=== PATIENT | male | born 1945 | race Caucasian/White ===

== ENCOUNTER 2022-06-09 23:29 | Emergency (ER) | payer OTHER, MEDICARE, SELFPAY ==
[2022-06-10 00:09] VITALS: BP 110/62; PULSE 83; RESP 18; TEMP 36.7; O2SAT 99; BMI 33.2
--- NOTE | 2022-06-10 00:25 | ED_ITS ---
HPI - Skin/Abscess/Foreign Bdy General Chief complaint: Skin/Abscess/Foreign Body Stated complaint: Right Foot Infection Time Seen by Provider: 06/09/22 23:35 History of Present Illness HPI narrative: 77-year-old man presenting to the emergency department on advice of Wound Care nurse who visited today and concern of potential infection in right foot post amputation stump. Has some drainage and smells bad. Apparently there was a revision of the initial amputation as Mr. Marrero was simply unhappy with the appearance of the closure. Has been open he says since 2nd surge Some whitish tissue was more newly visible. It has remained quite sensitive. [facility]. He has not had any fever chills the otherwise concern is of potential urinary tract infection bloody urine and order as well. Comparing notes from [facility] care everywhere from May 28 -- wound cultures were obtained and on resulted prior to hospitalization. It does appear as though there is a culture from 05/17 that grew Corynebacterium striatum Past medical includes mono neuropathy left posterior interosseous nerve Right carotid artery stenosis Nicotine dependence/abuse GERD History of peripheral vascular stenting history of stenosis of this. Overactive bladder History of foot amputation Delayed surgical wound healing of amputation stump of foot Hypertension Related Data Home Medications Medication Instructions Recorded Confirmed amlodipine 5 mg tablet 5 mg PO DAILY 06/10/22 06/10/22 aspirin 81 mg capsule 81 mg PO DAILY 06/10/22 06/10/22 atorvastatin 40 mg tablet (Lipitor) 40 mg PO DAILY 06/10/22 06/10/22 clopidogrel 75 mg tablet (Plavix) 75 mg PO DAILY 06/10/22 06/10/22 lidocaine 5 % topical patch 1 patch topical DAILY 06/10/22 06/10/22 mupirocin 2 % topical ointment 1 applic topical BID 06/10/22 06/10/22 omeprazole 20 mg capsule,delayed 20 mg PO DAILY 06/10/22 06/10/22 release silver (SilvaSorb topical 1 applic topical DIRECTED 06/10/22 06/10/22 gel,extended release) Allergies Allergy/AdvReac Type Severity Reaction Status Date / Time cortisone Allergy Unknown Unverified 05/27/22 15:39 house dust mite Allergy Unknown Unverified 05/27/22 15:39 perfume Allergy Unknown Unverified 05/27/22 15:39 Review of Systems Status of ROS: Reports: 10 or more systems reviewed and unremarkable except as noted in History and below [facility] Medical History (Updated 06/11/22 @ 23:04 by Hay Simpson MD) Carotid artery stenosis Chronic GERD Delayed surgical wound healing of foot amputation stump Foot amputee History of traumatic brain injury Mononeuropathy of left posterior interosseous nerve Overactive bladder PAD (peripheral artery disease) Right lower lobe lung mass Stenosis of peripheral vascular stent Tobacco abuse Social History Smoking Status: Current every day smoker What tobacco products do you use: cigarettes Do you use any of these nicotine containing products: None Second hand tobacco smoke exposure: No How often do you have a drink containing alcohol: never How often do you have six or more drinks on one occasion: Never AUDIT-C Alcohol total score: 0 Non-prescribed substance use: denies use Exam Narrative: Exam Narrative: Pleasant. Seems a little sleepy. Attends quite well though to this conversation. Cranial nerves 2-12. Breathing easily. Abdomen is soft and nontender. Cardiovascular with regular rate and rhythm Right extremity in question does have amputation stump with all toes missing. Generally with mild calor and erythema distally. Laterally in the incision is a 1 x 1/2 inch or so opening in which there is some yellowish green purulence. No significant induration. Fibrous tissue is evident within. Tender to palpation in this area. Const: Vital Signs, click to edit/add: Vital Signs - 24 hr 06/10/22 00:09 Temperature 98.0 F Pulse Rate [Right Pulse Oximeter] 83 Respiratory Rate 18 Blood Pressure [Ri ght Upper Arm] 110/62 Pulse Oximetry 99 Oxygen Delivery Me thod Room Air Documenting provider has reviewed patient's vital signs: yes Course Reevaluation(s) Reevaluation #1: Collected wound culture and nursing spent some time in normal saline irrigation of this wound. Redressed with wet to dry dressing. Vital Signs Vital signs: Initial Vital Signs Temperature 98.0 F 06/10/22 00:09 Temperature Source Temporal Artery Scan 06/10/22 00:09 Pulse Rate 83 06/10/22 00:09 Respiratory Rate 18 06/10/22 00:09 Blood Pressure 110/62 06/10/22 00:09 Blood Pressure Mean 78 06/10/22 00:09 Blood Pressure Position Sitting 06/10/22 00:09 Pulse Oximetry 99 06/10/22 00:09 Oxygen Delivery Method 06/10/22 00:09 Vital Signs Temperature 98.0 F 06/10/22 00:09 Pulse Rate 83 06/10/22 00:09 Respiratory Rate 18 06/10/22 00:09 Blood Pressure 110/62 06/10/22 00:09 Pulse Oximetry 99 06/10/22 00:09 Oxygen Delivery Method 06/10/22 00:09 Temperature 98.6 F 06/10/22 03:40 Pulse Rate 76 06/10/22 03:40 Respiratory Rate 16 06/10/22 03:40 Blood Pressure 116/67 06/10/22 03:40 Pulse Oximetry 99 06/10/22 02:00 Oxygen Delivery Method 06/10/22 02:00 MDM - Skin/Abscess/Foreign Bdy MDM Narrative Medical decision making narrative: If corynebacterium is present this might make treatment more difficult. I do not think it is unreasonable though to initiate doxycycline at this time. History of urinary frequency though took some time to obtain urine. Ultimately this did not look to be infected. Medical Records Attestation: I reviewed the patient's medical records. Lab Data Attestation: I reviewed the patient's lab results. Labs: Lab Results 06/10/22 Range/Units 01:41 Urine Color Yellow (Yellow) Urine Appearance Clear (Clear) Urine pH 6.5 (5.0-8.5) Ur Specific [place] 1.010 (1.000-1.030) Urine Protein Negative (Negative) Urine Glucose (UA) Negative (Negative) Urine Ketones Negative (Negative) Urine Blood Negative (Negative) Urine Nitrite Negative (Negative) Urine Bilirubin Negative (Negative) Urine Urobilinogen 1.0 (0.2-1.0) Ur Leukocyte Esterase Negative (Negative) Urine RBC 0-2 (0-2) Urine WBC 0-2 (0-5) Ur Squamous Epith Cells None (None-Few) Urine Bacteria None (None) Discharge Plan Discharge Clinical Impression: Cellulitis, Non-healing wound Patient Disposition: Home, Self-Care Condition: Stable Additional Instructions: Elevate your legs when you're at rest. Wound cultures are pending here. We will call if need to change direction of antibiotics. Start the antibiotics tonight. Doxycycline from [facility]. Take this for 12 days. Return for increasing tension/heat/pain/redness or fever. I understand you have a wound care nurse coming by on Tuesday. Prescriptions: No Action amlodipine 5 mg tablet 5 mg PO DAILY aspirin 81 mg capsule 81 mg PO DAILY clopidogrel [Plavix] 75 mg tablet 75 mg PO DAILY atorvastatin [Lipitor] 40 mg tablet 40 mg PO DAILY lidocaine 5 % adhesive patch,medicated 1 patch topical DAILY Rx Instructions: leave on most painful area for up to 12 hrs mupirocin 2 % ointment 1 applic topical BID Label Comments: apply topically to affected areas two times daily SilvaSorb Gel,Extended Release 1 applic topical DIRECTED Label Comments: apply topically as directed omeprazole 20 mg capsule,delayed release(DR/EC) 20 mg PO DAILY Follow Up/Referrals: Provider,Not a Local [Primary Care Provider] - Stand Alone Forms: [place] [employer] Info Instructions
--- OUTSIDE RECORDS SUMMARY | 2022-06-10 00:51 | XMS_ITS | Continuity of Care Document ---
:1945 Author Organization [facility] Care Team Providers Name Role Phone [facility] Unavailable Unavailable Problems Combined list of problems from Department of Defense and Veterans Affairs facilities. It does not include entries that were removed or entered in error. 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 Entered By: [facility] JOHAN LOGAN Comment: -left stent November 2018 Dec 15, 2018 Entered By: JOHAN LOGAN Comment: -right stent Sep 2016 Cervical Active Condition Jun 20, 2020 [place] radiculopathy Entered By: [facility] JAMES YEBOAH Comment: severe with loss of sensation in b/l hands and forearms Chronic back pain Active Condition [place] (SNOMED CT [facility] [id number]) Cognitive Active Condition [place] impairment [facility] CRACKED TOOTH Active Condition [place] [facility] Depression (SNOMED [place] [id number]) [facility] Dysphagia Active Condition Jun 20, 2020 [place] Entered By: [facility] JAMES YEBOAH Comment: 2/2 XRT GERD - Active Condition [place] Gastro-Esophageal [facility] Reflux Disease (SCT [id number]) 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, 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 Entered By: [facility] JAMES YEBOAH Comment: L TMA after nonhealing wound, requiring revision History of erectile Active Condition [place] dysfunction [facility] 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, 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 By: [facility] of larynx (SNOMED YASH VALDOVINOS CT [id number]) Comment: SCCa right TVC T2N0 10/04Apr 05, 2006 Entered By: MANOJ VALDOVINOS Comment: XRT Lumbar Active Condition Jun 20, 2020 [place] radiculopathy Entered By: [facility] JAMES YEBOAH Comment: severe with chronic saddle anesthesia and distal neuropathy Lumbar spondylosis Active Condition [place] [facility] Malignant neoplasm Active Condition [place] of lower lobe of [facility] right lung Malnutrition of Active Condition [place] moderate degree [facility] CS (Fan: 60% to less than 75% of standard weight) 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 [facility] uncertain significance Older adult Active Condition Jun 20, 2020 [place] behaviour Entered By: [facility] alteration JAMES YEBOAH Comment: episodes of impulsivity, resistance to redirection Pain in right hand Active Condition Jun 20, 2020 [place] Entered By: [facility] JAMES YEBOAH Comment: since injury in service Peripheral artery Active Condition Jun 20 020 [place] occlusive disease Entered By: [facility] JAMES YEBOAH Comment: s/p angioplasty LLE 12/2019 Solitary pulmonary Active Condition Jun 20, 2020 [place] nodule Entered By: [facility] JAMES YEBOAH Comment: 17 mm anterior RLL nodule, enlarging, concerning for adenocarcinoma Tinnitus Active Condition [place] [facility] Tobacco use Active [place] [facility] Traumatic brain Active Condition Jun 20 0 [place] injury Entered By: [facility] JAMES YEBOAH Comment: Occurred during service Urge incontinence Active Condition [place] of urine [facility] Ventricular Active Condition Jun 20, 2020 [place] premature Entered By: [facility] contractions JAMES YEBOAH Comment: symptomatic Diagnosis: Active Diagnosis [place] ICD-10-CM I77.9 [facility] Disorder of arteries and arterioles, unspecifiedwith Provider Comments: Peripheral artery occlusive disease (SCT [id number]) Diagnosis: Active Diagnosis [place] ICD-10-CM T87.53 [facility] Necrosis of amputation stump, right lower extremitywith Provider Comments: Necrosis of amputation stump, right lower extremity Diagnosis: Active Diagnosis [place] ICD-10-CM Z71.89 [facility] Other specified counselingwith Provider Comments: Other specified counseling Diagnosis: Active Diagnosis [place] ICD-10-CM R91.8 [facility] Other nonspecific abnormal finding of lung fieldwith Provider Comments: Multiple lung nodules Diagnosis: Active Diagnosis [place] ICD-10-CM L08.9 [facility] Local infection of the skin and subcutaneous tissue, unspwith Provider Comments: Local Infection of the Skin and Subcutaneous Tissue, unspecified Diagnosis: Active Diagnosis [place] ICD-10-CM Z71.9 [facility] Counseling, unspecifiedwith Provider Comments: Counseling, unspecified Diagnosis: Active Diagnosis [place] ICD-10-CM S91.309S [facility] Unspecified open wound, unspecified foot, sequelawith Provider Comments: Unspecified open Wound, unspecified Foot, [place] Diagnosis: Active Diagnosis [place] ICD-10-CM Z65.8 [facility] problems related to psychosocial circumstanceswith Provider Comments: Other specified Problems Related to Psychosocial Circumstances Diagnosis: Active Diagnosis [place] ICD-10-CM Z73.6 [facility] Limitation of activities due to disabilitywith Provider Comments: Limitation of activities due to disability Diagnosis: Active Diagnosis [place] ICD-10-CM R53.1 [facility] Weaknesswith Provider Comments: Weakness Diagnosis: Active Diagnosis [place] ICD-10-CM Z71.89 [facility] Other specified counselingwith Provider Comments: Other specified Counseling Diagnosis: Active Diagnosis [place] ICD-10-CM Z89.431 [facility] Acquired absence of right footwith Provider Comments: Acquired absence of right foot Diagnosis: Active Diagnosis [place] ICD-10-CM M62.81 [facility] Muscle weakness (generalized)with Provider Comments: Muscle weakness (generalized) Diagnosis: Active Diagnosis [place] ICD-10-CM Z71.81 [facility] Spiritual or zoroastrian counselingwith Provider Comments: Spiritual or zoroastrian counseling Diagnosis: Active Diagnosis [place] ICD-10-CM Z74.09 [facility] Other reduced mobilitywith Provider Comments: Reduced Mobility Diagnosis: Active Diagnosis [place] ICD-10-CM J18.0 [facility] Bronchopneumonia, unspecified organismwith Provider Comments: Bronchopneumonia, unspecified Organism Diagnosis: Active Diagnosis [place] ICD-10-CM Z91.81 [facility] History of fallingwith Provider Comments: History of falling Admit Reason: FTT Active Diagnosis [place] [facility] Diagnosis: Active Diagnosis [place] ICD-10-CM R06.02 [facility] Shortness of breathwith Provider Comments: Shortness of Breath Admit Reason: Active Diagnosis [place] CHILLS,WEAKNESS [facility] Diagnosis: Active Diagnosis [place] ICD-10-CM F43.21 [facility] Adjustment disorder with depressed moodwith Provider Comments: Adjustment Disorder with depressed mood Diagnosis: Active Diagnosis [place] ICD-10-CM F32.4 [facility] Major depressv disorder, single episode, in partial remiswith Provider Comments: Depression ([facility] [id number]) Diagnosis: Active Diagnosis [place] ICD-10-CM Z71.81 [facility] Spiritual or zoroastrian counselingwith Provider Comments: Spiritual or Baptism Counseling Diagnosis: Active Diagnosis [place] ICD-10-CM Z51.81 [facility] Encounter for therapeutic drug level monitoringwith Provider Comments: Encounter for Therapeutic Drug Level Monitoring Diagnosis: Active Diagnosis [place] ICD-10-CM Z89.439 [facility] Acquired absence of unspecified footwith Provider Comments: History of amputation of foot ([facility] [id number]) Diagnosis: Active Diagnosis [place] ICD-10-CM T87.89 [facility] Other complications of amputation stumpwith Provider Comments: Other Complications of Amputation Stump Diagnosis: Active Diagnosis [place] ICD-10-CM T87.89 [facility] Other complications of amputation stumpwith Provider Comments: Other complications of amputation stump Diagnosis: Active Diagnosis [place] ICD-10-CM Z79.899 [facility] Other terminal carman (current) drug therapywith Provider Comments: Other terminal carman (current) drug therapy Diagnosis: Active Diagnosis [place] ICD-10-CM Z01.818 [facility] Encounter for other preprocedural examinationwith Provider Comments: Encounter for other preprocedural examination Diagnosis: Active Diagnosis [place] ICD-10-CM T87.53 [facility] Necrosis of amputation stump, right lower extremitywith Provider Comments: Necrosis of Amputation Stump, right lower Extremity Diagnosis: Active Diagnosis [place] ICD-10-CM Z73.6 [facility] Limitation of activities due to disabilitywith Provider Comments: Limitation of Activities due to Disability Diagnosis: Active Diagnosis [place] ICD-10-CM R26.89 [facility] Other abnormalities of gait and mobilitywith Provider Comments: Other abnormalities of gait and mobility Diagnosis: Active Diagnosis [place] ICD-10-CM R26.89 [facility] Other abnormalities of gait and mobilitywith Provider Comments: Other Abnormalities of Gait and Mobility Diagnosis: Active Diagnosis [place] ICD-10-CM R13.12 [facility] Dysphagia, oropharyngeal phasewith Provider Comments: Dysphagia, oropharyngeal phase Diagnosis: Active Diagnosis [place] ICD-10-CM Z51.89 [facility] Encounter for other specified aftercarewith Provider Comments: Encounter for Other Specified Aftercare Admit Reason: S/P R Active Diagnosis [facility] [employer] [facility] Diagnosis: Active Diagnosis [place] ICD-10-CM M79.671 [facility] Pain in right footwith Provider Comments: Pain in right Foot Diagnosis: Active Diagnosis [place] ICD-10-CM I96 [facility] Gangrene, not elsewhere classifiedwith Provider Comments: Gangrene, not elsewhere classified Diagnosis: Active Diagnosis [place] ICD-10-CM I73.9 [facility] Peripheral vascular disease, unspecifiedwith Provider Comments: Peripheral vascular disease, unspecified Diagnosis: Active Diagnosis [place] ICD-10-CM Z48.89 [facility] Encounter for other specified surgical aftercarewith Provider Comments: Post anesthesia aftercare Diagnosis: Active Diagnosis [place] ICD-10-CM M54.16 [facility] Radiculopathy, lumbar regionwith Provider Comments: Lumbar radiculopathy ([facility] [id number]) Diagnosis: Active Diagnosis [place] ICD-10-CM I70.222 [facility] Ath[place]cl [place] arteries of extremities w rest pain, left legwith Provider Comments: Athscl [place] arteries of extremities w rest pain, left leg Diagnosis: Active Diagnosis [place] ICD-10-CM I70.222 [facility] Athscl [place] arteries of extremities w rest pain, left legwith Provider Comments: Atherosclerosis of [place] arteries of extremities with rest pain, left leg Diagnosis: Active Diagnosis [place] ICD-10-CM Z51.5 [facility] Encounter for palliative carewith Provider Comments: Encounter for Palliative Care Admit Reason: Active Diagnosis [place] CRITICAL LIMB [facility] ISCHEMIA Diagnosis: Active Diagnosis [place] ICD-10-CM Z51.81 [facility] Encounter for therapeutic drug level monitoringwith Provider Comments: Encounter for therapeutic drug level monitoring Admit Reason: RT Active Diagnosis [place] FOOT CELLULITIS [facility] Diagnosis: Active Diagnosis [place] ICD-10-CM M86.9 [facility] Osteomyelitis, unspecifiedwith Provider Comments: Osteomyelitis, unspecified Diagnosis: Active Diagnosis [place] ICD-10-CM L03.90 [facility] Cellulitis, unspecifiedwith Provider Comments: Cellulitis, unspecified Diagnosis: Active Diagnosis [place] ICD-10-CM D47.2 [facility] Monoclonal gammopathywith Provider Comments: Monoclonal gammopathy of uncertain significance (SCT [id number]) Diagnosis: Active Diagnosis [place] ICD-10-CM C34.31 [facility] Malignant neoplasm of lower lobe, right bronchus or lungwith Provider Comments: Malignant neoplasm of lower lobe of right lung (SCT [id number]) Diagnosis: Active Diagnosis [place] ICD-10-CM Z13.6 [facility] Encounter for screening for cardiovascular disorderswith Provider Comments: Encounter for Screening for Cardiovascular Disorders Diagnosis: Active Diagnosis [place] ICD-10-CM I70.234 [facility] [place]cl [place] art of right leg w ulcer of heel and midfootwith Provider Comments: Atherosclerosis of [place] Arteries of right Leg with Ulceration of Heel and Midfoot Diagnosis: Active Diagnosis [place] ICD-10-CM W19.XXXA V A [facility] Unspecified fall, initial encounterwith Provider Comments: Unspecified Fall, Initial Encounter Diagnosis: Active Diagnosis [place] ICD-10-CM K02.52 [facility] Dental caries on pit and fissure surfc penetrat into dentinwith Provider Comments: Dental caries on pit and fissure surface penetrating into dentin Diagnosis: Active Diagnosis [place] ICD-10-CM D47.2 [facility] Monoclonal gammopathywith Provider Comments: Monoclonal gammopathy of uncertain significance (SNOMED CT [id number]) Diagnosis: Active Diagnosis [place] ICD-10-CM R10.30 [facility] Lower abdominal pain, unspecifiedwith Provider Comments: Lower Abdominal Pain, unspecified Diagnosis: Active Diagnosis [place] ICD-10-CM Z23 [facility] Encounter for immunizationwith Provider Comments: Encounter for Immunization Diagnosis: Active Diagnosis [place] ICD-10-CM R06.00 [facility] Dyspnea, unspecifiedwith Provider Comments: Dyspnea, unspecified Diagnosis: Active Diagnosis [place] ICD-10-CM R06.00 [facility] Dyspnea, unspecifiedwith Provider Comments: Dyspnea Diagnosis: Active Diagnosis [place] ICD-10-CM R26.9 [facility] Unspecified abnormalities of gait and mobilitywith Provider Comments: Unspecified Abnormalities of Gait and Mobility Diagnosis: Active Diagnosis [place] ICD-10-CM M54.5 Low [facility] back painwith Provider Comments: Low Back Pain Diagnosis: Active Diagnosis [place] ICD-10-CM Z71.3 [facility] Dietary counseling and surveillancewith Provider Comments: Dietary counseling and surveillance Diagnosis: Active Diagnosis [place] ICD-10-CM R13.10 [facility] Dysphagia, unspecifiedwith Provider Comments: Dysphagia ([facility] [id number]) Diagnosis: Active Diagnosis [place] ICD-10-CM E46 [facility] Unspecified protein-calorie malnutritionwith Provider Comments: Malnutrition of moderate degree (Fan: 60% to less than 75% of standard weight) (SCT [id number]) Diagnosis: Active Diagnosis [place] ICD-10-CM F43.23 [facility] Adjustment disorder with mixed anxiety and depressed moodwith Provider Comments: Adjustment Disorder with mixed Anxiety and depressed mood Diagnosis: Active Diagnosis [place] ICD-10-CM R91.1 [facility] Solitary pulmonary nodulewith Provider Comments: Solitary pulmonary nodule (SCT [id number]) Diagnosis: Active Diagnosis [place] ICD-10-CM M17.0 [facility] Bilateral primary osteoarthritis of kneewith Provider Comments: Bilateral primary osteoarthritis of knee Diagnosis: Active Diagnosis [place] ICD-10-CM R93.1 [facility] Abnormal findings on dx imaging of heart and cor circwith Provider Comments: Abnormal Findings on Diagnostic Imaging of Heart and Coronary Circulation Diagnosis: Active Diagnosis [place] ICD-10-CM R74.8 [facility] Abnormal levels of other serum enzymeswith Provider Comments: Abnormal Levels of other Serum Enzymes Medications Combined list of outpatient medications from Department of Defense and Veterans Affairs facilities. Medications provided include 1) outpatient medications from the last 15 months, and 2) patient-reported medications. Medication Details Route Status Patient Prescription Prescription Last Ordering Order Source Instructions Expires Number Dispense Provider Date Date ACETAMINOPH TAKE TWO ORALLY 05/09/2021 [id number] SIERRA FITZPATRICK 04/09/ [place] 500[facility] TABLETS 1 GORY [facility] FOUR TIMES A DAY NEEDED FOR PAIN*NOT TO EXCEED 4000MG IN 24 HOURS FROM ALL SOURCES* ALBUTEROL INHALE 2 INHALA DISCONT 04/10/2022 [id number] PA LDON,TE 03/12/ [place] 90MCG/ACTUA PUFFS BY TION INUED 2 NZIN 2021 [facility] T (CFC-F) INHALATI HCS INHL,ORAL,8 ON EVERY .5GM DOSE 4 HOURS COUNTER NEEDED FOR IMMEDIAT E RELIEF OF SHORTNES S OF BREATH *SHAKE WELL* AMLODIPINE TAKE ONE ORALLY DISCONT 05/27/2023 [id number] M OORHEAD, 06/07/ [place] BESYLATE TABLET INUED 2 2021 [facility] [facility] A 10MG TAB BY MOUTH (EDIT) M HCS EVERY DAY TO LOWER BLOOD PRESSURE AMLODIPINE TAKE ONE ORALLY DISCONT 06/09/2022 [id number] P ALDON,TE 03/12/ [place] BESYLATE TABLET INUED 2 2021 [facility] 10MG TAB BY MOUTH HCS EVERY DAY TO LOWER BLOOD PRESSURE AMLODIPINE TAKE ONE ORALLY HOLD 06/03/2023 [id number] MOORH EAD, 06/03/ [place] BESYLATE TABLET 2 2021 [place] A 5MG TAB BY MOUTH M HCS EVERY DAY TO LOWER BLOOD PRESSURE ASPIRIN CHEW ONE ORALLY DISCONT 06/09/2022 [id number] PALDON ,TE 03/12/ [place] 81MG TABLET INUED 2 2021 [facility] TAB,CHEWABL BY MOUTH HCS E EVERY DAY FOR PERIPHER AL ARTERY DISEASE ASPIRIN CHEW ONE ORALLY 12/10/2021 [id number] CARCOR A,Y 11/10/ [place] 81MG TABLET 2 ASER P 2021 [facility] TAB,CHEWABL BY MOUTH HCS E EVERY DAY ATORVASTATI TAKE ONE ORALLY HOLD 06/03/2023 [id number] OBINNA , 06/02/ [place] CA 40MG TABLET 2021 [facility] TAB BY MOUTH M HCS EVERY DAY FOR CHOLESTE ROL/HEAR T PROTECTI ON ATORVASTATI TAKE ORALLY DISCONT 05/27/2023 [id number] MOORH EAD, 06/07/ [place] 40MG ONE-HALF INUED 2 NANCY2021 [place] [facility] TAB TABLET (EDIT) M HCS BY MOUTH EVERY DAY FOR CHOLESTE ROL/HEAR T PROTECTI ON ATORVASTATI TAKE ORALLY DISCONT 06/09/2022 [id number] PALDO N,TE 03/12/ [place] 40MG ONE-HALF INUED 2 2021 [facility] TAB TABLET HCS BY MOUTH EVERY DAY FOR CHOLESTE ROL/HEAR T PROTECTI ON ATORVASTATI TAKE ORALLY 12/10/2021 [id number] CARCO RA,Y 11/10/ [place] 40MG ONE-HALF 2 ASER P 2021 [facility] TAB TABLET HCS BY MOUTH EVERY DAY CEFADROXIL TAKE TWO ORALLY DISCONT 04/10/2022 [id number] P ALDON,TE 03/12/ [place] 500MG CAP CAPSULES INUED 2 NZIN 2021 [facility] BY MOUTH [facility]CS TWICE A DAY UNTIL Tuesday03/19/22 FOR INFECTIO N CHOLECALCIF TAKE ONE ORALLY DISCONT 06/09/2022 [id number] PALDON,TE 03/12/ [place] JUWAN 25MCG TABLET INUED 2 NZ2021 [facility] (1,000UNIT) BY MOUTH HCS TAB EVERY DAY FOR SUPPLEME NTATION/ BONE HEALTH CLEANSER,SK SPRAY TO TOPICA DISCONT 06/09/2022 [id number] PALDON,TE 03/12/ [place] INTEGRITY AFFECTED LLY INUED 2 2021 [facility] SPRAY,TOP AREA HCS TOPICALL Y TUESDAY, Y AND TUESDAY FOR WOUND CARE CLOPIDOGREL TAKE ONE ORALLY ACTIVE 05/27/2023 [id number] M [place], 05/31/ [place] BISULFATE TABLET 2 NANCY 2022 [facility] 75MG TAB BY MOUTH M HCS EVERY DAY FOR PAD AND OCCLUDED CAROTID STENT, REEVALUA TE AT 1 YEAR CLOPIDOGREL TAKE ONE ORALLY DISCONT 04/12/2022 [id number] PALDON,TE 03/12/ [place] BISULFATE TABLET INUED 2 NZ2021 [facility] 75MG TAB BY MOUTH HCS EVERY MORNING UNTIL 04/13/22 FOR PERIPHER AL ARTERY DISEASE AND STENTS COLLAGENASE APPLY TO TOPICA ACTIVE 06/23/2022 [id number] R AMPETSRE 05/24/ [place] 250UNT/GM AFFECTED LLY 2 ITER,EDGAR 2021 [place] [facility] OINT,TOP AREA HEW C HCS TOPICALL Y DIRECTED COLLAGENASE APPLY TOPICA DISCONT 03/12/2023 [id number] PA LDON,TE 03/12/ [place] 250UNT/GM MODERATE LLY INUED 2 NZIN 2021 [facility] OINT,TOP AMOUNT HCS TO RIGHT FOOT TMA INCISION TOPICALL Y TUESDAY, Y AND TUESDAY FOR WOUND CARE CYANOCOBALA TAKE ONE ORALLY DISCONT 06/09/2022 [id number] PALDON,TE 03/12/ [place] 1000MCG TABLET INUED 2 NZIN 2021 [facility] TAB BY MOUTH [facility]CS EVERY DAY FOR LOW B12 LEVELS CYCLOBENZAP TAKE ONE ORALLY 05/09/2021 [id number] SIERRA FITZPATRICK 04/09/ [place] RINE HCL TABLET 1 GORY 2020 [facility] 10MG TAB BY MOUTH [facility] EVERY 8 HOURS NEEDED FOR MUSCLE RELAXER DOXYCYCLINE TAKE ONE ORALLY DISCONT 01/24/2022 [id number] JAMEE,SY 12/25/ [place] HYCLATE TABLET INUED 2 ED W 2021 [facility] 100MG TAB BY MOUTH HCS TWICE A DAY ENSURE PLUS 1 CARTON ORALLY DISCONT 03/11/2023 [id number] FAWOLE,TA 03/12/ [place] LIQUID BY MOUTH INUED 2 JUDEEN O 2021 [facility] VANILLA THREE HCS TIMES A DAY FOLIC ACID TAKE ONE ORALLY DISCONT 06/09/2022 [id number] P ALDON,TE 03/12/ [place] 1MG TAB TABLET INUED 2 NZIN 2021 [facility] BY MOUTH [facility]CS EVERY DAY FOR LOW FOLATE/B LOOD LEVELS GABAPENTIN TAKE TWO ORALLY ACTIVE 06/02/2023 [id number] MO [place], 06/03/ [place] 300MG CAP CAPSULES 2 NANCY 2022 [place] [facility] BY MOUTH HCS THREE TIMES A DAY FOR NERVE PAIN *CAPSULE S MAY BE OPENED AND SPRINKLE D ON FOOD LIKE APPLESAU CE, OJ, PUDDING GABAPENTIN TAKE ONE ORALLY DISCONT 06/09/2022 [id number] P ALDON,TE 03/12/ [place] 300MG CAP CAPSULE INUED 2 NZ2021 [facility] BY MOUTH [facility]CS THREE TIMES A DAY FOR NERVE PAIN *CAPSULE S MAY BE OPENED AND SPRINKLE D ON FOOD LIKE APPLESAU CE, OJ, PUDDING GABAPENTIN TAKE ONE ORALLY 10/07/2021 [id number] C HRISTNER 09/09/ [place] 300MG CAP CAPSULE 2 GENARO 2021 [facility] BY MOUTH S HCS EVERY DAY GUAIFENESIN TAKE 1-2 ORALLY ACTIVE 06/02/2023 [id number] M [place], 06/01/ [place] 100MG/5ML TEASPOON 2 2021 [place] [facility] (SF & AF) FUL(S) M HCS LIQUID BY MOUTH FOUR TIMES A DAY NEEDED FOR COUGH LIDOCAINE APPLY TOPICA ACTIVE 05/26/2023 [id number] OBINNA , 05/25/ [place] 5% OINT,TOP MODERATE LLY 2 2021 [facility] AMOUNT M HCS TOPICALL Y THREE TIMES A DAY FOR PAIN LIDOCAINE APPLY TOPICA DISCONT 10/29/2022 [id number] MOORHE AD, 10/29/ [place] 5% OINT,TOP MODERATE LLY INUED 2 2021 [facility] [place] [facility] AMOUNT M HCS TOPICALL Y THREE TIMES A DAY FOR PAIN LIDOCAINE APPLY TOPICA DISCONT 07/19/2021 [id number] MOORHEA D, 07/22/ [place] 5% OINT,TOP MODERATE LLY INUE 1 2019 [place] [facility] AM[place] M HCS TOPICALL Y THREE TIMES A DAY FOR PAIN LIDOCAINE APPLY 1 TOPICA ACTIVE 05/01/2023 [id number] RAMPET SRE 05/04/ [place] 5% PATCH PATCH LLY 2 ITER,EDGAR 2021 [facility] TOPICALL HEW C HCS Y EVERY DAY FOR PAIN. WEAR FOR ONLY 12 HOURS THEN REMOVE FOR 12 HOURS. LIDOCAINE APPLY 1 TOPICA DISCONT 04/10/2022 [id number] PAL DON,TE 03/12/ [place] 5% PATCH PATCH LLY INUED 2 NZIN 2021 [facility] TOPICALL HCS Y EVERY EVENING FOR PAIN ON RIGHT FOOT AWAY FROM SURGICAL WOUND. WEAR FOR ONLY 12 HOURS THEN REMOVE FOR 12 HOURS. MAGNESIUM TAKE 1 ORALLY 07/04/2021 [id number] RANWEI LER 06/05/ [place] CITRATE BOTTLE 1 ,LETA B 2020 [facility] LIQUID,ORAL BY MOUTH HCS ONCE AT 12PM (NOON) ONE DAY BEFORE PROCEDUR E FOR COLON PREP MIRTAZAPINE TAKE ORALLY DISCONT 06/09/2022 [id number] PALDO N,TE 03/12/ [place] 30MG TAB ONE-HALF INUED 2 NZIN 2021 [facility] TABLET HCS BY MOUTH AT BEDTIME FOR APPETITE , MOOD AND SLEEP MUPIROCIN APPLY TOPICA 05/26/2022 [id number] ABHIJIT ARITA 04/26/ [place] 2% OINT,TOP MODERATE LLY 2 VELASQUEZ R 2021 [facility] AM[facility]CS TOPICALL Y TWICE A DAY NURSING USE MISCEL ACTIVE KACEY, 03/31/ [place] L[place] BUDDY 2021 [facility] MEDICATIONS S M HCS MISCELLANEO US OMEPRAZOLE TAKE TWO ORALLY ACTIVE 05/27/2023 [id number] MO ORHEAD, 06/07/ [place] 20MG CAP,EC CAPSULES 2 NANCY 2021 [facility] BY MOUTH M HCS EVERY DAY FOR STOMACH PROTECTI ON *CAPSULE MAY BE OPENED AND SPRINKLE D ON SOFT FOOD LIKE APPLESAU CE. DO NOT CHEW. SWALLOW IMMEDIAT KEYSHAWN WITH GLASS OF WATER OMEPRAZOLE TAKE TWO ORALLY DISCONT 06/09/2022 [id number] P ALDON,TE 03/12/ [place] 20MG CAP,EC CAPSULES INUED 2 NZIN 2021 [facility] BY MOUTH HCS EVERY DAY FOR STOMACH PROTECTI ON *CAPSULE MAY BE OPENED AND SPRINKLE D ON SOFT FOOD LIKE APPLESAU CE. DO NOT CHEW. SWALLOW IMMEDIAT [place] WITH GLASS OF WATER PEG-3350/EL TAKE 1 ORALLY 07/04/2021 [id number] RA FELICITA 06/05/ [place] ECTROLYTES CONTAINE 1 ,LETA B 2020 [place] [facility] PWDR [facility] (4 HCS LITERS) BY MOUTH DIRECTED FOR COLON PREP *MIX ACCORDIN G TO PACKAGE INSTRUCT IONS. *DRINK ONE-HALF CONTAINE R STARTING AT 4PM THE DAY BEFORE EXAM. DRINK REMAININ G ONE-HALF CONTAINE R 6 HOURS BEFORE EXAM. FOR COLON PREP *MIX ACCORDIN G TO PACKAGE INSTRUCT IONS. *DRINK ONE-HALF CONTAINE R STARTING AT 4PM THE DAY BEFORE EXAM. DRINK REMAININ G ONE-HALF CONTAINE R 6 HOURS BEFORE EXAM. PREDNISONE TAKE ORALLY 05/09/2021 [id number] SIERRA FITZPATRICK 04/09/ [place] 10MG TAB FOUR 1 GORY 2020 [facility] TABLETS [facility] BY MOUTH EVERY DAY FOR 3 DAYS, THEN TAKE THREE TABLETS EVERY DAY FOR 3 DAYS, THEN TAKE TWO TABLETS EVERY DAY FOR 3 DAYS, THEN TAKE ONE TABLET EVERY DAY FOR 3 DAYS FOR BACK PAIN SERTRALINE TAKE ORALLY 06/21/2021 [id number] MOORHE AD, 06/20/ [place] HCL 50MG ONE-HALF 1 NANCY 2019 [facility] TAB TABLET M HCS BY MOUTH EVERY DAY SILVASORB APPLY TOPICA ACTIVE 04/20/2023 [id number] RAMPETSR E 04/21/ [place] GEL,TOP SMALL LLY 2 ITER,EDGAR 2021 [facility] TO AFFECTED AREA TOPICALL Y DIRECTED SULFAMETHOX TAKE 1 ORALLY DISCONT 01/16/2022 [id number] CH RISTNER 12/17/ [place] AZOLE TABLET INUED 2 ,GENARO 2021 [place] [facility] 800MG/TRIME BY MOUTH S HCS THOPRIM TWICE A 160MG TAB DAY SULFAMETHOX TAKE 1 ORALLY DISCONT 01/12/2022 [id number] ME ADRYAN,AI 12/13/ [place] AZOLE TABLET INUED 2 TAMERA M 2021 [place] [facility] 800MG/TRIME BY MOUTH HCS THOPRIM TWICE A 160MG TAB DAY TROSPIUM CL TAKE ONE ORALLY 04/16/2021 [id number] RICKY 04/16/ [place] 20MG TAB TABLET 1 ,MOSES 2019 [facility] [facility] BY [facility]TH [facility] TWICE A DAY ON EMPTY STOMACH FOR BLADDER VASHE WOUND APPLY TOPICA ACTIVE 05/25/2023 [id number] R AMPETSRE 05/24/ [place] THERAPY DIRECTED LLY 2 ITER,EDGAR 2021 [place] [facility] SOLN,TOP TOPICALL HEW C HCS Y DIRECTED SOAK THE AFFECTED AREA FOR 5 MINUTES WITH THE VASHE-MO ISTENED GAUZE, THEN USE THE SAME GAUZE TO GENTLY EXFOLIAT E THE WOUND BASE. SOAK THE AFFECTED AREA FOR 5 MINUTES WITH THE VASHE-MO ISTENED GAUZE, THEN USE THE SAME GAUZE TO GENTLY EXFOLIAT E THE WOUND BASE. Allergies, Adverse Reactions, Alerts Combined list of allergies from Department of Defense and Veterans Affairs facilities. It does not include entries that were removed or entered in error. Substance Category Reaction Severity Reaction Status Date Comments S ource type Reported CORTISONE Propensity HIVES Propensity active [place] to adverse to adverse 5 [facility] reactions reactions HCS to drug to drug (finding) (finding) DUST Propensity Asthma Propensity active [place] to adverse finding to adverse 7 [facility] reaction reaction HCS (finding) (finding) PERFUME Propensity Cough, Propensity active [place] to adverse Throat to adverse 7 [facility] reaction irritation reaction HCS (finding) (finding) Immunizations Combined list of available immunizations from the Department of Defense and Veterans Affairs facilities. 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 PNEUMOCOCCAL complet [id number] 117, [place] POLYSACCHARID 2021 ed [id number] [facility] E PPV23 HCS COVID-19 1 complet JSN; PR [place] (Circadence), 2020 ed [id number]; [facility] VECTOR-NR, HCS [id number], PF, 1 0.5 ML INFLUENZA, complet [place] SEASONAL, 2015 ed [facility] INJECTABLE HCS PNEUMOCOCCAL complet Wyet h [place] CONJUGATE PCV 2016 ed [id number] [facility] 13 exp 02/12 HCS TDAP complet GlaxoSmit M [place] 2016 ed hKline [facility] KJ4MS exp HCS 07/17/17 PNEUMOCOCCAL, 01/12/ CHITO SPARKS 109 compl et [place] UNSPECIFIED 2004 [place] ed [place] [facility] FORMULATION [facility] TD(ADULT) 01/12/ CHITO SPARKS 139 complet [place] UNSPECIFIED 2004 [facility] ed [facility] Results Combined list of recent chemistry, hematology and other laboratory results from Department of Defense and Veterans Affairs, ranging from 15 months to all on record, depending upon the facility. Order Results Value Reference Date Interpretation Specimen Commen ts Source Name Range CBC & LEUKOCYTES 9.60 4.0 - 11.0 06/01 Specimen T ype: BLOOD [place] DIFF [#/VOLUME] Comment: Aut omated Differential Performed IS [facility] IN BLOOD Ordering Provi cl: GENARO PARK BY Report Released Date/Time: Dec 17, 2021 03:12 PM AUTOMATED Reporting Lab : [facility] HCS COUNT [place] [address] Performing Lab: [facility] [address] [place] [address] CBC & ERYTHROCYT 4.52 4.6 - 6.2 10 L Specimen Ty pe: BLOOD [place] DIFF ES /2021 Comment: Automa lloyd Differential Performed IS [facility] HCS [#/VOLUME] Ordering Pro vider: GENARO PARK IN BLOOD Report Release d Date/Time: Dec 17, 2021 03:12 PM BY Reporting Lab: [facility] HCS AUTOMATED [address] [facility] [address] COUNT Performing Lab: [facility] HCS [address] [facility] [address] CBC & HEMOGLOBIN 14.1 13.5 - 06/01 Specimen Type : BLOOD [place] DIFF [MASS/VOLU 17.9 /2021 Comment: Aut omated Differential Performed IS [facility] ME] IN Ordering Provid er: GENARO PARK BLOOD Report Released Date/Time: Dec 17, 2021 03:12 PM Reporting Lab: [facility] HCS [address] [place] [facility] [address] Performing Lab: [facility] HCS [address] [place] [facility] [address] CBC & HEMATOCRIT 43.4 41 - 54 06/01 Specimen Type : BLOOD [place] DIFF [VOLUME /2021 Comment: Automa lloyd Differential Performed IS [facility] FRACTION] Ordering Prov ider: GENARO PARK OF BLOOD Report Release d Date/Time: Dec 17, 2021 03:12 PM BY Reporting Lab: [facility] AUTOMATED [address] [facility] [address] COUNT Performing Lab: [facility] HCS [address] [place] [facility] [address] CBC & MCV 96.0 80 - 100 06/01 Specimen Type: BLOOD [place] DIFF [ENTITIC /2021 Comment: Autom ated Differential Performed IS [facility] VOLUME] BY Ordering Pro vider: GENARO PARK AUTOMATED Report Releas ed Date/Time: Dec 17, 2021 03:12 PM COUNT Reporting Lab: [facility] HCS [address] [place] [facility] [address] Performing Lab: [facility] HCS [address] [facility] [address] CBC & MCH 31.2 27 - 33 1004 Specimen Type: B LOOD [place] DIFF [ENTITIC /2021 Comment: Autom ated Differential Performed IS [facility] MASS] BY Ordering Provi cl: GENARO PARK AUTOMATED Report Releas ed Date/Time: Dec 17, 2021 03:12 PM COUNT Reporting Lab: [facility] HCS [address] [place] [address] Performing Lab: [facility] HCS [address] [place] [address] CBC & MCHC 32.5 32.0 - 06/01 Specimen Type: B LOOD [place] DIFF [MASS/VOLU 37.5 /2021 Comment: Aut omated Differential Performed IS [facility] ME] BY Ordering Provid er: GENARO PARK AUTOMATED Report Releas ed Date/Time: Dec 17, 2021 03:12 PM COUNT Reporting Lab: [facility] [place] [address] Performing Lab: [facility] [place] [address] CBC & PLATELETS 411 150 - 400 10 H Specimen Typ e: BLOOD [place] DIFF [#/VOLUME] /2021 Comment: Aut omated Differential Performed IS [facility] IN BLOOD Ordering Provi cl: GENARO PARK BY Report Released Date/Time: Dec 17, 2021 03:12 PM AUTOMATED Reporting Lab : [facility] COUNT [place] [address] Performing Lab: [facility] [place] [address] CBC & PLATELET 9.6 7.4 - 10.4 06/01 Specimen Typ e: BLOOD [place] DIFF MEAN /2021 Comment: Automa lloyd Differential Performed IS [facility] VOLUME Ordering Provid er: GENARO PARK [ENTITIC Report Release d Date/Time: Dec 17, 2021 03:12 PM VOLUME] IN Reporting La b: [facility] BLOOD [place] [address] AUTOMATED Performing La b: [facility] COUNT [place] [address] CBC & NEUTROPHIL 54.6 06/01 Specimen Type : BLOOD [place] DIFF S/100 /2021 Comment: Automa lloyd Differential Performed IS [facility] LEUKOCYTES Ordering Pro vider: GENARO PAKR IN BLOOD Report Release d Date/Time: Dec 17, 2021 03:12 PM BY MANUAL Reporting Lab : [facility] COUNT [address] [place] [facility] [address] Performing Lab: [facility] HCS [address] [facility] [address] CBC & LYMPHOCYTE 29.6 06/01 Specimen Type : BLOOD [place] DIFF S/100 Comment: Automa lloyd Differential Performed IS [facility] LEUKOCYTES Ordering Pro vider: GENARO PARK IN BLOOD Report Release d Date/Time: Dec 17, 2021 03:12 PM BY MANUAL Reporting Lab : [facility] COUNT [address] [place] [facility] [address] Performing Lab: [facility] [address] [place] [facility] [address] CBC & MONOCYTES/ 12.7 06/01 Specimen Type : BLOOD [place] DIFF 100 Comment: Automa lloyd Differential Performed IS [facility] LEUKOCYTES Ordering Pro vider: GENARO PARK IN BLOOD Report Release d Date/Time: Dec 17, 2021 03:12 PM BY Reporting Lab: [facility] AUTOMATED [address] [facility] [address] COUNT Performing Lab: [facility] [address] [place] [facility] [address] CBC & EOSINOPHIL 2.5 06/01 Specimen Type : BLOOD [place] DIFF S/ Comment: Automa lloyd Differential Performed IS [facility] LEUKOCYTES Ordering Pro vider: GENARO PARK IN BLOOD Report Release d Date/Time: Dec 17, 2021 03:12 PM BY Reporting Lab: [facility] AUTOMATED [address] [facility] [address] COUNT Performing Lab: [facility] [address] [place] [facility] [address] CBC & BASOPHILS/ 0.3 06/01 Specimen Type : BLOOD [place] DIFF 100 Comment: Automa lloyd Differential Performed IS [facility] LEUKOCYTES Ordering Pro vider: GENARO PARK IN BLOOD Report Release d Date/Time: Dec 17, 2021 03:12 PM BY MANUAL Reporting Lab : [facility] COUNT [address] [place] [facility] [address] Performing Lab: [facility] [address] [place] [facility] [address] CBC & ERYTHROCYT 15.7 11.5 - 10/04 H Specimen Type : BLOOD [place] DIFF E 14.5 /2021 Comment: Automa lloyd Differential Performed IS [facility] DISTRIBUTI Ordering Pro vider: GENARO PARK ON WIDTH Report Release d Date/Time: Dec 17, 2021 03:12 PM [RATIO] BY Reporting La b: [facility] AUTOMATED [facility] [address] COUNT Performing Lab: [facility] [address] [place] [facility] [address] CBC & LYMPHOCYTE 2.84 1.0 - 4.0 10 Specimen Ty pe: BLOOD [place] DIFF S /2021 Comment: Automa lloyd Differential Performed IS [facility] [#/VOLUME] Ordering Pro vider: GENARO PARK IN BLOOD Report Release d Date/Time: Dec 17, 2021 03:12 PM BY Reporting Lab: [facility] AUTOMATED [address] [facility] [address] COUNT Performing Lab: [facility] [address] [place] [facility] [address] CBC & MONOCYTES 1.22 0.1 - 1.0 10/04 H Specimen Typ e: BLOOD [place] DIFF [#/VOLUME] /2021 Comment: Aut omated Differential Performed IS [facility] IN BLOOD Ordering Provi cl: GENARO PARK BY Report Released Date/Time: Dec 17, 2021 03:12 PM AUTOMATED Reporting Lab : [facility] COUNT [address] [place] [facility] [address] Performing Lab: [facility] [address] [place] [facility] [address] CBC & NEUTROPHIL 5.24 2.0 - 7.7 10 Specimen Ty pe: BLOOD [place] DIFF S /2021 Comment: Automa lloyd Differential Performed IS [facility] [#/VOLUME] Ordering Pro vider: GENARO PARK IN BLOOD Report Release d Date/Time: Dec 17, 2021 03:12 PM BY Reporting Lab: [facility] AUTOMATED [address] [facility] [address] COUNT Performing Lab: [facility] [address] [place] [facility] [address] CBC & EOSINOPHIL 0.24 0 - 0.5 06/01 Specimen Type : BLOOD [place] DIFF S /2021 Comment: Automa lloyd Differential Performed IS [facility] [#/VOLUME] Ordering Pro vider: GENARO PARK IN BLOOD Report Release d Date/Time: Dec 17, 2021 03:12 PM BY Reporting Lab: [facility] AUTOMATED [facility] [address] COUNT Performing Lab: [facility] [address] [place] [address] CBC & BASOPHILS 0.03 0 - 0.2 06/01 Specimen Type: BLOOD [place] DIFF [#/VOLUME] /2021 Comment: Aut omated Differential Performed IS [facility] IN BLOOD Ordering Provi cl: GENARO PARK BY Report Released Date/Time: Dec 17, 2021 03:12 PM AUTOMATED Reporting Lab : [facility] [place] [address] Performing Lab: [facility] [place] [address] CBC & IG(META,MY 0.3 06/01 Specimen Type : BLOOD [place] DIFF ANNA,PRO) /2021 Comment: Autom ated Differential Performed IS [facility] Ordering Provid er: GENARO PARK Report Released Date/Time: Dec 17, 2021 03:12 PM Reporting Lab: [facility] [place] [address] Performing Lab: [facility] [place] [address] CBC & IMMATURE 0.03 0 - 0.1 06/01 Specimen Type: BLOOD [place] DIFF GRANULOCYT /2021 Comment: Aut omated Differential Performed IS [facility] ES Ordering Provid er: GENARO PARK [PRESENCE] Report Relea sed Date/Time: Dec 17, 2021 03:12 PM IN BLOOD Reporting Lab: [facility] BY [place] [address] AUTOMATED Performing La b: [facility] COUNT [place] [address] CBC & PLATELETS 2.0 0 - 10 06/01 Specimen Type: BLOOD [place] DIFF RETICULATE /2021 Comment: Aut omated Differential Performed IS [facility] D/100 Ordering Provid er: GENARO PARK PLATELETS Report Releas ed Date/Time: Dec 17, 2021 03:12 PM IN BLOOD Reporting Lab: [facility] BY [place] [address] AUTOMATED Performing La b: [facility] COUNT [place] [address] COMPREHE CREATININE 0.9 0.7 - 1.2 06/01 Specimen T ype: PLASMA [place] NSIVE [MASS/VOLU /2021 No comment en tered. IS [facility] METABOLI ME] IN Ordering Provi cl: GENARO PARK SERUM OR Report Release d Date/Time: Dec 17, 2021 03:12 PM PANEL+MG PLASMA Reporting Lab: [facility] [address] [place] [facility] [address] Performing Lab: [facility] [address] [facility] [address] COMPREHE UREA 12 8 - 26 10 Specimen Type: PLASMA [place] NSIVE No comment ente red. IS [facility] METABOLI [MASS/VOLU Ordering Pr ovider: GENARO PARK ME] IN Report Released Date/Time: Dec 17, 2021 03:12 PM PANEL+MG SERUM OR Reporting Lab : [facility] PLASMA [address] [facility] [address] Performing Lab: [facility] [address] [facility] [address] COMPREHE GLUCOSE 110 70 - 100 10/ H Specimen Type: PLASMA [place] NSIVE [MASS/VOLU /2021 No comment en tered. IS [facility] METABOLI ME] IN Ordering Provi cl: GENARO PARK SERUM OR Report Release d Date/Time: Dec 17, 2021 03:12 PM PANEL+MG PLASMA Reporting Lab: [facility] [address] [place] [facility] [address] Performing Lab: [facility] [address] [place] [facility] [address] COMPREHE SODIUM 139 136 - 145 06/01 Specimen Type : PLASMA [place] NSIVE [MOLES/VOL No comment en tered. IS [facility] METABOLI UME] IN Ordering Provi cl: GENARO PARK SERUM OR Report Release d Date/Time: Dec 17, 2021 03:12 PM PANEL+MG PLASMA Reporting Lab: [facility] [address] [place] [facility] [address] Performing Lab: [facility] [address] [facility] [address] COMPREHE POTASSIUM 3.7 3.5 - 5.1 06/01 Specimen Ty pe: PLASMA [place] NSIVE [MOLES/VOL /2021 No comment en tered. IS [facility] METABOLI UME] IN Ordering Provi cl: GENARO PARK SERUM OR Report Release d Date/Time: Dec 17, 2021 03:12 PM PANEL+MG PLASMA Reporting Lab: [facility] [address] [facility] [address] Performing Lab: [facility] [address] [facility] [address] COMPREHE CHLORIDE 108 98 - 107 10/ H Specimen Type : PLASMA [place] NSIVE [MOLES/VOL /2021 No comment en tered. IS [facility] METABOLI UME] IN Ordering Provi cl: GENARO PARK SERUM OR Report Release d Date/Time: Dec 17, 2021 03:12 PM PANEL+MG PLASMA Reporting Lab: [facility] [address] [facility] [address] Performing Lab: [facility] [address] [facility] [address] COMPREHE CARBON 24 22 - 06/01 Specimen Type: PLASMA [place] NSIVE No comment ente red. IS [facility] METABOLI TOTAL Ordering Provi cl: GENARO PARK [MOLES/VOL Report Relea sed Date/Time: Dec 17, 2021 03:12 PM PANEL+MG UME] IN Reporting Lab: [facility] SERUM OR [address] [place] [facility] [address] PLASMA Performing Lab: [facility] [address] [facility] [address] COMPREHE CALCIUM 9.2 8.4 - 10.2 06/01 Specimen Typ e: PLASMA [place] NSIVE [MASS/VOLU /2021 No comment en tered. IS [facility] METABOLI ME] IN Ordering Provi cl: GENARO PARK SERUM OR Report Release d Date/Time: Dec 17, 2021 03:12 PM PANEL+MG PLASMA Reporting Lab: [facility] [address] [facility] [address] Performing Lab: [facility] [address] [facility] [address] COMPREHE PROTEIN 6.8 6.0 - 8.3 06/01 Specimen Type : PLASMA [place] NSIVE [MASS/VOLU /2021 No comment en tered. IS [facility] METABOLI ME] IN Ordering Provi cl: GENARO PARK SERUM OR Report Release d Date/Time: Dec 17, 2021 03:12 PM PANEL+MG PLASMA Reporting Lab: [facility] [address] [facility] [address] Performing Lab: [facility] [address] [facility] [address] COMPREHE ALBUMIN 3.9 3.5 - 5.2 06/01 Specimen Type : PLASMA [place] NSIVE [MASS/VOLU /2021 No comment en tered. IS [facility] METABOLI ME] IN Ordering Provi cl: GENARO PARK SERUM OR Report Release d Date/Time: Dec 17, 2021 03:12 PM PANEL+MG PLASMA Reporting Lab: [facility] [address] [facility] [address] Performing Lab: [facility] [address] [facility] [address] COMPREHE BILIRUBIN. 0.4 0.2 - 1.2 06/01 Specimen T ype: PLASMA [place] NSIVE TOTAL /2021 No comment enter ed. IS [facility] METABOLI [MASS/VOLU Ordering Pr ovider: GENARO PARK ME] IN Report Released Date/Time: Dec 17, 2021 03:12 PM PANEL+MG SERUM OR Reporting Lab : [facility] PLASMA [address] [facility] [address] Performing Lab: [facility] [address] [facility] [address] COMPREHE MAGNESIUM 2.0 1.6 - 2.6 06/01 Specimen Ty pe: PLASMA [place] NSIVE [MASS/VOLU /2021 No comment en tered. IS [facility] METABOLI ME] IN Ordering Provi cl: GENARO PARK SERUM OR Report Release d Date/Time: Dec 17, 2021 03:12 PM PANEL+MG PLASMA Reporting Lab: [facility] [address] [facility] [address] Performing Lab: [facility] [address] [facility] [address] COMPREHE ANION GAP 7 5 - 15 06/01 Specimen Type : PLASMA [place] NSIVE IN SERUM /2021 No comment ente red. IS [facility] METABOLI OR PLASMA Ordering Pro vider: GENARO PARK Report Released Date/Time: Dec 17, 2021 03:12 PM PANEL+MG Reporting Lab: [facility] [address] [facility] [address] Performing Lab: [facility] [address] [facility] [address] COMPREHE ALKALINE 132 40 - 150 06/01 Specimen Type : PLASMA [place] NSIVE PHOSPHATAS /2021 No comment [facility] tered. [facility]I E Ordering Provi cl: GENARO PARK [ENZYMATIC Report Relea sed Date/Time: Dec 17, 2021 03:12 PM PANEL+MG ACTIVITY/V Reporting L ab: [facility] HCS OLUME] IN [address] [facility] [address] [facility] [address] SERUM OR Performing Lab : [facility] PLASMA [address] [facility] [address] COMPREHE ALANINE 23 <55 - 55 06/01 Specimen Type: PLASMA [place] NSIVE AMINOTRANS /2021 No comment en tered. [facility]I FERASE Ordering Provi cl: GENARO PARK [ENZYMATIC Report Relea sed Date/Time: Dec 17, 2021 03:12 PM PANEL+MG ACTIVITY/V Reporting L ab: [facility] OLUME] IN [facility] [address] SERUM OR Performing Lab : [facility] PLASMA [address] [facility] [address] COMPREHE ASPARTATE 18 <34 - 34 06/01 Specimen Typ e: PLASMA [place] NSIVE AMINOTRANS /2021 No comment en tered. IS [place] [facility] METABOLI FERASE Ordering Provi cl: GENARO PARK [ENZYMATIC Report Relea sed Date/Time: Dec 17, 2021 03:12 PM PANEL+MG ACTIVITY/V Reporting L ab: [facility] OLUME] IN [facility] [address] SERUM OR Performing Lab : [facility] PLASMA [address] [facility] [address] COMPREHE GLOMERULAR 88 60 06/01 Specimen Typ e: PLASMA [place] NSIVE FILTRATION No comment en tered. IS [place] [facility] METAB[place]I RATE/1.73 Ordering Pro vider: GENARO PARK SQ Report Released Date/Time: Dec 17, 2021 03:12 PM PANEL+MG M.PREDICTE Reporting L ab: [facility] D [VOLUME [facility] [address] RATE/AREA] Performing L ab: [facility] HCS IN SERUM, [facility] [address] PLASMA OR BLOOD BY CREATININE -BASED FORMULA (CKD-EPI) ELP/IMMF PROTEIN 6.9 6.0 - 8.3 06/01 Specimen Type : SERUM [place] IX,SERUM [MASS/VOLU /2021 Comment: Au tomated Differential Performed IS [facility] PANEL ME] IN Ordering Provid er: GENARO PARK SERUM OR Report Release d Date/Time: Dec 17, 2021 03:12 PM PLASMA Reporting Lab: [facility] [address] [facility] [address] Performing Lab: [facility] [address] [facility] [address] ELP/IMMF PROTEIN.MO 0.85 06/01 Specimen Typ e: SERUM [place] IX,SERUM NOCLONAL /2021 Comment: Auto mated Differential Performed IS [facility] PANEL [MASS/VOLU Ordering Pro vider: GENARO PARK [place]] IN Report Released Date/Time: Dec 17, 2021 03:12 PM SERUM OR Reporting Lab: [facility] PLASMA BY [facility] [address] ELECTROPHO Performing L ab: [facility] [address] [facility] [address] ELP/IMMF IMMUNOFIXA IgM 06/01 Specimen Typ e: SERUM [place] IX,SERUM TION FOR kappa Comment: Auto mated Differential Performed IS [facility] PANEL SERUM OR Ordering Provi cl: GENARO PARK PLASMA Report Released Date/Time: Dec 17, 2021 03:12 PM Reporting Lab: [facility] [address] [facility] [address] Performing Lab: [facility] [address] [facility] [address] ELP/IMMF ALBUMIN 3.53 3.66 - 10/04 L Specimen Type: SERUM [place] IX,SERUM [MASS/VOLU 4.78 /2021 Comment: Au tomated Differential Performed IS [facility] PANEL ME] IN Ordering Provid er: GENARO PARK SERUM OR Report Release d Date/Time: Dec 17, 2021 03:12 PM PLASMA BY Reporting Lab : [facility] ELECTROPHO [facility] [address] RESIS Performing Lab: [facility] [address] [place] [address] ELP/IMMF ALPHA 1 0.34 0.14 - 10 Specimen Type: SERUM [place] IX,SERUM GLOBULIN 0.38 /2021 Comment: Auto mated Differential Performed IS [facility] PANEL [MASS/VOLU Ordering Pro vider: GENARO PARK [place]] IN Report Released Date/Time: Dec 17, 2021 03:12 PM SERUM OR Reporting Lab: [facility] PLASMA BY [facility] [address] ELECTROPHO Performing L ab: [facility] RESIS [facility] [address] [place] [facility] [address] ELP/IMMF ALPHA 2 0.88 0.50 - 10/04 Specimen Type: SERUM [place] IX,SERUM GLOBULIN 0.90 /2021 Comment: Auto mated Differential Performed IS AL HCS PANEL [MASS/VOLU Ordering Pro vider: GENARO PARK] IN Report Released Date/Time: Dec 17, 2021 03:12 PM SERUM OR Reporting Lab: [facility] PLASMA BY [facility] [address] ELECTROPHO Performing L ab: [facility] RESIS [facility] [address] [place] [facility] [address] ELP/IMMF BETA 1 0.35 0.33 - 10/04 Specimen Type: [place]UM [place] IX,SERUM GLOBULIN 0.55 /2021 Comment: Auto mated Differential Performed IS [facility]CS PANEL [MASS/VOLU Ordering Pro vider: GENARO PARK] IN Report Released Date/Time: Dec 17, 2021 03:12 PM SERUM OR Reporting Lab: [facility] PLASMA BY [facility] [address] ELECTROPHO Performing L ab: [facility] RESIS [facility] [address] [place] [facility] [address] ELP/IMMF BETA 2 1.17 0.20 - 10/04 H Specimen Type: SERUM [place] IX,SERUM GLOBULIN 0.52 /2021 Comment: Auto mated Differential Performed IS AL [facility]CS PANEL [MASS/VOLU Ordering Pro vider: GENARO PARK] IN Report Released Date/Time: Dec 17, 2021 03:12 PM SERUM OR Reporting Lab: [facility] PLASMA BY [facility] [address] ELECTROPHO Performing L ab: [facility] RESIS [facility] [address] [place] [facility] [address] ELP/IMMF GAMMA 0.63 0.58 - 10/04 Specimen Type: SERUM [place] IX,SERUM GLOBULIN 1.72 Comment: Auto mated Differential Performed IS AL HCS PANEL [MASS/VOLU Ordering Pro vider: GENARO PARK] IN Report Released Date/Time: Dec 17, 2021 03:12 PM SERUM OR Reporting Lab: [facility] PLASMA BY [facility] [address] ELECTROPHO Performing L ab: [facility] RESIS [facility] [address] [place] [facility] [address] ELP/IMMF PROTEIN 6.9 6.0 - 8.3 06/01 Specimen Type : SERUM [place] IX,SERUM [MASS/VOLU /2021 Comment: Au tomated Differential Performed IS [facility] PANEL ME] IN Ordering Provid er: GENARO PARK SERUM OR Report Release d Date/Time: Dec 17, 2021 03:12 PM PLASMA Reporting Lab: [facility] [address] [place] [facility] [address] Performing Lab: [facility] [address] [place] [facility] [address] ELP/IMMF IMMUNOELEC MONOCLON 06/01 Specimen Ty pe: SERUM [place] IX,SERUM TROPHORESI AL Comment: Au tomated Differential Performed IS [facility] PANEL S FOR Ordering Provid er: GENARO PARK SERUM OR Report Release d Date/Time: Dec 17, 2021 03:12 PM PLASMA Reporting Lab: [facility] [address] [place] [facility] [address] Performing Lab: [facility] [address] [facility] [address] TOTAL IGM 1171.0 22.0 - 10/04 H Specimen Type: S [place] IMMUNOGL [MASS/VOLU 293.0 /2021 Comment: Au tomated Differential Performed IS [facility] OB ME] IN Ordering Provid er: GENARO PARK (IGA,IGG SERUM OR Report Releas ed Date/Time: Dec 17, 2021 03:12 PM ,IGM) PLASMA Reporting Lab: [facility] [address] [place] [facility] [address] Performing Lab: [facility] [address] [place] [facility] [address] TOTAL IGG 800.5 540.0 - 06/01 Specimen Type: S MGID[place]IA [place] IMMUNOGL [MASS/VOLU 1822.0 Comment: Au tomated Differential Performed IS [facility] OB ME] IN Ordering Provid er: GENARO PARK (IGA,IGG SERUM OR Report Releas ed Date/Time: Dec 17, 2021 03:12 PM ,IGM) PLASMA Reporting Lab: [facility] [address] [place] [facility] [address] Performing Lab: [facility] [place] [address] TOTAL IGA 114.2 63.0 - 10/04 Specimen Type: S [place] IMMUNOGL [MASS/VOLU 645.0 /2021 Comment: Au tomated Differential Performed IS [facility] OB ME] IN Ordering Provid er: GENARO PARK (IGA,IGG SERUM OR Report Releas ed Date/Time: Dec 17, 2021 03:12 PM ,IGM) PLASMA Reporting Lab: [facility] [place] [address] Performing Lab: [facility] [place] [address] BASIC CREATININE 0.8 0.7 - 1.2 03/31 Specimen Ty pe: PLASMA [place] METABOLI [MASS/VOLU /2021 No comment e ntered. IS [facility] C ME] IN Ordering Provid er: SHENA FITZPATRICK PANEL+MG SERUM OR Report Releas ed Date/Time: Mar 30, 2022 12:16 PM PLASMA Reporting Lab: [facility] [address] [place] [facility] [address] Performing Lab: [facility] [address] [place] [facility] [address] BASIC UREA 12 8 - 26 03/31 Specimen Type: P LASMA [place] METABOLI NITROGEN /2021 No comment ent ered. IS [facility] C [MASS/VOLU Ordering Pro vider: SHENA FITZPATRICK+MG ME] IN Report Release d Date/Time: Mar 30, 2022 12:16 PM SERUM OR Reporting Lab: [facility] PLASMA [address] [place] [facility] [address] Performing Lab: [facility] [address] [place] [facility] [address] BASIC GLUCOSE 95 74 - 100 03/31 Specimen Type: PLASMA [place] METABOLI [MASS/VOLU /2021 No comment e ntered. IS [facility] C ME] IN Ordering Provid er: SHENA FITZPATRICK PANEL+MG SERUM OR Report Releas ed Date/Time: Mar 30, 2022 12:16 PM PLASMA Reporting Lab: [facility] [address] [place] [facility] [address] Performing Lab: [facility] [address] [place] [facility] [address] BASIC SODIUM 141 136 - 145 03/31 Specimen Type: PLASMA [place] METABOLI [MOLES/VOL /2021 No comment e ntered. IS [facility] UME] IN Ordering Provid er: SHENA FITZPATRICK R PANEL+MG SERUM OR Report Releas ed Date/Time: Mar 30, 2022 12:16 PM PLASMA Reporting Lab: [facility] [address] [place] [facility] [address] Performing Lab: [facility] [address] [place] [facility] [address] BASIC POTASSIUM 4.0 3.5 - 5.1 03/31 Specimen Typ e: PLASMA [place] METABOLI [MOLES/VOL /2021 No comment e ntered. IS [facility] C UME] IN Ordering Provid er: SHENA FITZPATRICK R PANEL+MG SERUM OR Report Releas ed Date/Time: Mar 30, 2022 12:16 PM PLASMA Reporting Lab: [facility] [address] [place] [facility] [address] Performing Lab: [facility] [address] [facility] [address] BASIC CHLORIDE 112 98 - 107 03/31 H Specimen Type: PLASMA [place] METABOLI [MOLES/VOL /2021 No comment e ntered. IS [facility] C UME] IN Ordering Provid er: SHENA FITZPATRICK R PANEL+MG SERUM OR Report Releas ed Date/Time: Mar 30, 2022 12:16 PM PLASMA Reporting Lab: [facility] [address] [place] [facility] [address] Performing Lab: [facility] [address] [place] [facility] [address] BASIC CARBON 22 22 - 29 03/31 Specimen Type: P LASMA [place] METABOLI DIOXIDE, /2021 No comment ent ered. IS [facility] C TOTAL Ordering Provid er: SHENA FITZPATRICK R PANEL+MG [MOLES/VOL Report Rele ased Date/Time: Mar 30, 2022 12:16 PM UME] IN Reporting Lab: [facility] SERUM OR [address] Naheed [facility] [address] PLASMA Performing Lab: [facility] [address] [place] [facility] [address] BASIC CALCIUM 8.8 8.4 - 10.2 03/31 Specimen Type : PLASMA [place] METABOLI [MASS/VOLU /2021 No comment e ntered. IS [facility] C ME] IN Ordering Provid er: SHENA FITZPATRICK R PANEL+MG SERUM OR Report Releas ed Date/Time: Mar 30, 2022 12:16 PM PLASMA Reporting Lab: [facility] [address] [place] [address] Performing Lab: [facility] [address] [place] [address] BASIC MAGNESIUM 2.1 1.6 - 2.6 03/31 Specimen Typ e: PLASMA [place] METABOLI [MASS/VOLU /2021 No comment e ntered. IS [facility] C ME] IN Ordering Provid er: SHENA FITZPATRICK PANEL+MG SERUM OR Report Releas ed Date/Time: Mar 30, 2022 12:16 PM PLASMA Reporting Lab: [facility] [place] [address] Performing Lab: [facility] [place] [address] BASIC ANION GAP 7 5 - 15 03/31 Specimen Type: PLASMA [place] METABOLI IN SERUM /2021 No comment ent ered. IS [facility] C OR PLASMA Ordering Prov ider: SHENA FITZPATRICK PANEL+MG Report Release d Date/Time: Mar 30, 2022 12:16 PM Reporting Lab: [facility] [address] [place] [facility] [address] Performing Lab: [facility] [address] [place] [facility] [address] BASIC GLOMERULAR >90 60 03/31 Specimen Type : PLASMA [place] METABOLI FILTRATION /2021 No comment e ntered. IS [facility] C RATE/1.73 Ordering Prov ider: SHENA FITZPATRICK+MG SQ Report Release d Date/Time: Mar 30, 2022 12:16 PM CARMELITA Reporting La b: [facility] D [VOLUME ONE [employer] [facility] [address] RATE/AREA] Performing L ab: [facility] IN SERUM, [facility] [address] PLASMA OR BLOOD BY CREATININE -BASED FORMULA (CKD-EPI) CBC LEUKOCYTES 9.58 4.0 - 11.0 03/27 Specimen T ype: BLOOD [place] [#/VOLUME] /2021 Comment: Brianna olguin received in Lab at: [address] IS [facility] IN BLOOD Ordering Provi cl: BRIGHT LAMB BY Report Released Date/Time: Mar 26, 2022 02:41 PM AUTOMATED Reporting Lab : [facility] COUNT [address] [place] [facility] [address] Performing Lab: [facility] [address] [place] [facility] [address] CBC ERYTHROCYT 3.67 4.6 - 6.2 07/ L Specimen Ty pe: BLOOD [place] ES /2021 Comment: Specim en received in Lab at: [address] IS [facility] [#/VOLUME] Ordering Pro vider: BRIGHT LAMB IN BLOOD Report Release d Date/Time: Mar 26, 2022 02:41 PM BY Reporting Lab: [facility] AUTOMATED [facility] [address] COUNT Performing Lab: [facility] [address] [place] [address] CBC HEMOGLOBIN 11.4 13.5 - 0730 L Specimen Type : BLOOD [place] [MASS/VOLU 17.9 /2021 Comment: Spe renukaen received in Lab at: [address] IS [facility] ME] IN Ordering Provid er: BRIGHT LAMB BLOOD Report Released Date/Time: Mar 26, 2022 02:41 PM Reporting Lab: [facility] [place] [address] Performing Lab: [facility] [place] [address] CBC HEMATOCRIT 36.2 41 - 54 03/27 L Specimen Type : BLOOD [place] [VOLUME /2021 Comment: Specim en received in Lab at: [address] IS [facility] FRACTION] Ordering Prov ider: BRIGHT LAMB OF BLOOD Report Release d Date/Time: Mar 26, 2022 02:41 PM BY Reporting Lab: [facility] AUTOMATED [facility] [address] COUNT Performing Lab: [facility] [place] [address] CBC MCV 98.6 80 - 100 03/27 Specimen Type: BLOOD [place] [ENTITIC /2021 Comment: Speci men received in Lab at: [address] IS [facility] VOLUME] BY Ordering Pro vider: BRIGHT LAMB AUTOMATED Report Releas ed Date/Time: Mar 26, 2022 02:41 PM COUNT Reporting Lab: [facility] [address] [place] [address] Performing Lab: [facility] [place] [address] CBC MCH 31.1 27 - 33 03/27 Specimen Type: B LOOD [place] [ENTITIC /2021 Comment: Speci men received in Lab at: [address] [facility] MASS] BY Ordering Provi cl: BRIGHT LAMB AUTOMATED Report Releas ed Date/Time: Mar 26, 2022 02:41 PM COUNT Reporting Lab: [facility] [place] [address] Performing Lab: [facility] [address] [place] [address] CBC MCHC 31.5 32.0 - 03/27 L Specimen Type: B LOOD [place] [MASS/VOLU 37.5 /2021 Comment: Brianna olguin received in Lab at: [address] IS [facility] ME] BY Ordering Provid er: BRIGHT LAMB AUTOMATED Report Releas ed Date/Time: Mar 26, 2022 02:41 PM COUNT Reporting Lab: [facility] [place] [address] Performing Lab: [facility] [place] [address] CBC PLATELETS 600 150 - 400 03/27 H Specimen Typ e: BLOOD [place] [#/VOLUME] /2021 Comment: Brianna olguin received in Lab at: [address] [facility] IN BLOOD Ordering Provi cl: BRIGHT LAMB BY Report Released Date/Time: Mar 26, 2022 02:41 PM AUTOMATED Reporting Lab : [facility] COUNT [place] [address] Performing Lab: [facility] [place] [address] CBC PLATELET 9.1 7.4 - 10.4 03/27 Specimen Typ e: BLOOD [place] MEAN /2021 Comment: Specim en received in Lab at: [address] [facility] VOLUME Ordering Provid er: BRIGHT LAMB [ENTITIC Report Release d Date/Time: Mar 26, 2022 02:41 PM VOLUME] IN Reporting La b: [facility] BLOOD [place] [address] AUTOMATED Performing La b: [facility] [address] [place] [facility] [address] CBC ERYTHROCYT 14.4 11.5 - 03/27 Specimen Type : BLOOD [place] E 14.5 /2021 Comment: Specim en received in Lab at: [address] [facility] DISTRIBUTI Ordering Pro vider: BRIGHT LAMB ON WIDTH Report Release d Date/Time: Mar 26, 2022 02:41 PM [RATIO] BY Reporting La b: [facility] AUTOMATED [address] [facility] [address] COUNT Performing Lab: [facility] [place] [address] BASIC CREATININE 0.8 0.7 - 1.2 03/27 Specimen Ty pe: PLASMA [place] METABOLI [MASS/VOLU /2021 Comment: Sp ecimen received in Lab at: [address] IS [facility] C ME] IN Ordering Provid er: LAMB,BICKEY H PANEL+MG SERUM OR Report Releas ed Date/Time: Mar 26, 2022 02:41 PM PLASMA Reporting Lab: [facility] [place] [address] Performing Lab: [facility] [address] [place] [address] BASIC UREA 10 8 - 26 03/27 Specimen Type: P LASMA [place] METABOLI Comment: Spec imen received in Lab at: [address] IS [facility] C [MASS/VOLU Ordering Pro vider: LAMB,BICKEY H PANEL+MG ME] IN Report Release d Date/Time: Mar 26, 2022 02:41 PM SERUM OR Reporting Lab: [facility] PLASMA [place] [address] Performing Lab: [facility] [place] [address] BASIC GLUCOSE 108 74 - 100 07/30 H Specimen Type: PLASMA [place] METABOLI [MASS/VOLU /2021 Comment: Sp ecimen received in Lab at: [address] [facility] C ME] IN Ordering Provid er: LAMB,BICKEY H PANEL+MG SERUM OR Report Releas ed Date/Time: Mar 26, 2022 02:41 PM PLASMA Reporting Lab: [facility] [place] [address] Performing Lab: [facility] [place] [address] BASIC SODIUM 140 136 - 145 03/27 Specimen Type: PLASMA [place] METABOLI [MOLES/VOL /2021 Comment: Sp ecimen received in Lab at: [address] IS [facility] C UME] IN Ordering Provid er: LAMB,BICKEY H PANEL+MG SERUM OR Report Releas ed Date/Time: Mar 26, 2022 02:41 PM PLASMA Reporting Lab: [facility] [place] [address] Performing Lab: [facility] [place] [address] BASIC POTASSIUM 3.9 3.5 - 5.1 03/27 Specimen Typ e: PLASMA [place] METABOLI [MOLES/VOL /2021 Comment: Sp ecimen received in Lab at: [address] [facility] C UME] IN Ordering Provid er: LAMB,BICKEY H PANEL+MG SERUM OR Report Releas ed Date/Time: Mar 26, 2022 02:41 PM PLASMA Reporting Lab: [facility] [place] [address] Performing Lab: [facility] [address] [place] [address] BASIC CHLORIDE 109 98 - 107 07 H Specimen Type: PLASMA [place] METABOLI [MOLES/VOL /2021 Comment: Sp ecimen received in Lab at: [address] [facility] C UME] IN Ordering Provid er: LAMB,BICKEY H PANEL+MG SERUM OR Report Releas ed Date/Time: Mar 26, 2022 02:41 PM PLASMA Reporting Lab: [facility] [place] [address] Performing Lab: [facility] [place] [address] BASIC CARBON 23 22 - 29 03/27 Specimen Type: P LASMA [place] METABOLI DIOXIDE, /2021 Comment: Spec imen received in Lab at: [address] [facility] C TOTAL Ordering Provid er: SAV LAMBKEY H PANEL+MG [MOLES/VOL Report Rele ased Date/Time: Mar 26, 2022 02:41 PM UME] IN Reporting Lab: [facility] SERUM OR [facility] Naheed [facility] [address] PLASMA Performing Lab: [facility] [place] [address] BASIC CALCIUM 8.6 8.4 - 10.2 03/27 Specimen Type : PLASMA [place] METABOLI [MASS/VOLU /2021 Comment: Sp ecimen received in Lab at: [address] [facility] C ME] IN Ordering Provid er: LAMB,BICKEY H PANEL+MG SERUM OR Report Releas ed Date/Time: Mar 26, 2022 02:41 PM PLASMA Reporting Lab: [facility] [place] [address] Performing Lab: [facility] [address] [facility] [address] BASIC MAGNESIUM 2.2 1.6 - 2.6 03/27 Specimen Typ e: PLASMA [place] METABOLI [MASS/VOLU /2021 Comment: Sp ecimen received in Lab at: [address] [facility] C ME] IN Ordering Provid er: LAMBBICKEY H PANEL+MG SERUM OR Report Releas ed Date/Time: Mar 26, 2022 02:41 PM PLASMA Reporting Lab: [facility] [address] [place] [address] Performing Lab: [facility] [address] [place] [address] BASIC ANION GAP 8 5 - 15 03/27 Specimen Type: PLASMA [place] METABOLI IN SERUM /2021 Comment: Spec imen received in Lab at: [address] [facility] C OR PLASMA Ordering Prov ider: LAMBBICKEY H PANEL+MG Report Release d Date/Time: Mar 26, 2022 02:41 PM Reporting Lab: [facility] [address] [place] [address] Performing Lab: [facility] [address] [place] [address] BASIC GLOMERULAR >90 60 03/27 Specimen Type : PLASMA [place] METABOLI FILTRATION /2021 Comment: Sp ecimen received in Lab at: [address] [facility] C RATE/1.73 Ordering Prov ider: SAV LAMBKEY H PANEL+MG SQ Report Release d Date/Time: Mar 26, 2022 02:41 PM CARMELITA Reporting La b: [facility] D [VOLUME ONE [employer] [facility] [address] RATE/AREA] Performing L ab: [facility] IN SERUM, ONE [employer] [facility] [address] PLASMA OR BLOOD BY CREATININE -BASED FORMULA (CKD-EPI) BASIC CREATININE 0.8 0.7 - 1.2 03/26 Specimen Ty pe: PLASMA [place] METABOLI [MASS/VOLU /2021 No comment e ntered. IS [facility] C ME] IN Ordering Provid er: BRIGHT LAMB H PANEL+MG SERUM OR Report Releas ed Date/Time: Mar 26, 2022 02:34 PM PLASMA Reporting Lab: [facility] [address] [place] [address] Performing Lab: [facility] [address] [place] [facility] [address] BASIC UREA 9 8 - 26 03/26 Specimen Type: P LASMA [place] MET[place]OLI NITROGEN /2021 No comment ent ered. IS [facility] C [MASS/VOLU Ordering Pro vider: SAV LAMBKEY H PANEL+MG ME] IN Report Release d Date/Time: Mar 26, 2022 02:34 PM SERUM OR Reporting Lab: [facility] PLASMA [address] [place] [address] Performing Lab: [facility] [address] [place] [facility] [address] BASIC GLUCOSE 119 74 - 100 03/26 H Specimen Type: PLASMA [place] METABOLI [MASS/VOLU No comment e ntered. IS [facility] C ME] IN Ordering Provid er: LAMB,BICKEY H PANEL+MG SERUM OR Report Releas ed Date/Time: Mar 26, 2022 02:34 PM PLASMA Reporting Lab: [facility] [address] [place] [facility] [address] Performing Lab: [facility] [address] [place] [facility] [address] BASIC SODIUM 141 136 - 145 03/26 Specimen Type: PLASMA [place] MET[place]OL[place] [MOLES/VOL No comment e ntered. IS [facility] C UME] IN Ordering Provid er: LAMB,BICKEY H PANEL+MG SERUM OR Report Releas ed Date/Time: Mar 26, 2022 02:34 PM PLASMA Reporting Lab: [facility] [address] [place] [facility] [address] Performing Lab: [facility] [address] [place] [facility] [address] BASIC POTASSIUM 3.7 3.5 - 5.1 03/26 Specimen Typ e: PLASMA [place] METABOLI [MOLES/VOL No comment e ntered. IS [facility] C UME] IN Ordering Provid er: LAMB,BICKEY H PANEL+MG SERUM OR Report Releas ed Date/Time: Mar 26, 2022 02:34 PM PLASMA Reporting Lab: [facility] [address] [place] [facility] [address] Performing Lab: [facility] [address] [facility] [address] BASIC CHLORIDE 109 98 - 107 03/26 H Specimen Type: PLASMA [place] MET[place]OL[place] [MOLES/VOL No comment e ntered. IS [facility] C UME] IN Ordering Provid er: LAMB,BICKEY H PANEL+MG SERUM OR Report Releas ed Date/Time: Mar 26, 2022 02:34 PM PLASMA Reporting Lab: [facility] [address] [place] [facility] [address] Performing Lab: [facility] [address] [facility] [address] BASIC CARBON 22 22 - 29 03/26 Specimen Type: P LASMA [place] METABOLI DIOXIDE, /2021 No comment ent ered. IS [facility] C TOTAL Ordering Provid er: SAV LAMBKEY H PANEL+MG [MOLES/VOL Report Rele ased Date/Time: Mar 26, 2022 02:34 PM UME] IN Reporting Lab: [facility] SERUM OR [place] [address] PLASMA Performing Lab: [facility] [address] [place] [address] BASIC CALCIUM 8.7 8.4 - 10.2 03/26 Specimen Type : PLASMA [place] METABOLI [MASS/VOLU /2021 No comment e ntered. IS [facility] C ME] IN Ordering Provid er: LAMBBICKEY H PANEL+MG SERUM OR Report Releas ed Date/Time: Mar 26, 2022 02:34 PM PLASMA Reporting Lab: [facility] [address] [place] [address] Performing Lab: [facility] [address] [place] [address] BASIC MAGNESIUM 2.0 1.6 - 2.6 03/26 Specimen Typ e: PLASMA [place] METABOLI [MASS/VOLU /2021 No comment e ntered. IS [facility] C ME] IN Ordering Provid er: SAV LAMBKEY H PANEL+MG SERUM OR Report Releas ed Date/Time: Mar 26, 2022 02:34 PM PLASMA Reporting Lab: [facility] [place] [address] Performing Lab: [facility] [address] [place] [address] BASIC ANION GAP 10 5 - 15 03/26 Specimen Type: PLASMA [place] METABOLI IN SERUM /2021 No comment ent ered. IS [facility] C OR PLASMA Ordering Prov ider: LAMB,BICKEY H PANEL+MG Report Release d Date/Time: Mar 26, 2022 02:34 PM Reporting Lab: [facility] [address] [place] [address] Performing Lab: [facility] [address] [place] [address] BASIC GLOMERULAR >90 60 03/26 Specimen Type : PLASMA [place] METABOLI FILTRATION /2021 No comment e ntered. IS [facility] C RATE/1.73 Ordering Prov ider: LAMB,BICKEY H PANEL+MG SQ Report Release d Date/Time: Mar 26, 2022 02:34 PM M.PREDICTE Reporting La b: [facility] D [VOLUME [address] [facility] [address] [facility] [address] RATE/AREA] Performing L ab: [facility] IN SERUM, ONE [facility] [address] PLASMA OR BLOOD BY CREATININE -BASED FORMULA (CKD-EPI) CBC LEUKOCYTES 9.25 4.0 - 11.0 03/26 Specimen T ype: BLOOD [place] [#/VOLUME] /2021 No comment en tered. IS [facility] IN BLOOD Ordering Provi cl: BRIGHT LAMB BY Report Released Date/Time: Mar 26, 2022 02:34 PM AUTOMATED Reporting Lab : [facility] COUNT [place] [address] Performing Lab: [facility] [place] [address] CBC ERYTHROCYT 3.37 4.6 - 6.2 03/26 L Specimen Ty pe: BLOOD [place] ES /2021 No comment enter ed. IS [facility] [#/VOLUME] Ordering Pro vider: BRIGHT LAMB IN BLOOD Report Release d Date/Time: Mar 26, 2022 02:34 PM BY Reporting Lab: [facility] AUTOMATED [facility] [address] COUNT Performing Lab: [facility] [place] [address] CBC HEMOGLOBIN 10.5 13.5 - 03/26 L Specimen Type : BLOOD [place] [MASS/VOLU 17.9 No comment en tered. IS [facility] ME] IN Ordering Provid er: BRIGHT LAMB BLOOD Report Released Date/Time: Mar 26, 2022 02:34 PM Reporting Lab: [facility] [place] [address] Performing Lab: [facility] [address] [place] [facility] [address] CBC HEMATOCRIT 32.9 41 - 54 03/26 L Specimen Type : BLOOD [place] [VOLUME /2021 No comment enter ed. IS [facility] FRACTION] Ordering Prov ider: BRIGHT LAMB OF BLOOD Report Release d Date/Time: Mar 26, 2022 02:34 PM BY Reporting Lab: [facility] AUTOMATED ONE [facility] [address] COUNT Performing Lab: [facility] [place] [address] CBC MCV 97.6 80 - 100 03/26 Specimen Type: BLOOD [place] [ENTITIC /2021 No comment ente red. IS [facility] VOLUME] BY Ordering Pro vider: BRIGHT LAMB AUTOMATED Report Releas ed Date/Time: Mar 26, 2022 02:34 PM COUNT Reporting Lab: [facility] [address] [place] [address] Performing Lab: [facility] [address] [place] [address] CBC MCH 31.2 27 - 33 03/26 Specimen Type: B LOOD [place] [ENTITIC /2021 No comment ente red. IS [facility] MASS] BY Ordering Provi cl: BRIGHT LAMB AUTOMATED Report Releas ed Date/Time: Mar 26, 2022 02:34 PM COUNT Reporting Lab: [facility] [place] [address] Performing Lab: [facility] [address] [place] [address] CBC MCHC 31.9 32.0 - 03/26 L Specimen Type: B LOOD [place] [MASS/VOLU 37.5 /2021 No comment en tered. IS [facility] ME] BY Ordering Provid er: BRIGHT LAMB AUTOMATED Report Releas ed Date/Time: Mar 26, 2022 02:34 PM COUNT Reporting Lab: [facility] [place] [address] Performing Lab: [facility] [place] [address] CBC PLATELETS 569 150 - 400 03/26 H Specimen Typ e: BLOOD [place] [#/VOLUME] /2021 No comment en tered. IS [facility] IN BLOOD Ordering Provi cl: BRIGHT LAMB BY Report Released Date/Time: Mar 26, 2022 02:34 PM AUTOMATED Reporting Lab : [facility] COUNT [place] [address] Performing Lab: [facility] [place] [address] CBC PLATELET 9.1 7.4 - 10.4 03/26 Specimen Typ e: BLOOD [place] MEAN /2021 No comment enter ed. IS [facility] VOLUME Ordering Provid er: BRIGHT LAMB [ENTITIC Report Release d Date/Time: Mar 26, 2022 02:34 PM VOLUME] IN Reporting La b: [facility] BLOOD BY ONE [facility] [place] [address] AUTOMATED Performing La b: [facility] COUNT [place] [address] CBC ERYTHROCYT 14.5 11.5 - 03/26 Specimen Type : BLOOD [place] E 14.5 No comment enter ed. IS [facility] DISTRIBUTI Ordering Pro vider: BRIGHT LAMB ON WIDTH Report Release d Date/Time: Mar 26, 2022 02:34 PM [RATIO] BY Reporting La b: [facility] AUTOMATED [facility] [address] COUNT Performing Lab: [facility] [address] [facility] [address] ASPERGIL GALACTOMAN 0.05 03/25 Specimen Typ e: SERUM [place] ADRIAN NAN AG /2021 Comment: REFERE NCE RANGE: <0.50 A negative result does not exclude invasive aspergillosis. Follow-up testing may be indicated for high- risk patients. An Index <0.50 is considered to be ne IS [facility] ANTIGEN, [UNITS/VOL gative. An I ndex >=0.50 is considered to be positive. A positive result for patients being treated with piperacillin-tazobactam and other beta-lactam antibiotics such as amoxicillin-clavulanate m EIA UME] IN ay be a false po sitive due to cross reactivity and should be viewed in conjunction with all clinical findings. Positive results with this assay has also been reported in patients infected with Penicilli SERUM SERUM OR um marneffei an d Cryptococcus. Test Performed by [facility], [facility] [facility], [address] [place] [address] Kofi Bain M.D., Ph.D., Director of Laboratories , CLIA [id number] PLASMA BY Ordering Prov ider: NINA PENA IMMUNOASSA Report Relea sed Date/Time: Mar 25, 2022 09:23 AM Y Reporting Lab: [facility] [address] [facility] [address] [place] [facility] [address] Performing Lab: [address] [employer] Not 03/25 Specimen Typ e: SERUM [place] ADRIAN NAN AG Detected /2021 Comment: REFER ENCE RANGE: <0.50 A negative result does not exclude invasive aspergillosis. Follow-up testing may be indicated for high-risk patients. An Index <0.50 is considered to be ne IS [facility] ANTIGEN, [PRESENCE] gative. An I ndex >=0.50 is considered to be positive. A positive result for patients being treated with piperacillin-tazobactam and other beta-lactam antibiotics such as amoxicillin-clavulanate m EIA IN SERUM ay be a false p ositive due to cross reactivity and should be viewed in conjunction with all clinical findings. Positive results with this assay has also been reported in patients infected with Penicilli SERUM OR PLASMA um marneffei a nd Cryptococcus. Test Performed by [facility], [employer] [facility], [address] [place] [address] Kofi Bain M.D., Ph.D., Director of Laboratories , CLIA [id number] BY Ordering Provid er: NINA PENA IMMUNOASSA Report Relea sed Date/Time: Mar 25, 2022 09:23 AM Y Reporting Lab: [facility] [address] [place] [facility] [address] Performing Lab: [address] Vital Signs Combined list of inpatient and outpatient Vital Signs from Department of Defense and Veterans Affairs, ranging from 12 months to all on record, depending upon the facility. Vital Sign Value Date Comments Source SYSTOLIC BLOOD PRESSURE 112 06/01/2022 14:17:00 [facility] DIASTOLIC BLOOD PRESSURE 68 06/01/2022 14:17:00 [facility] PULSE OXIMETRY 97% 06/01/2022 14:17:00 [facility] WEIGHT 173 06/01/2022 14:17:00 [facility] BMI 25kg/m2 06/01/2022 14:17:00 [facility] PAIN 9 06/01/2022 14:17:00 [facility] TEMPERATURE 97.1 06/01/2022 14:17:00 [facility] PULSE 76 06/01/2022 14:17:00 [facility] RESPIRATION 16 06/01/2022 14:17:00 [facility] SYSTOLIC BLOOD PRESSURE 119 05/11/2022 14:09:47 [facility] DIASTOLIC BLOOD PRESSURE 71 05/11/2022 14:09:47 [facility] PULSE OXIMETRY 96% 05/11/2022 14:09:47 [facility] PAIN 0 05/11/2022 14:09:47 [facility] TEMPERATURE 98.4 05/11/2022 14:09:47 [facility] PULSE 81 05/11/2022 14:09:47 [facility] RESPIRATION 16 05/11/2022 14:09:47 [facility] SYSTOLIC BLOOD PRESSURE 122 04/26/2022 19:08:00 [facility] DIASTOLIC BLOOD PRESSURE 62 04/26/2022 19:08:00 [facility] PULSE OXIMETRY 97% 04/26/2022 19:08:00 [facility] PAIN 4 04/26/2022 19:08:00 [facility] PULSE 96 04/26/2022 19:08:00 [facility] RESPIRATION 16 04/26/2022 19:08:00 [facility] SYSTOLIC BLOOD PRESSURE 152 03/31/2022 07:55:00 [facility] DIASTOLIC BLOOD PRESSURE 71 03/31/2022 07:55:00 [facility] PULSE OXIMETRY 94% 03/31/2022 07:55:00 [facility] TEMPERATURE 98.0 03/31/2022 07:55:00 [facility] PULSE 76 03/31/2022 07:55:00 [facility] SYSTOLIC BLOOD PRESSURE 109 03/30/2022 07:37:00 [facility] DIASTOLIC BLOOD PRESSURE 62 03/30/2022 07:37:00 [facility] PULSE OXIMETRY 91% 03/30/2022 07:37:00 [facility] PAIN 0 03/30/2022 07:37:00 [facility] TEMPERATURE 97.7 03/30/2022 07:37:00 [facility] PULSE 71 03/30/2022 07:37:00 [facility] RESPIRATION 16 03/30/2022 07:37:00 [facility] Encounters Combined list of: 1) Encounters from Department of Veterans Affairs facilities going back up to the last 18 months. 2) Encounters from the Department of Defense facilities going back up to 280 months. Location Location Encounter Encounter Reason Attending ADM DC Stat us Disposition Source Details Type Number For Provider [place] [address]-9 RHETT Bustamante 12/09 [place] 30 MINUTES [id number] is: [place] ICD-10- HCS CM F43.21 Adjustm ent disorde r with depress ed mood
with Provide r Comment s: Adjustm ent Disorde r with depress ed mood INJ Diagnos BEATRIZ,SE 12/17 [place] PERFLUTREN [id number] is: [facility] H[facility] MICROS,ML CM R74.8 Abnorma l levels of other serum enzymes
Provide r Comment s: Abnorma l Levels of other Serum Enzymes OFFICE O/P Diagnos Donald HONG 12/17 [place] EST HI [id number] is: OHN D [facility] 40-54 [place] ICD-10- HCS CM R93.1 Abnorma l finding s on dx imaging of heart and cor circ
with Provide r Comment s: Abnorma l Finding s on Diagnos tic Imaging of Heart and Coronar [place] [address]-5 RHETT Bustamante 12/17 [place] 45 MINUTES [id number] is: [place] [facility] [place] ICD-10- H[facility] CM F43.23 Adjustm ent disorde r with mixed anxiety and depress ed mood
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
with Provide r Comment s: Bilater al primary osteoar thritis of knee Outpatient 75555-961 05/10 [place] Encounter [id number] [facility] 76776-3 05/ [place] Encounter [id number] /2020 [facility] Outpatient Diagnos SHAABAN,SH 01/07 [place] Encounter [id number] is: ERIF G [facility] ICD-10- HCS CM R91.1 Solitar y pulmona ry nodule< br/>wit h Provide r Comment s: Solitar y pulmona ry nodule (SCT 9577459 05) Outpatient 92359-1/ [place] En[place] [id number] [facility] 05 [place] En[place] [id number] /2020 [place] [address]61 Diagnos RHETT JESSICA 01/15 [place] 30 MINUTES [id number] is: Y [facility] ICD-10- HCS CM F43.23 Adjustm ent disorde r with mixed anxiety and depress ed mood
with Provide r Comment s: Adjustm ent Disorde r with mixed Anxiety and depress ed mood Outpatient Diagnos OBINNA,E 01/22 [place] Encounter [id number] is: MANUEL [place] ICD-10- HCS CM F32.4 Major depress v disorde r, single episode , in partial remis<b r/>with Provide r Comment s: Depress ion (SCT 1993136 7) Outpatient 58406-4 05 [place] En[place] [id number] [facility] [place] [address]-4.61 Diagnos RHETT JESSICA 02/12 [place] 30 MINUTES [id number] is: Y [facility] ICD-10- HCS CM F43.23 Adjustm ent disorde r with mixed anxiety and depress ed mood
with Provide r Comment s: Adjustm ent Disorde r with mixed Anxiety and depress ed mood Outpatient 36788-9.61 02/12 [place] Encounter [id number] /2020 IS [facility] MEDICAL 87978-5 Diagnos TO QUISPE 02/18 [place] NUTRITION [id number] is: EN K [facility] INDIV IN ICD-10- HCS CM Z71.3 Dietary claims counsel ing and surveil rosi<b r/>with Provide r Comment s: Dietary [place] [address]-3 Diagnos MERCEDES, 02/23 [place] DIG [id number] is: BURAK K [facility] ASSMT&MGMT ICD-10- HCS 5-10 CM E46 Unspeci fied protein -calori e malnutr ition<b r/>with Provide r Comment s: Malnutr ition of moderat e degree (Fan: 60% to less than 75% of standar d weight) (SCT 9606084 3) PRO 39180-6 Diagnos Rylie TAVAREZ 02/23 [place] PHONE CALL [phone] is: SAVANNA R [facility] 5-10 MIN ICD-10- HCS CM Z71.89 Other specifi ed claims counsel ing<br/ >with Provide r Comment s: Other specifi ed claims counsel ing TOPICAL 88099-0 Diagnos EGGEBRAATE 02/27 [place] CARIES [id number] is: BHUMI Mazariegos T /2020 [facility] [place] ICD-10- HCS CM K02.52 Dental caries on pit and fissure surfc penetra t into dentin< br/>wit h Provide r Comment s: Dental caries on pit and fissure [place] [address]-4.61 Diagnos APARICIO- 02/27 [place] PHARM ADDL [id number] is: ART,RACHEL /2020 [facility] 15 MIN ICD-10- RACHANA HCS CM R13.10 Dysphag ia, 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
with Provide r Comment s: Dysphag ia ([facility] [id number] 0) Outpatient 29053-8.61 03/03 [place] Encounter [id number] /2020 [facility] OFFICE O/P 29921-0.61 Diagnos RADHA,BRADL 03/06 [place] EST MOD [id number] is: EY A [facility] 30-39 MIN ICD-10- HCS CM R06.00 Dyspnea , 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
with Provide r Comment s: Dyspnea Outpatient 92687-1.61 03/12 [place] Encounter [id number] /2020 [facility] Outpatient 48811-7.61 OBINNA,E 03/12 [place] Encounter [id number] MANUEL [facility] Outpatient 11501-9.61 03/26 [place] Encounter [id number] [facility] MED 13595-4.61 Diagnos LONG,RAUL 03/27 [place] NUTRITION [id number] is: [place] N [facility] INDIV ICD-10- HCS SUBSEQ CM Z71.3 Dietary claims counsel ing and surveil rosi<b r/>with Provide r Comment s: Dietary claims counsel ing and surveil rosi Outpatient 53009-7.61 03/30 [place] Encounter [id number] [facility] OFFICE O/P 03951-3.61 Diagnos OBINNA,E 04/03 [place] EST LOW [id number] is: MANUEL [facility] 20-29 MIN ICD-10- HCS CM F32.4 Major depress v disorde r, single episode , in partial remis<b r/>with Provide r Comment s: Depress ion ([facility] [id number] 7) HC PRO 83265-0.61 Diagnos LEMUS,LIZBET C 04/05 [place] PHONE CALL [id number] is: [facility] 5-10 MIN ICD-10- HCS CM Z71.89 Other specifi ed claims counsel ing<br/ >with Provide r Comment s: Other specifi ed claims counsel ing Outpatient 66945-5.61 04/06 [place] Encounter [id number] /2021 [facility] Outpatient 44388-2.61 04/08 [place] Encounter [id number] [facility] EMERGENCY 33763-2.61 Diagnos CODY FITZPATRICK 04/09 [place] DEPT VISIT [id number] is: LITO VIEIRA [facility] ICD-10- HCS CM M54.5 Low back pain
with Provide r Comment s: Low Back Pain Outpatient 72008-961 Diagnos GOGO DUVAL 04/13 [place] Encounter [id number] is: [place] [facility] ICD-10- HCS CM R26.9 Unspeci fied abnorma lities of gait and mobilit y
w ith Provide r Comment s: Unspeci fied Abnorma lities of Gait and Mobilit y Outpatient 94577-2.61 04/14 [place] Encounter [id number] [facility] Outpatient 86252-0.61 04/14 [place] Encounter [id number] /2020 [facility] Outpatient 21756-5.61 RUISANDY FORRESTER 04/20 [place] Encounter [id number] E V [facility] Outpatient 57237-0.61 04/22 [place] Encounter [id number] /2021 [facility] Outpatient 79832-1.61 04/29 [place] Encounter [id number] /2020 [facility] ELECTROCAR 17703-8.61 Diagnos FARIDAROSEANNE 04/29 [place] DIOGRAM [id number] is: BRODY,Y S /2020 [facility] COMPLETE ICD-10- HCS CM Z13.6 Encount er for screeni ng for cardiov ascular disorde rs
with Provide r Comment s: Encount er for Screeni ng for Cardiov ascular Disorde rs Outpatient 43083-9.61 04/29 [place] [facility] [id number] [facility] 97742-3.61 04/29 [place] Encounter [id number] [facility] Outpatient 14480-2.61 04/29 [place] Encounter [id number] /2020 [facility] Outpatient 94027-6.61 04/29 [place] Encounter [id number] /2020 [facility] Outpatient 12374-1.61 04/29 [place] Encounter [id number] /2020 [facility] OFFICE O/P 75098-2.61 Diagnos FORREST,R 04/29 [place] NEW SF [id number] is: CHRISSMDN A [facility] 15-29 MIN ICD-10- HCS CM R06.00 Dyspnea , 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
with Provide r Comment s: Dyspnea MOD SED 98168-9.61 Diagnos FORREST,R 04/29 [place] SAME [id number] is: CHRISSN A [facility] PHYS/QHP ICD-10- HCS 5/>YRS CM R06.00 Dyspnea , 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
with Provide r Comment s: Dyspnea , 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 ADM 85835-5.61 Diagnos DESLAURIER 05/01 [place] SARSCOV2 [id number] is: S,JAROD /2020 [facility] VAC AD26 ICD-10- ANDREW HCS .5ML CM Z23 Encount er for immuniz ation<b r/>with Provide r Comment s: Encount er for Immuniz ation Outpatient 49216-2.61 05/07 [place] Encounter [id number] /2020 [facility] Outpatient 81287-0.61 05/15 [place] Encounter [id number] /2020 [facility] Outpatient 13015-9.61 05/19 [place] Encounter [id number] /2020 [facility] Outpatient 27654-2.61 05/20 [place] Encounter [id number] /2020 [facility] Outpatient 72183-4.61 05/26 [place] Encounter [id number] /2020 [facility] Outpatient 70863-2.61 05/28 [place] Encounter [id number] /2020 [facility] Outpatient 85296-8.61 Diagnos JAENICKE,C 06/01 [place] Encounter [id number] is: EV [facility] ICD-10- HCS CM 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, 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 Outpatient 31614-0.61 07/08 [place] Encounter [id number] /2020 [facility] Outpatient 09950-6.61 07/10 [place] Encounter [id number] /2020 [facility] Outpatient 30917-0.61 08/17 [place] Encounter [id number] /2020 [facility] Outpatient 21486-1.61 08/17 [place] Encounter [id number] /2020 [facility] Outpatient 27597-8.61 08/18 [place] Encounter [id number] /2020 [facility] Outpatient 09889-2.61 SYSTEM,CIS 08/27 [place] Encounter [id number] -AR [facility] Outpatient 39083-561 SYSTEM,CIS 08/27 [place] Encounter [id number] -ARK [facility] Outpatient 20806-6.61 08/27 [place] Encounter [id number] [facility] EMERGENCY 97803-0 Diagnos LORENZO GARCIA 08/27 [place] DEPT VISIT [id number] is: Y A [facility] ICD-10- [facility] CM R10.30 Lower abdomin al pain, 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
with Provide r Comment s: Lower Abdomin al Pain, 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 Outpatient 66058-8.61 08/31 [place] Encounter [id number] [facility] RESIN 4/> 70805-3.61 Diagnos EGGEBRAATE 08/31 [place] SURF OR W [id number] is: NBHUMI T /2021 [facility] ICD-10- HCS CM K02.52 Dental caries on pit and fissure surfc penetra t into dentin< br/>wit h Provide r Comment s: Dental caries on pit and fissure surface penetra ting into dentin Outpatient 69252-9 Diagnos ANITA ROLDANN 09/02 [place] Encounter [id number] is: IFER [facility] ICD-10- [facility] CM C34.31 Maligna nt neoplas m of lower lobe, right bronchu s or lung
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<br/ >with Provide r Comment s: Monoclo nal gammopa thy of uncerta in tapan garcia (SCT [id number]) Outpatient 80752-1.61 02/08 [place] Encounter [id number] /2021 [facility] 96388-6.61 / [place] En[place] [id number] /2021 [facility] 63396-4.61 / [place] En[place] [id number] /2021 [facility] Outpatient 59734-6.61 / [place] En[place] [id number] /2021 [facility] INTRAORAL 28144-9.61 Diagnos EGGEBRAATE 10/28 [place] PERIAPICAL [id number] is: NBHUMI T /2021 [facility] ICD-10- HCS CM K02.52 Dental caries on pit and fissure surfc penetra t into dentin< br/>wit h Provide r Comment s: Dental caries on pit and fissure surface penetra ting into dentin Outpatient 30546-8.61 03/04 [place] Encounter [id number] /2021 [facility] Outpatient 39591-6.61 / [place] En[place] [id number] /[facility] [facility] Outpatient 95040-3.61 / [place] En[place] [id number] /2021 [facility] Outpatient 65551-9.61 / [place] Encounter [id number] /2021 [facility] EMERGENCY 80325-7.61 Diagnos CARCORA,YA 11/10 [place] DEPT VISIT [id number] is: SER P /2021 [facility] ICD-10- HCS CM W19.XXX A Unspeci fied fall, initial encount er
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
wi th Provide r Comment s: Atheros clerosi s of [place] Arterie s of right Leg with Ulcerat ion of Heel and Midfoot Outpatient 37386-8.61 11/12 [place] Encounter [id number] /[facility]21 [facility] Out[facility] 68300-8.61 11/24 [place] Encounter [id number] /2021 [facility] ELECTROCAR 30794-8.61 Diagnos HUBROLANDA,SCO 11/27 [place] DIOGRAM [id number] is: TT A [facility] COMPLETE ICD-10- HCS CM Z13.6 Encount er for screeni ng for cardiov ascular disorde rs
with Provide r Comment s: Encount er for Screeni ng for Cardiov ascular Disorde rs Outpatient 78253-1.61 11/27 [place] Encounter [id number] /[facility]21 [facility] Out[facility] 10968-1.61 12/10 [place] Encounter [id number] /2021 [facility] Outpatient 99138-4.61 12/11 [place] Encounter [id number] /2021 [facility] HCS Outpatient 72956-8.61 SYSTEM,CIS 12/12 [place] En[place] [id number] -[place] [facility] Outpatient 24633-1.61 SYSTEM,CIS 12/12 [place] Encounter [id number] -[place] [facility] HC PRO 68100-0.61 Diagnos ERICK,YV 12/12 [place] PHONE CALL [id number] is: [place]NE [place] [facility] [place] 11-20 [place] ICD-10- HCS CM Z71.89 Other specifi ed claims counsel ing<br/ >with Provide r Comment s: Other specifi ed claims counsel ing EMERGENCY 83298-8.61 Diagnos JO ANN,AIM 12/12 [place] DEPT VISIT [id number] is: EE [facility] ICD-10- HCS CM L03.90 Celluli tis, 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
with Provide r Comment s: Celluli tis, 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 Outpatient 74967-3.61 SYSTEM,CIS 12/13 [place] Encounter [id number] -[place] [facility] Outpatient 13221-7 Diagnos ANGEL ROLDAN 12/17 [place] Encounter [id number] is: IFER [facility] ICD-10- HCS CM C34.31 Maligna nt neoplas m of lower lobe, right bronchu s or lung
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
with Provide r Comment s: Celluli tis, 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 Outpatient 17632-9.61 12/30 [place] Encounter [id number] [facility] Outpatient 17375-2.61 SYSTEM,CIS 01/07 [place] Encounter [id number] -ARK [facility] Outpatient 87168-4 SYSTEM,CIS 01/07 [place] Encounter [id number] -ARK [facility] EMERGENCY 88897-6.61 Diagnos CHARLIE CRANE 01/07 [place] DEPT VISIT 8.85104751 is: RICARDO A /2021 [place] [facility] [place] ICD-10- HCS CM I96 Gangren e, not elsewhe re classif ied<br/ >with Provide r Comment s: Gangren e, not elsewhe re classif ied Outpatient 16237-3.61 01/07 [place] Encounter [id number] [facility] Outpatient 57781-5.61 SYSTEM,CIS 01/07 [place] Encounter [id number] -AR [facility] EMERGENCY 13025-3.61 Diagnos SE JASON 01/07 [place] DEPT VISIT [id number] is: MARISOL [facility] ICD-10- [facility] CM M86.9 Osteomy elitis, 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
with Provide r Comment s: Osteomy elitis, 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 Inpatient 79040-9.61 Admit POWELLGODWIN 01/07 01/09 Discha [place]ge [place] Encounter [id number] Reason: KO K /2021 from [facility] RT FOOT inpatient [facility] CELLULI treatment TIS<br/ against > 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 [id number] is: MARC N /2021 [facility] 15 MIN ICD-10- HCS CM Z51.81 Encount er for therape utic drug level monitor ing<br/ >with Provide r Comment s: Encount er for therape utic drug level monitor ing Inpatient 17260-6.61 SYSTEM,CIS 01/08 01/08 [place] Encounter [id number] -ARK /2021 [facility] INPATIENT 25498-9.61 Diagnos RAMPMAYANKREI 01/08 01/08 [place] CONSULTAT[place] [id number] is: CAMELIA IRIZARRY /2021 [facility] ON ICD-10- W C [facility] CM I96 Gangren e, not elsewhe re classif ied<br/ >with Provide r Comment s: Gangren e, not elsewhe re classif ied Inpatient 54914-9.61 01/08 [place] Encounter [id number] /2022 [facility] Inpatient 64888-5.61 SYSTEM,CIS 01/08 01/08 [place] Encounter [id number] -ARK /2021 [facility] Inpatient 96215-2.61 SYSTEM,CIS 01/09 01/09 [place] Encounter [id number] -ARK /2021 [facility] Inpatient 46199-7.61 SYSTEM,CIS 01/09 01/09 [place] Encounter [id number] -ARK /2021 [facility] Inpatient 49986-5.61 01/09 01/09 [place] Encounter [id number] /2021 [facility] Inpatient 95765-1.61 01/09 01/09 [place] Encounter [id number] /2021 [facility] HC PRO 48873-8.61 Diagnos ERICK,YV 01/10 [place] PHONE CALL [id number] is: [facility] [facility] [facility] 5-10 MIN ICD-10- HCS CM Z71.89 Other specifi ed claims counsel ing<br/ >with Provide r Comment s: Other specifi ed claims counsel ing EMERGENCY 58959-9.61 Diagnos JELLY,GRETEL 01/10 [place] DEPT VISIT [id number] is: HONY R /2021 [facility] ICD-10- HCS CM F32.4 Major depress v disorde r, single episode , in partial remis<b r/>with Provide r Comment s: Depress ion (SCT 9944048 7) Outpatient 26903-5.61 01/11 [place] Encounter [id number] /2021 [facility] Outpatient 63609-5.61 SYSTEM,CIS 01/11 [place] Encounter [id number] -AR [facility] Outpatient 86467-2.61 SYSTEM,CIS 01/11 [place] Encounter [id number] -[place] [facility] Inpatient 76506-7.61 Admit BRANDEN SANDOVAL 01/11 01/18 [place] Encounter [id number] Reason: CK A /[facility] L LIMB ISCHEMI A
Inpatient 40098-9.61 Admit BRANDEN SANDOVAL 01/11 [place] Encounter [id number] Reason: CK A [facility] LIMB ISCHEMI A
Inpatient 86635-0.61 Admit ODALISBRANDEN DILLON 01/11 [place] Encounter [id number] Reason: CK A [facility] LIMB ISCHEMI A
FOOT/TOES 27636-1.61 Admit BRANDEN SANDOVAL 01/11 01/18 [place] SURGERY [id number] Reason: CK A /2021 [facility] PROCEDURE [facility] HCS L LIMB ISCHEMI A
Inpatient 45140-8.61 01/11 [place] Encounter [id number] /2021 [facility] Inpatient 20608-3.61 SYSTEM,CIS 01/11 01/11 [place] Encounter [id number] -ARK /2021 [facility] Inpatient 08968-6.61 01/11 01/11 [place] Encounter [id number] /2021 [facility] Inpatient 60876-1.61 01/11 01/11 [place] Encounter [id number] /2021 [facility] Inpatient 77499-1.61 SYSTEM,CIS 01/12 01/12 [place] Encounter [id number] -ARK /2021 [facility] Inpatient 38815-4.61 01/12 01/12 [place] Encounter [id number] /2021 [facility] OFFICE O/P 51358-8.61 Diagnos CHINNADURA 01/12 01/12 [facility] [place] [id number] is: LAST Vaughan A /2021 [facility] 40-54 MIN ICD-10- HCS CM F32.4 Major depress v disorde r, single episode , in partial remis<b r/>with Provide r Comment s: Depress ion ([facility] 8392317 7) SUBSEQUENT 44839-4.61 Diagnos RAMPETSREI 01/12 01/12 [facility] [id number] is: CAMELIA IRIZARRY /2021 [facility] C[facility] ICD-10- W C [facility] CM I96 Gangren e, not elsewhe re classif ied<br/ >with Provide r Comment s: Gangren e, not elsewhe re classif ied Inpatient 88491-7.61 01/12 01/12 [place] Encounter [id number] /2021 [facility] Inpatient 46978-9.61 01/12 01/12 [place] Encounter [id number] /2021 [facility] INPATIENT 50410-1.61 Diagnos KHARI BUTLER 01/12 01/12 [place] CONSULTAT[place] [id number] is: N /2021 [facility] ON ICD-10- HCS CM Z51.5 Encount er for palliat hong care
with Provide r Comment s: Encount er for Palliat hong Care Inpatient 31603-2.61 01/12 01/12 [place] Encounter [id number] /2021 [facility] Inpatient 07554-0.61 01/12 01/12 [place] Encounter [id number] /2021 [facility] Inpatient 78258-9.61 Diagnos GREENDAVID 01/12 01/15 [place] Encounter [id number] is: ICK L /2021 [facility] ICD-10- HCS CM I70.222 [place] arterie s of extremi ties w rest pain, left leg<br/ >with Provide r Comment s: Atheros clerosi s of [place] arterie s of extremi ties with rest pain, left leg SPECIAL 67484-7.61 Diagnos TOLLY,HIPOLITO 01/12 01/15 [place] ANESTHESIA [id number] is: N NÉSTOR /2021 [facility] SERVICE ICD-10- HCS CM I70.222 [place]cl [place] arterie s of extremi ties w rest pain, left leg<br/ >with Provide r Comment s: Athscl [place] arterie s of extremi ties w rest pain, left leg Inpatient 58206-6.61 01/12 01/12 [place] Encounter [id number] /2021 [facility] Inpatient 84979-5.61 SYSTEM,CIS 01/12 01/12 [place] Encounter [id number] -ARK /2021 [facility] SUBSEQUENT 56482-2.61 Diagnos TOLLY,HIPOLITO 01/12 01/12 [facility] [id number] is: N NÉSTOR /2021 [facility] ICD-10- HCS CM F32.4 Major depress v disorde r, single episode , in partial remis<b r/>with Provide r Comment s: Depress ion (SCT 8699888 7) INSERTION 73530-9.61 Diagnos HIPOLITO RECINOS 01/12 01/12 [place] CATHETER [id number] is: N NÉSTOR /2021 [facility] ARTERY ICD-10- HCS CM M54.16 Radicul opathy, lumbar region< br/>wit h Provide r Comment s: Lumbar radicul opathy (SCT 5649415 05) Inpatient 76480-8.61 SYSTEM,CIS 01/12 01/12 [place] Encounter [id number] -ARK /2021 [facility] Inpatient 20753-9.61 01/13 01/13 [place] Encounter [id number] /2021 [facility] Inpatient 13240-7.61 SYSTEM,CIS 01/13 01/13 [place] Encounter [id number] -ARK /2021 [facility] Inpatient 28478-8.61 01/13 01/13 [place] Encounter [id number] /2021 [facility] Inpatient 00205-0.61 01/13 01/13 [place] Encounter [id number] /2021 [facility] SUBSEQUENT 10327-1.61 Diagnos Torri TERRELL 01/13 01/14 [facility] [id number] is: APOORVA /2021 [facility] ICD-10- ROSAL[facility] HCS CM Z48.89 Encount er for other specifi ed surgica l afterca re
with Provide r Comment s: Post anesthe rocio afterca re Inpatient 86441-6.61 01/13 01/13 [place] Encounter [id number] /2021 [facility] Inpatient 61042-0.61 01/13 01/13 [place] Encounter [id number] /2021 [facility] SUBSEQUENT 95394-9.61 Diagnos [facility] 01/13 01/13 [facility] [id number] is: CAMELIA IRIZARRY /2021 [facility] CARE ICD-10- W C [facility] CM I73.9 Periphe ral vascula r disease , 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
with Provide r Comment s: Periphe ral vascula r disease , 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 Inpatient 58818-7.61 01/14 01/14 [place] Encounter [id number] /2021 [facility] Inpatient 04266-5.61 SYSTEM,CIS 01/14 01/14 [place] Encounter [id number] -ARK /2021 [facility] Inpatient 73124-4.61 SYSTEM,CIS 01/14 [place] Encounter [id number] -ARK /2021 [facility] Inpatient 54546-3.61 [facility] 01/14 01/14 [place] Encounter [id number] [facility] /2021 [facility] W C HCS Inpatient 90542-7.61 Diagnos [facility] 01/14 01/20 [place] Encounter [id number] is: CAMELIA IRIZARRY /2021 [facility] ICD-10- W C [facility] CM I96 Gangren e, not elsewhe re classif ied<br/ >with Provide r Comment s: Gangren e, not elsewhe re classif ied SPECIAL 80163-2.61 Diagnos SUSANA CASTROI 01/14 01/20 [place] ANESTHESIA [id number] is: N F /2021 [facility] SERVICE ICD-10- [facility] CM I96 Gangren e, not elsewhe re classif ied<br/ >with Provide r Comment s: Gangren e, not elsewhe re classif ied OFFICE O/P 37500-1.61 Diagnos ADOLFO,CO 01/14 01/14 [place] EST [place] [id number] is: NSTANDARIA L /2021 [facility] 10- MIN ICD-10- HCS CM M79.671 Pain in right foot
with Provide r Comment s: Pain in right Foot Inpatient 53208-6.61 LIBRA MENDEST 01/14 01/14 [place] Encounter [id number] T L /2021 [facility] Inpatient 73113-3.61 01/14 01/14 [place] Encounter [id number] /2021 [facility] Inpatient 74081-3.61 01/14 [place] Encounter [id number] /2021 [facility] Inpatient 65902-5.61 SYSTEM,CIS 01/15 01/15 [place] Encounter [id number] -ARK /2021 [facility] Inpatient 04681-3.61 01/15 01/15 [place] Encounter [id number] /2021 [facility] POSTOP 95711-6.61 Diagnos EKATERINA 01/15 01/15 [place] FOLLOW-UP [id number] is: CAMELIA IRIZARRY /2021 [facility] VISIT ICD-10- W C HCS CM 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
with Provide r Comment s: Acquire d absence of right foot OFFICE O/P 89877-5.61 Diagnos Donald ECHEVARRIA 01/15 01/15 [place] EST [id number] is: ZOYA Youngblood RN /2021 [facility] MINIMAL ICD-10- HCS PROB CM I77.9 Disorde r of arterie s and arterio les, 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
w ith Provide r Comment s: Other abnorma lities of gait and mobilit y Inpatient 28439-0.61 SYSTEM,CIS 01/16 01/16 [place] Encounter [id number] -ARK /2021 [facility] Inpatient 82257-2.61 01/16 01/16 [place] Encounter [id number] /2021 [facility] Inpatient 83606-5.61 01/16 01/16 [place] Encounter [id number] /2021 [facility] Inpatient 76868-9.61 SYSTEM,CIS 01/17 01/17 [place] Encounter [id number] -ARK /2021 [facility] Inpatient 82118-9.61 01/17 01/17 [place] Encounter [id number] /2021 [facility] Inpatient 98555-1.61 01/17 01/17 [place] Encounter [id number] /2021 [facility] Inpatient 80313-5.61 01/18 01/18 [place] Encounter [id number] /2021 [facility] Inpatient 22300-4.61 SYSTEM,CIS 01/18 01/18 [place] Encounter [id number] -ARK /2021 [facility] POSTOP 73512-9.61 Diagnos CALLYETSREI 01/18 01/18 [place] FOLLOW-UP [id number] is: CAMELIA IRIZARRY /2021 [facility] VIS[facility] ICD-10- W C HCS CM 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 L AMP<br/ > FOOT/TOES 61423-1.61 Admit FAWOLE,TAJ 01/18 03/12 Discha rge [place] SURGERY [id number] Reason: UDEEN O /[facility] PROC[facility]/P R inpatient [facility] TRANSME treatment to [facility] the Service L Connected AMP<br/ (OPT-SC) > rolls. 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, single episode , in partial remis<b r/>with Provide r Comment s: Depress ion ([facility] [id number] 7) SELF CARE 83835-2.61 Diagnos JEAN PIERRE,KA 01/19 01/20 [place] MNGMENT [id number] is: RLEE E /2021 [facility] TRAINING ICD-10- HCS CM Z73.6 Limitat ion of activit ies due to disabil ity<br/ >with Provide r Comment s: Limitat ion of Activit ies due to Disabil ity Inpatient 80422-4.61 01/19 01/19 [place] Encounter [id number] /2021 [facility] [address]-7.61 Diagnos VENESSAEMMANU 01/19 01/19 [place] 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 8.67695154 is: EL O /2021 [facility] ASSESSMENT ICD-10- HCS CM Z71.81 Spiritu al or religio us claims counsel ing<br/ >with Provide r Comment s: Spiritu al or religio us claims counsel ing Inpatient 16686-6.61 01/19 01/19 [place] Encounter [id number] /2021 [facility] Inpatient 19333-7.61 01/19 01/19 [place] Encounter [id number] /2021 [facility] Inpatient 46921-4.61 01/20 01/20 [place] Encounter [id number] /2021 [facility] POSTOP 45659-0.61 Diagnos EKATERINA 01/20 01/20 [place] FOLLOW-UP [id number] is: JUAN CCAMELIA /2021 [facility] VIS[facility] ICD-10- W C HCS CM 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
with Provide r Comment s: Acquire d absence [place] 00302-6.61 Diagnos STACYDUNCANFRANKI 01/20 01/20 [place] ASSMT/REAS [id number] is: DIAH D /2021 [facility] SESSMENT ICD-10- HCS CM Z51.89 Encount er for other specifi ed afterca re
with Provide r Comment s: Encount er for Other Specifi ed Afterca re Inpatient 21566-2.61 01/20 01/20 [place] Encounter [id number] /2021 [facility] ORAL 54288-3.61 Diagnos SILVESTRERYANNNimo 01/20 01/20 [place] FUNCTION 8.37727510 is: AN P /2021 [facility] THERAPY ICD-10- HCS CM R13.12 Dysphag ia, orophar yngeal phase<b r/>with Provide r Comment s: Dysphag ia, orophar yngeal phase Inpatient 74729-9.61 01/20 01/20 [place] Encounter [id number] /2021 [facility] Inpatient 81511-9.61 01/21 01/21 [place] Encounter [id number] /2021 [facility] Inpatient 42642-2.61 01/21 01/21 [place] Encounter [id number] /2021 [facility] THER IVNTJ 09328-3.61 Diagnos LUKAS GREENFIELD 01/21 01/25 [place] EA ADDL 15 [id number] is: RLEE E /2021 [facility] MIN ICD-10- HCS CM Z73.6 Limitat ion of activit ies due to disabil ity<br/ >with Provide r Comment s: Limitat ion of Activit ies due to Disabil ity Inpatient 70083-1.61 01/21 01/21 [place] Encounter [id number] /2021 [facility] Inpatient 28404-6.61 01/22 01/22 [place] Encounter [id number] /2021 [facility] PT EVAL 56657-1.61 Diagnos JORDON, 01/22 01/22 [place] MOD [id number] is: MAMADOU /2021 [facility] COMPLEX 30 ICD-10- HCS MIN CM R26.89 Other abnorma lities of gait and mobilit y
w ith Provide r Comment s: Other Abnorma lities of Gait and Mobilit y Inpatient 36317-1.61 01/22 01/22 [place] Encounter [id number] /2021 [facility] SELF CARE 64689-2.61 Diagnos LUKAS GREENFIELD 01/22 01/25 [place] MNGMENT [id number] is: RLEE E /2021 [facility] TRAINING ICD-10- HCS CM Z73.6 Limitat ion of activit ies due to disabil ity<br/ >with Provide r Comment s: Limitat ion of Activit ies due to Disabil ity Inpatient 11981-3.61 01/22 01/22 [place] Encounter [id number] /2021 [facility] Inpatient 03138-2.61 01/23 01/23 [place] Encounter [id number] /2021 [facility] Inpatient 89689-9.61 01/23 01/23 [place] Encounter [id number] /2021 [facility] Inpatient 08166-6.61 01/24 01/24 [place] Encounter [id number] /2021 [facility] Inpatient 45175-5.61 01/24 01/24 [place] Encounter [id number] /2021 [facility] Inpatient 72683-1.61 01/25 01/25 [place] Encounter [id number] /2021 [facility] Inpatient 98694-7.61 01/25 01/25 [place] Encounter [id number] /2021 [facility] Inpatient 52451-5.61 01/26 01/26 [place] Encounter [id number] /2021 [facility] Inpatient 45590-3.61 01/26 01/26 [place] Encounter [id number] /2021 [facility] THERAPEUTI 38312-6.61 Diagnos TO NIELSON 01/26 01/26 [place] C [id number] is: A NAVEED /2021 [facility] EXERCISES ICD-10- HCS CM Z73.6 Limitat ion of activit ies due to disabil ity<br/ >with Provide r Comment s: Limitat ion of Activit ies due to Disabil ity Inpatient 13927-7.61 01/26 01/26 [place] Encounter [id number] /2021 [facility] Inpatient 50902-4.61 01/27 01/27 [place] Encounter [id number] /2021 [facility] POSTOP 38324-8.61 Diagnos RAMPETSREI 01/27 01/27 [place] FOLLOW-UP [id number] is: CAMELIA IRIZARRY /2021 [facility] VISIT ICD-10- W C HCS CM 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
with Provide r Comment s: Acquire d absence of right foot Inpatient 08335-6.61 01/27 01/27 [facility] [facility] Encounter [id number] /2021 [facility] THERAPEUTI 91347-2.61 Diagnos TO NIELSON 01/28 01/28 [place] [id number] is: A NAVEED /2021 [facility] EXERCISES ICD-10- HCS CM R53.1 Weaknes s
w ith Provide r Comment s: Suly s THERAPEUTI 69077-0.61 Diagnos JOHN,AL 01/28 01/28 [place] [id number] is: PRISCILA Bennett /2021 [facility] EXERCISES ICD-10- HCS CM R26.89 Other abnorma lities of gait and mobilit y
w ith Provide r Comment s: Other abnorma lities of gait and mobilit y Inpatient 97578-6.61 01/28 01/28 [place] [facility] Encounter [id number] /[facility] Inpatient 34353-6.61 01/29 01/29 [place] [facility] Encounter [id number] /2021 [facility] Inpatient 38303-8.61 01/29 01/29 [place] [facility] Encounter [id number] /2021 [facility] S[facility]F CARE 77082-6.61 Diagnos REJIYairTO Akhtar 01/29 01/29 [place] MNGMENT [id number] is: A NAVEED /2021 [facility] TRAINING ICD-10- HCS CM R53.1 Weaknes s
w ith Provide r Comment s: Suly s SELF CARE 29447-4.61 Diagnos LETA ASIF 01/29 01/29 [place] MNGMENT [id number] is: /2021 [facility] TRAINING ICD-10- HCS CM R53.1 Weaknes s
w ith Provide r Comment s: Weaksharmila s CASE 75422-8.61 Diagnos CHIRCOP,AN 01/29 01/29 [place] MANAGEMENT [id number] is: AZALIA J /2021 [facility] ICD-10- [facility] CM F32.4 Major depress v disorde r, single episode , in partial remis<b r/>with Provide r Comment s: Depress ion (SCT [id number]) PSYCH 42429-2.61 Diagnos ALFONSO,KA 01/29 01/30 [place] [facility] [id number] is: THRYN A /2021 [facility] EVALU[facility] ICD-10- HCS CM F43.21 Adjustm ent disorde r with depress ed mood
with Provide r Comment s: Adjustm ent Disorde r with depress ed mood Inpatient 11809-5.61 0601/29 [place] [facility] Encounter [id number] /20[facility] Inpatient 53149-5.61 01/30 01/30 [place] [facility] Encounter [id number] /[facility] Inpatient 37140-6.61 01/30 01/30 [place] [facility] Encounter [id number] /2021 [facility] Inpatient 30045-2.61 01/31 01/31 [place] [facility] Encounter [id number] /2021 [facility] Inpatient 00132-9.61 01/31 01/31 [place] [facility] Encounter [id number] /[facility] Inpatient 89976-5.61 02/01 02/01 [place] [facility] Encounter [id number] /2021 [facility] THERAPEUTI 74167-1.61 Diagnos MALIKBRITTANYLETA 02/01 02/01 [place] [id number] is: /2021 [facility] ACTIVITIES ICD-10- HCS CM R53.1 Weaknes s
w ith Provide r Comment s: Weaknes s Inpatient 04790-7.61 02/01 02/01 [place] [facility] Encounter [id number] /[facility] Inpatient 82352-9.61 02/01 02/01 [place] [facility] Encounter [id number] /2021 [facility] Inpatient 70352-4.61 02/02 02/02 [place] [facility] Encounter [id number] /2021 [facility] THERAPEUTI 42096-8.61 Diagnos TO NIELSON 02/02 02/02 [place] [id number] is: A NAVEED /2021 [facility] EXERCISES ICD-10- HCS CM Z73.6 Limitat ion of activit ies due to disabil ity<br/ >with Provide r Comment s: Limitat ion of Activit ies due to Disabil ity Inpatient 02460-9.61 02/02 02/02 [place] [facility] Encounter [id number] /[facility] THERAPEUTI 52159-7.61 Diagnos YEFRILETA 02/02 02/02 [place] [id number] is: /2021 [facility] ACTIVITIES ICD-10- HCS CM R53.1 Weaknes s
w ith Provide r [place]: [place] [address]-9.61 Diagnos LUKAS ALFONSO 02/02 02/03 [place] 30 MINUTES [id number] is: THRYN A /2021 [place] ICD-10- HCS CM F43.21 Adjustm ent disorde r with depress ed mood
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 [id number] is: H /2021 [facility] TAP OUT OPERATOR ICD-10- HCS INDIVIDU CM Z71.81 Spiritu al or religio us claims counsel ing<br/ >with Provide r Comment s: Spiritu al or religio us claims counsel ing Inpatient 81844-0.61 02/02 02/02 [place] Encounter [id number] /2021 [facility] HCS Inpatient 77701-7.61 02/03 02/03 [place] Encounter [id number] /2021 [facility] HCS SELF CARE 90555-4.61 Diagnos TO NIELSON 02/03 02/03 [place] MNGMENT 8.23935621 is: A NAVEED /2021 [facility] TRAINING ICD-10- HCS CM Z73.6 Limitat ion of activit ies due to disabil ity<br/ >with Provide r Comment s: Limitat ion of Activit ies due to Disabil ity Inpatient 22884-3.61 02/03 02/03 [place] Encounter [id number] /2021 [facility] HCS THERAPEUTI 11624-5.61 Diagnos LETA ASIF 02/03 02/03 [place] C 8.18024499 is: /2021 [facility] [place] EXERCISES ICD-10- HCS CM R53.1 Weaknes s
w ith Provide r Comment s: Weaknes s Inpatient 21452-8.61 02/03 02/03 [place] Encounter [id number] /[facility] Inpatient 20473-2.61 02/04 02/04 [place] Encounter [id number] /2021 [facility] SELF CARE 11835-1.61 Diagnos TO NIELSON 02/04 02/04 [place] MNGMENT 8.27540167 is: A NAVEED /2021 [facility] TRAINING ICD-10- HCS CM Z73.6 Limitat ion of activit ies due to disabil ity<br/ >with Provide r Comment s: Limitat ion of Activit ies due to Disabil ity Inpatient 59929-3.61 02/04 02/04 [place] Encounter [id number] /2021 [facility] Inpatient 03551-5.61 Diagnos CHIRCOP,AN 02/04 02/05 [place] Encounter [id number] is: AZALIA J /2021 [place] ICD-10- HCS CM F32.4 Major depress v disorde r, single episode , in partial remis<b r/>with Provide r Comment s: Depress ion (SCT [id number] 7) POSTOP 14150-7.61 Diagnos RAMPETSREI 02/04 02/04 [place] FOLLOW-UP [id number] is: CAMELIA IRIZARRY /2021 [facility] [place] VISIT ICD-10- W C HCS CM 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
with Provide r Comment s: Acquire d absence of right foot Inpatient 02387-2.61 02/04 02/04 [place] Encounter [id number] /2021 [facility] Inpatient 44397-2.61 02/05 02/05 [place] Encounter [id number] /2021 [facility] SELF CARE 03230-3.61 Diagnos TO NIELSON 02/05 02/05 [place] MNGMENT [id number] is: A NAVEED /2021 OL[facility] Fischer A TRAINING ICD-10- HCS CM Z73.6 Limitat ion of activit ies due to disabil ity<br/ >with Provide r Comment s: Limitat ion of Activit ies due to Disabil ity Inpatient 50974-2.61 02/05 02/05 [place] Encounter [id number] /2021 [facility] THERAPEUTI 42056-4.61 Diagnos LETA ASIF 02/05 02/05 [place] C 8.26109804 is: /2021 [facility] EXERCISES ICD-10- HCS CM R53.1 Weaknes s
w ith Provide r Comment s: Weaknes s Inpatient 90670-4.61 02/05 02/05 [place] Encounter [id number] /2021 [facility] Inpatient 13178-2.61 02/06 02/06 [place] Encounter [id number] /2021 [facility] Inpatient 56594-3.61 02/06 02/06 [place] Encounter [id number] /2021 [facility] Inpatient 49853-1.61 02/06 02/06 [place] Encounter [id number] /2021 [facility] Inpatient 23378-5.61 02/07 02/07 [place] Encounter [id number] /2021 [facility] Inpatient 80117-2.61 02/07 02/07 [place] Encounter [id number] /2021 [facility] SELF CARE 52604-1.61 Diagnos XIANG PEREZ 02/07 02/07 [place] MNGMENT 8.41080960 is: A J /2021 [facility] TRAINING ICD-10- HCS CM Z73.6 Limitat ion of activit ies due to disabil ity<br/ >with Provide r Comment s: Limitat ion of activit ies due to disabil ity Inpatient 00298-9.61 02/07 02/07 [place] Encounter [id number] /2021 [facility] Inpatient 40673-8.61 02/08 02/08 [place] Encounter [id number] /[facility] In[facility] 36407-1.61 02/08 02/08 [place] Encounter [id number] /20[facility] Inpatient 40627-7.61 02/08 02/08 [place] Encounter [id number] /2021 [facility] Inpatient 17317-6.61 02/09 02/09 [place] Encounter [id number] /2021 [facility] Inpatient 77664-1.61 02/09 02/09 [place] Encounter [id number] /2021 [facility] THERAPEUTI 54835-9.61 Diagnos YEFRILETA 02/09 02/09 [place] [id number] is: /2021 [facility] ACTIVITIES ICD-10- HCS CM R53.1 Suly s
w ith Provide r Comment s: Weaknes s Inpatient 76339-8.61 02/09 02/09 [place] Encounter [id number] /2021 [facility] Inpatient 62502-3.61 02/09 02/09 [place] Encounter [id number] /2021 [facility] Inpatient 93789-6.61 02/10 02/10 [place] Encounter [id number] /2021 [facility] SELF CARE 84447-4.61 Diagnos KAYY ROWLEY 02/10 02/10 [place] MNGMENT 8.89105293 is: TG L /2021 [facility] [place] TRAINING ICD-10- HCS CM Z73.6 Limitat ion of activit ies due to disabil ity<br/ >with Provide r Comment s: Limitat ion of activit ies due to disabil ity Inpatient 51380-8.61 02/10 02/10 [place] Encounter [id number] /[facility] Inpatient 18971-4.61 02/10 02/10 [place] Encounter [id number] /2021 [facility] Inpatient 16476-3.61 02/11 02/11 [place] Encounter [id number] /2021 [facility] Inpatient 60719-3.61 02/11 02/11 [place] Encounter [id number] /2021 [facility] POSTOP 25682-8.61 Diagnos EKATERINA 02/11 02/11 [place] FOLLOW-UP [id number] is: CAMELIA IRIZARRY /2021 [facility] VISIT ICD-10- W C HCS CM T87.53 Necrosi s of amputat ion stump, right lower extremi ty
with Provide r Comment s: Necrosi s of Amputat ion Stump, [place] [address]-3.61 Diagnos LUKAS ALFONSO 02/11 02/12 [place] 30 MINUTES 8.49800813 is: THRYN A /2021 [facility] [place] ICD-10- HCS CM F43.21 Adjustm ent disorde r with depress ed mood
with Provide r Comment s: Adjustm ent Disorde r with depress ed mood Inpatient 26712-1.61 02/11 02/11 [place] Encounter [id number] /2021 [facility] Inpatient 55108-7.61 02/12 02/12 [place] Encounter [id number] /2021 [facility] Inpatient 33010-4.61 02/12 02/12 [place] Encounter [id number] /2021 [facility] Inpatient 29134-2.61 02/12 02/12 [place] Encounter [id number] /2021 [facility] Inpatient 68724-8.61 02/13 02/13 [place] Encounter [id number] /2021 [facility] Inpatient 74893-0.61 02/13 02/13 [place] Encounter [id number] /2021 [facility] Inpatient 45827-3.61 02/13 02/13 [place] Encounter [id number] /2021 [facility] Inpatient 35948-6.61 02/14 02/14 [place] Encounter [id number] /[facility]21 [facility] Inpatient 08474-1.61 02/14 02/14 [place] Encounter [id number] /2021 [facility] Inpatient 56761-3.61 02/14 02/14 [place] Encounter [id number] /2021 [facility] Inpatient 75174-3.61 02/15 02/15 [place] Encounter [id number] /2021 [facility] Inpatient 31845-0.61 02/15 02/15 [place] Encounter [id number] /2021 [facility] Inpatient 09429-6.61 02/15 02/15 [place] Encounter [id number] /2021 [facility] Inpatient 26949-1.61 02/16 02/16 [place] Encounter [id number] /2021 [facility] Inpatient 47548-3.61 02/16 02/16 [place] Encounter [id number] /2021 [facility] THERAPEUTI 47900-8.61 Diagnos MALIKBRITTANYLETA 02/16 02/16 [place] C [id number] is: /2021 [facility] ACTIVITIES ICD-10- HCS CM R53.1 Suly s
w ith Provide r Comment s: Suly s Inpatient 70345-1.61 02/16 02/16 [place] Encounter [id number] /[facility]21 [facility] Inpatient 80664-1.61 02/17 02/17 [place] Encounter [id number] /2021 [facility] Inpatient 73059-7.61 02/17 02/17 [place] Encounter [id number] /2021 [facility] Inpatient 51418-0.61 02/17 02/17 [place] Encounter [id number] /2021 [facility] Inpatient 42497-9.61 02/18 02/18 [place] Encounter [id number] /2021 [facility] Inpatient 65497-9.61 02/18 02/18 [place] Encounter [id number] /2021 [facility] Inpatient 40736-0.61 02/18 02/18 [place] Encounter [id number] /2021 [facility] SUBSEQUENT 41258-9.61 Diagnos EKATERINA 02/18 02/18 [facility] [id number] is: CAMELIA IRIZARRY /2021 [facility] CARE ICD-10- W C HCS CM 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
with Provide r Comment s: Acquire d absence of right foot SUBSEQUENT 02822-1.61 Diagnos AISHA RODRIGUEZ 02/18 02/18 [facility] [id number] is: CHAPIS Youngblood /2021 [facility] CARE ICD-10- HCS CM Z01.818 Encount er for other preproc edural examina tion
with Provide r Comment s: Encount er for other preproc edural examina tion Inpatient 99918-6.61 02/18 02/18 [place] Encounter [id number] /2021 [facility] Inpatient 70898-3.61 SYSTEM,CIS 02/19 02/19 [place] Encounter [id number] -ARK /2021 [facility] Inpatient 28549-1.61 02/19 02/19 [place] Encounter [id number] /2021 [facility] Inpatient 51023-4.61 SYSTEM,CIS 02/19 [place] Encounter [id number] -ARK /2021 [facility] [place] [address]-0.61 Diagnos DONALD BLAND 02/19 02/19 [place] DIG [id number] is: ON A /2021 [facility] ASSMT&MGMT ICD-10- HCS 21+ CM Z79.899 Other retirement (curren t) drug therapy
wi Provide r Comment s: Other retirement (curren t) drug therapy Inpatient 72924-3.61 02/19 02/19 [place] Encounter [id number] /2021 [facility] SPECIAL 36056-4.61 Diagnos SEUN DWYER 02/19 02/23 [place] ANESTHESIA [id number] is: PARK Bennett /2021 [facility] SERVICE ICD-10- HCS CM T87.89 Other complic ations of amputat ion stump<b r/>with Provide r Comment s: Other Complic ations of Amputat ion Stump GARAMYCIN 90259-4.61 Diagnos RAMPETSREI 02/19 02/23 [place] GENTAMICIN [id number] is: CAMELIA IRIZARRY /2021 [facility] INJ ICD-10- W C HCS CM T87.89 Other complic ations of amputat ion stump<b r/>with Provide r Comment s: Other complic ations of amputat ion stump OFFICE O/P 22145-7.61 Diagnos YULIYA,SEUN 02/19 02/19 [place] EST SF 8.49367471 is: PARK Bennett /2021 [facility] 10-19 [place] ICD-10- HCS CM Z89.439 Acquire d absence of 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 foot
with Provide r Comment s: History of amputat ion of foot ([facility] 7091217 09) OFFICE O/P 00735-4.61 Diagnos YULIYA,SEUN 02/19 02/19 [place] EST HI 8.65126117 is: PARK Bennett /2021 [facility] 40-54 [place] ICD-10- HCS CM Z89.439 Acquire d absence of 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 foot
with Provide r Comment s: History of amputat ion of foot ([facility] 6085013 09) Inpatient 40322-8.61 02/19 02/19 [place] Encounter [id number] /2021 [facility] Inpatient 37879-7.61 02/19 02/19 [place] Encounter [id number] /2021 [facility] Inpatient 39619-6.61 02/20 02/20 [place] Encounter [id number] /2021 [facility] Inpatient 76178-6.61 02/20 02/20 [place] Encounter [id number] /2021 [facility] Inpatient 89142-3.61 02/20 02/20 [place] Encounter [id number] /2021 [facility] Inpatient 46423-4.61 02/21 02/21 [place] Encounter [id number] /2021 [facility] Inpatient 31808-1.61 02/21 02/21 [place] Encounter [id number] /[facility] Inpatient 18530-8.61 02/21 02/21 [place] Encounter [id number] /2021 [facility] Inpatient 98664-8.61 02/22 02/22 [place] Encounter [id number] /[facility] Inpatient 34202-2.61 02/22 02/22 [place] Encounter [id number] /2021 [place] [address]-2.61 Diagnos YUE AMARAL 02/22 02/22 [place] DIG 8.42513744 is: DEN L /2021 [facility] ASSMT&MGMT ICD-10- HCS 11-20 CM Z51.81 Encount er for therape utic drug level monitor ing<br/ >with Provide r Comment s: Encount er for Therape utic Drug Level Monitor ing Inpatient 90374-9.61 02/22 02/22 [place] Encounter [id number] /2021 [facility] POSTOP 26601-6.61 Diagnos EKATERINA 02/22 02/22 [place] FOLLOW-UP [id number] is: CAMELIA IRIZARRY /2021 [facility] VISIT ICD-10- W C HCS CM 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
with Provide r Comment s: Acquire d absence of right foot Inpatient 77035-9.61 02/22 02/22 [place] Encounter [id number] /2021 [facility] Inpatient 65643-9.61 02/22 02/22 [place] Encounter [id number] /2021 [facility] Inpatient 14772-9.61 02/23 02/23 [place] Encounter [id number] /2021 [facility] THERAPEUTI 59931-5.61 Diagnos LETA ASIF 02/23 02/23 [place] C 8.30684271 is: /2021 [facility] ACTIVITIES ICD-10- HCS CM R53.1 Weaksharmila s
w ith Provide r Comment s: Weaknes s Inpatient 55953-8.61 02/23 02/23 [place] Encounter [id number] /2021 [facility] Inpatient 47940-8.61 02/23 02/23 [place] Encounter [id number] /2021 [facility] Inpatient 43210-7.61 02/23 02/23 [place] Encounter [id number] /2021 [facility] Inpatient 74977-9.61 02/24 02/24 [place] Encounter [id number] /2021 [facility] Inpatient 30547-9.61 02/24 02/24 [place] Encounter [id number] /2021 [facility] POSTOP 19094-4.61 Diagnos RAMPETSREI 02/24 02/24 [place] FOLLOW-UP [id number] is: JUAN CCAMELIA /2021 [facility] VIS[facility] ICD-10- W C HCS CM 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
with Provide r Comment s: Acquire d absence of right foot Inpatient 85178-7.61 02/24 02/24 [place] Encounter [id number] /2021 [facility] Inpatient 23981-2.61 02/25 02/25 [place] Encounter [id number] /2021 [facility] Inpatient 33285-1.61 02/25 02/25 [place] Encounter [id number] /2021 [facility] Inpatient 18380-0.61 02/25 02/25 [place] Encounter [id number] /2021 [facility] Inpatient 91014-7.61 02/26 02/26 [place] Encounter [id number] /2021 [facility] Inpatient 71360-4.61 HANNAH LEWIS 02/26 02/26 [place] Encounter [id number] IE V /2021 [facility] Inpatient 20478-1.61 07/02 07/02 [place] Encounter [id number] /2021 [facility] Inpatient 31206-0.61 07/02 07/02 [place] Encounter [id number] /2021 [facility] Inpatient 22017-1.61 07/02 07/02 [place] Encounter [id number] /2021 [facility] Inpatient 81143-9.61 07/03 07/03 [place] Encounter [id number] /2021 [facility] Inpatient 74901-4.61 07/03 07/03 [place] Encounter [id number] /2021 [facility] Inpatient 79808-9.61 07/04 07/04 [place] Encounter [id number] /2021 [facility] Inpatient 44238-4.61 07/04 07/04 [place] Encounter [id number] /2021 [facility] Inpatient 03879-4.61 07/05 07/05 [place] Encounter [id number] /2021 [facility] Inpatient 29898-3.61 07/05 07/05 [place] Encounter [id number] /2021 [facility] Inpatient 06544-7.61 07/05 07/05 [place] Encounter [id number] /2021 [facility] Inpatient 01199-4.61 07/06 07/06 [place] Encounter [id number] /2021 [facility] Inpatient 07674-6.61 0703/03 [place] Encounter [id number] /2021 [facility] POSTOP 17530-2.61 Diagnos RAMPETSREI 0703/03 [place] FOLLOW-UP [id number] is: JUAN CCAMELIA /2021 [facility] VIS[facility] ICD-10- W C HCS CM 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
with Provide r Comment s: Acquire d absence of right foot Inpatient 65250-1.61 07/ 07/ [place] Encounter [id number] /2021 [facility] Inpatient 57027-5.61 0703/04 [place] Encounter [id number] /2021 [facility] Inpatient 67176-8.61 0703/04 [place] Encounter [id number] /2021 [facility] Inpatient 35191-3.61 0703/04 [place] Encounter [id number] /2021 [facility] Inpatient 84284-2.61 03/05 03/05 [place] Encounter [id number] /2021 [facility] Inpatient 94895-9.61 03/05 03/05 [place] Encounter [id number] /2021 [facility] [place] [address]-1.61 Diagnos LUKAS ALFONSO 03/05 03/06 [place] 30 MINUTES [id number] is: THRYN A /2021 [facility] ICD-10- HCS CM F43.21 Adjustm ent disorde r with depress ed mood
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 Inpatient 87511-4.61 03/05 03/05 [place] Encounter [id number] /2021 [facility] Inpatient 38057-9.61 03/06 03/06 [place] Encounter [id number] /2021 [facility] Inpatient 75323-9.61 03/06 03/06 [place] Encounter [id number] /2021 [facility] Inpatient 45746-2.61 03/06 03/06 [place] Encounter [id number] /2021 [facility] Inpatient 56323-2.61 03/07 03/07 [place] Encounter [id number] /20[facility] Inpatient 47168-9.61 0703/07 [place] Encounter [id number] /2021 [facility] Inpatient 10643-4.61 03/07 03/07 [place] Encounter [id number] /2021 [facility] Inpatient 66747-6.61 03/07 03/07 [place] Encounter [id number] /2021 [facility] Inpatient 56968-6.61 03/08 03/08 [place] Encounter [id number] /2021 [facility] POSTOP 55479-1.61 Diagnos EKATERINA 03/08 03/09 [place] FOLLOW-UP [id number] is: JUAN CCAMELIA /2021 [facility] VISIT ICD-10- W C HCS CM 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
with Provide r Comment s: Acquire d absence of right foot Inpatient 63043-5.61 03/08 03/08 [place] Encounter [id number] /2021 [facility] Inpatient 95947-2.61 03/09 03/09 [place] Encounter [id number] /2021 [facility] Inpatient 64335-7.61 03/09 03/09 [place] Encounter [id number] /2021 [facility] GAIT 07581-9.61 Diagnos LETA ASIF 03/09 03/09 [place] [facility] 8.49565907 is: /2021 [facility] THERAPY ICD-10- HCS CM R53.1 Weaknes s
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
w ith Provide r Comment s: Weaknes s Inpatient 87908-1.61 03/10 03/10 [place] Encounter [id number] /2021 [facility] Inpatient 58871-1.61 03/11 03/11 [place] Encounter [id number] /2021 [facility] Inpatient 89198-6.61 03/11 03/11 [place] Encounter [id number] /2021 [facility] Inpatient 14273-5.61 03/11 [place] Encounter [id number] /20[place] [address]-2.61 Diagnos LUKAS ALFONSO 03/11 03/12 [place] 30 MINUTES 8.21668868 is: THRYN A /2021 [facility] ICD-10- HCS CM F43.21 Adjustm ent disorde r with depress ed mood
with Provide r Comment s: Adjustm ent Disorde r with depress ed mood GAIT 20131-8.61 Diagnos LETA ASIF 03/11 03/11 [place] [facility] [id number] is: /2021 [facility] THERAPY ICD-10- HCS CM R53.1 Weaknes s
w ith Provide r Comment s: Weaksharmila s Inpatient 67366-1.61 03/12 03/12 [place] Encounter [id number] /2021 [facility] HCS Inpatient 74336-4.61 03/12 03/12 [place] Encounter [id number] /2021 [facility] HCS Inpatient 95200-7.61 03/12 03/12 [place] Encounter [id number] /2021 [facility] HCS THERAPEUTI 65058-7.61 Diagnos LETA ASIF 03/12 03/12 [place] [id number] is: /2021 [facility] ACTIVITIES ICD-10- HCS CM R53.1 Weaknes s
w ith Provide r Comment s: Weaksharmila s Inpatient 55424-7.61 03/12 03/12 [place] Encounter [id number] /2021 [facility] HCS Inpatient 62299-0.61 03/12 03/12 [place] Encounter [id number] /2021 [facility] [place] [address]-5.61 Diagnos LUKAS ALFONSO 03/12 03/13 [place] 30 MINUTES [id number] is: THRYN A /2021 [facility] ICD-10- HCS CM F43.21 Adjustm ent disorde r with depress ed mood
with Provide r Comment s: Adjustm ent Disorde r with depress ed mood Inpatient 04102-6.61 03/12 [place] Encounter [id number] /2021 [facility] Inpatient 94311-1.61 03/12 03/12 [place] Encounter [id number] /2021 [facility] Inpatient 56945-2.61 Admit Yair MA 03/12 03/12 Discha rge [place] Encounter [id number] Reason: ICHOLAS R /2021 from [facility], inpatient HCS WEAKNES treatment to S
the [employer]cted (OPT-SC) rolls. Inpatient 34285-8.61 ASHLYN, 03/12 03/12 [place] Encounter [id number] NIKKI R /2021 [facility] Outpatient 73450-2.61 03/18 [place] Encounter [id number] [facility] HC PRO 87565-3.61 Diagnos JUANA ORR 03/21 [place] PHONE CALL [id number] is: RA R /2021 [facility] 11-20 MIN ICD-10- HCS CM Z71.89 Other specifi ed claims counsel ing<br/ >with Provide r Comment s: Other specifi ed claims counsel ing Outpatient 02313-9.61 SYSTEM,CIS 03/22 [place] Encounter [id number] -AR [facility] Outpatient [id number] SYSTEM,CIS 03/22 [place] Encounter [id number] -AR [facility] Outpatient 87933-6.61 03/22 [place] Encounter [id number] /2021 [facility] EMERGENCY 45000-661 Diagnos JANEEN JARVIS 03/22 [place] DEPT VISIT [id number] is: STANCE L /[address] [facility] ICD-10- HCS CM R06.02 Shortne ss of breath< br/>wit h Provide r Comment s: Shortne ss of Breath Inpatient [id number] Admit RAUL HOLDEN 03/22 03/31 Discha rge [place] Encounter [id number] Reason: CA H /2021 from [facility] S AL FTT<br/ inpatient HCS > treatment to the Service Connected (OPT-SC) rolls. 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
with Provide r Comment s: Acquire d absence of right foot PT EVAL 24895-6.61 Diagnos ABENA BRAN 03/23 03/23 [place] LOW [id number] is: NE /2021 [facility] COMPLEX 20 ICD-10- GENARO HCS MIN CM Z91.81 History of falling
wi th Provide r Comment s: History of falling OT EVAL 26124-9.61 Diagnos ELISE TOLEDO 03/23 03/23 [place] LOW [id number] is: [place] L /2021 [facility] COMPLEX 30 ICD-10- HCS MIN CM Z73.6 Limitat ion of activit ies due to disabil ity<br/ >with Provide r Comment s: Limitat ion of activit ies due to disabil ity Inpatient 45559-0.61 03/23 03/23 [place] Encounter [id number] /2021 [facility] Inpatient 08278-3.61 03/23 03/23 [place] Encounter [id number] /2021 [facility] Inpatient 78791-2.61 03/24 03/24 [place] Encounter [id number] /2021 [facility] Inpatient 41126-7.61 SYSTEM,CIS 03/24 03/24 [place] Encounter [id number] -ARK /2021 [facility] Inpatient 82986-2.61 03/24 03/24 [place] Encounter [id number] /2021 [facility] Inpatient 52676-8.61 03/24 03/24 [place] Encounter [id number] /2021 [facility] Inpatient 90705-2.61 03/24 03/24 [place] Encounter [id number] /2021 [facility] Inpatient 35604-0.61 03/24 [place] Encounter [id number] /2021 [facility] Inpatient 86788-1.61 03/24 03/24 [place] Encounter [id number] /2021 [facility] Inpatient 22376-1.61 03/25 03/25 [place] Encounter [id number] /2021 [facility] Inpatient 86506-1.61 SYSTEM,CIS 03/25 03/25 [place] Encounter [id number] -ARK /2021 [facility] OFFICE O/P 83923-1.61 Diagnos LOLIS,CHRI 03/25 03/25 [place] EST MOD [id number] is: ESEQUIEL H /2021 [facility] 30-39 MIN ICD-10- [facility] CM J18.0 Broncho pneumon ia, 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 organis m
w ith Provide r Comment s: Broncho pneumon ia, 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 Organis m Inpatient 48417-4.61 03/25 03/25 [place] Encounter [id number] /2021 [facility] Inpatient 05712-4.61 03/25 03/25 [place] Encounter [id number] /2021 [facility] Inpatient 28971-5.61 03/25 03/25 [place] Encounter [id number] /2021 [facility] PHYSICAL 88549-8.61 Diagnos ABENA BRAN 03/25 03/25 [place] MEDICINE [id number] is: NE /2021 [facility] PROCEDURE ICD-10- [facility] CM Z74.09 Other reduced mobilit y
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 [id number] is: URA AJ /2021 [facility] TAP OUT OPERATOR ICD-10- HCS INDIVIDU CM Z71.81 Spiritu al or religio us claims counsel ing<br/ >with Provide r Comment s: Spiritu al or religio us claims counsel ing CASE 85994-1.61 Diagnos KOREY GIANG 03/26 03/26 [place] MANAGEMENT [id number] is: SI N /2021 [facility] [place] ICD-10- HCS CM Z71.89 Other specifi ed claims counsel ing<br/ >with Provide r Comment s: Other 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 ed 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 Inpatient 99620-7.61 03/26 03/26 [place] Encounter [id number] /2021 [facility] Inpatient 04203-4.61 SYSTEM,CIS 03/27 03/27 [place] Encounter [id number] -ARK /2021 [facility] Inpatient 40357-8.61 03/27 03/27 [place] Encounter [id number] /2021 [facility] Inpatient 07028-6.61 03/27 03/27 [place] Encounter [id number] /2021 [facility] Inpatient 72691-2.61 03/27 03/27 [place] Encounter [id number] /2021 [facility] Inpatient 75867-5.61 03/27 03/27 [place] Encounter [id number] /2021 [facility] Inpatient 18447-6.61 03/27 03/27 [place] Encounter [id number] /2021 [facility] Inpatient 95496-6.61 SYSTEM,CIS 03/28 03/28 [place] Encounter [id number] -ARK /2021 [facility] Inpatient 17869-1.61 03/28 03/28 [place] Encounter [id number] /2021 [facility] Inpatient 30278-9.61 03/28 03/28 [place] Encounter [id number] /2021 [facility] Inpatient 34342-7.61 03/28 03/28 [place] Encounter [id number] /[facility]21 [facility] 39038-4.61 03/28 03/28 [place] Encounter [id number] /2021 [facility] Inpatient 23225-3.61 SYSTEM,CIS 03/29 03/29 [place] Encounter [id number] -ARK /2021 [facility] 28673-6.61 03/29 03/29 [place] Encounter [id number] /2021 [facility] THERAPEUTI 17321-9.61 Diagnos ABENA BRAN 03/29 03/29 [place] C [id number] is: NE /2021 [facility] EXERCISES ICD-10- [facility] CM M62.81 Muscle weaknes s (genera lized)< br/>wit h Provide r Comment s: Muscle weaknes s (genera lized) POSTOP 37539-5.61 Diagnos EKATERINA 03/29 03/29 [place] FOLLOW-UP [id number] is: CAMELIA IRIZARRY /2021 [facility] VISIT ICD-10- W C HCS CM 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 Inpatient 29433-4.61 03/29 03/29 [place] Encounter [id number] /2021 [facility] Inpatient 81686-3.61 03/29 03/29 [place] Encounter [id number] /2021 [facility] Inpatient 63862-9.61 SYSTEM,CIS 03/30 03/30 [place] Encounter [id number] -ARK /2021 [facility] 77172-7.61 03/30 03/30 [place] Encounter [id number] /2021 [facility] Inpatient 76944-1.61 03/30 03/30 [place] Encounter [id number] /2021 [facility] Inpatient 79743-4.61 03/30 03/30 [place] Encounter [id number] /2021 [facility] THERAPEUTI 43975-3.61 Diagnos LENKA CHAVEZ 03/30 03/30 [place] C [id number] is: INGE C /2021 [facility] ACTIVITIES ICD-10- HCS CM R53.1 Weaknes s
w ith Provide r Comment s: Weaknes s Inpatient 52757-3.61 SYSTEM,CIS 03/31 03/31 [place] Encounter [id number] -ARK /2021 [facility] THERAPEUTI 88915-5.61 Diagnos JOSIAH GOMEZ 03/31 03/31 [place] C [id number] is: /2021 [facility] ACTIVITIES ICD-10- HCS CM Z73.6 Limitat ion of activit ies due to disabil ity<br/ >with Provide r Comment s: Limitat ion of activit ies due to disabil ity Inpatient 58877-0.61 03/31 03/31 [place] Encounter [id number] /2021 [facility] 60193-0.61 03/31 [place] Encounter [id number] /2021 [facility] Inpatient 26806-9.61 03/31 03/31 [place] Encounter [id number] /2021 [facility] CASE 39171-5.61 Diagnos MODOC 03/31 03/31 [place] MANAGEMENT [id number] is: ,CARIE L /2021 [facility] ICD-10- [facility] CM Z65.8 Oth problem s related to psychos ocial circums tances< br/>wit h Provide r Comment s: Other specifi ed Problem s Related to Psychos ocial Circums tances Outpatient 86066-2.61 03/31 [place] Encounter [id number] /2021 [facility] Outpatient 51444-6.61 04/02 [place] Encounter [id number] /2021 [facility] POSTOP 50282-8. Diagnos RAMPETSREI 04/05 [place] FOLLOW-UP [id number] is: ANNETTE IRIZARRYE /2021 [facility] VISIT ICD-10- W C [facility] CM T87.53 Necrosi s of amputat ion stump, right lower extremi ty
with Provide r Comment s: Necrosi s of amputat ion stump, right lower extremi ty Outpatient 20634-5.61 04/05 [place] Encounter [id number] /2021 [facility] [place] [address]861 Diagnos KATHLEEN,CLAYTON 04/05 [place] DIG [id number] is: N T /2021 [facility] ASSMT&MGMT ICD-10- [facility] 5-10 CM S91.309 S Unspeci fied open wound, 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 foot, sequela
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, 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 Outpatient 78187-5.61 04/19 [place] Encounter [id number] [facility] POSTOP 90600-6. Diagnos RAMPETSREI 04/19 [place] FOLLOW-UP [id number] is: ANNETTE IRIZARRYE /2021 [facility] VISIT ICD-10- W C [facility] CM T87.53 Necrosi s of amputat ion stump, right lower extremi ty
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
with Provide r Comment s: Periphe ral artery occlusi ve disease (SCT [id number] 01) Outpatient 26841-7.61 04/20 [place] Encounter [id number] [facility] Outpatient 43493-4 JASON NICHOLAS 04/26 [place] Encounter [id number] RK R /2021 [facility] EMERGENCY 27074-4 Diagnos JUAN JBLANCHE 04/26 [place] DEPT VISIT [id number] is: CHETAN R /2021 [facility] ICD-10- [facility] CM L08.9 Local infecti on of the skin and subcuta neous tissue, unsp
with Provide r Comment s: Local Infecti on of the Skin and Subcuta neous Tissue, 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 Outpatient 00892-661 05/05 [place] Encounter [id number] /2021 [facility] Outpatient 16429-161 05/05 [place] Encounter [id number] /2021 [facility] OFFICE O/P 56572-6 Diagnos JESUS MALDONADO 05/11 [place] EST MOD [id number] is: CATHERINE E /2021 [facility] 30-39 MIN ICD-10- [facility] CM R91.8 Other nonspec ific abnorma l finding of lung field<b r/>with Provide r Comment s: Multipl e lung nodules Outpatient 75958-861 15 [place] Encounter [id number] /2021 [facility] Outpatient 30408-5.61 05/14 [place] Encounter [id number] /2021 [facility] HC PRO 74434-5 Diagnos REHANA SUAREZ 05/15 [place] PHONE CALL [id number] is: [facility]NE [facility] [facility] 5-10 MIN ICD-10- HCS CM Z71.89 Other specifi ed claims counsel ing<br/ >with Provide r Comment s: Other specifi ed claims counsel ing Outpatient 33995-0.61 CARLA, 05/15 [place] Encounter [id number] RA R /2021 [facility] Outpatient 45115-0.61 CARLA, 05/17 [place] Encounter [id number] RA R /2021 [facility] Outpatient 37684-5.61 05/21 [place] Encounter [id number] /2021 [facility] OFFICE O/P 63271-7.61 Diagnos RAMPETSREI 05/24 [place] EST LOW [id number] is: CAMELIA IRIZARRY /2021 [facility] 20-29 MIN ICD-10- W C HCS CM T87.53 Necrosi s of amputat ion stump, right lower extremi ty
with Provide r Comment s: Necrosi s of amputat ion stump, right lower extremi ty Outpatient 07305-4.61 05/25 [place] Encounter [id number] /2021 [facility] Outpatient 63057-2.61 05/25 [place] Encounter [id number] /2021 [facility] OFFICE O/P 11319-0.61 Diagnos OBINNA,E 06/01 [place] EST HI [id number] is: [facility]EL [facility] [facility] 40-54 MIN ICD-10- HCS CM I77.9 Disorde r of arterie s and arterio les, 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
with Provide r Comment s: Periphe ral artery occlusi ve disease (SCT [id number] 01) Outpatient 25889-3.61 Catrachito SINGH 06/09 [place] Encounter [id number] ACHEL R [facility] [facility] Procedures Combined list of: 1) Procedures from [facility] facilities going back up to the last 18 months, not all VA non-surgical procedures are included; 2) All procedures from the Department of Defense facilities. Procedure Procedure Code Date Perfomer Comments Source Type Revisional FOOT/TOES 08551 02/20/20 [facility] [place] amputation, right SURGERY 22 R,JANIS C [facility] foot Irrigation and PROCEDURE Debridement right FOOT/TOES 37682 01/15/20 [facility] [place] transmetatarsal SURGERY 22 R,JANIS V[facility] S amputation, PROCEDURE achilles tendon lengthening Femoral FEM/POPL 75295 01/13/20 MARISOL LOGAN [place] Endarterectomy, REVASC 22 K L [facility] lower extremity W/STENT thrombectomy, po ible angiogram Social History Combined list of available smoking, tobacco, and other social history [facility]. 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 [facility] NO History of tobacco use INPT TOBACCO USER 02/04/2020 [facility] History of tobacco use AL-TOBACCO USE WI 30 12/04/2018 [facility] MIN OF WAKEUP History of tobacco use CURRENT TOBACCO USER 07/14/2017 [facility] History of tobacco use CURRENT TOBACCO USER 09/01/2016 [facility] History of tobacco use CURRENT TOBACCO USER 11/24/2015 [facility] History of tobacco use CURRENT TOBACCO USER 08/05/2009 [facility] History of tobacco use CURRENT TOBACCO USER 10/18/2006 [facility] Plan of Care List of future care activities from Department [facility] facilities. Additional future care activities may be listed in the Assessment and Plan section. Date/Time Care Activity Care Activity Detail Facility 06/10/2022 AMBULATORY - NONE AMBULATORY - NONE [facility] Advance Directives List of completed, amended, or rescinded Advance Directives on record at [facility] facilities. An actual copy of the Directive is not included. Date Advance Directive Provider Source 06/13/2019 ADVANCE DIRECTIVE DISCUSSION ROEL BOLDEN [facility] 03/09/2019 GOALS and PREFERENCES TO INFORM ROEL BOLDEN [facility] LIFE-SUSTAINING TREATMENT PLAN
--- OUTSIDE RECORDS SUMMARY | 2022-06-10 00:52 | XMS_ITS | Clinical Summary ---
:1945 Author Organization [employer] [facility] [place] [address] Care Team Providers Name Role Phone Bobbi Quevedo MD Unavailable Micheal Valentin MD Unavailable Eric Hickey MD Unavailable Antonio Vitale Unavailable Unavailable Eliz Hilton MD Primary Care Provider [phone] Allergies Active Allergy Reactions Severity Noted Date Comments Cortisone Rash 10/06/2004 House Dust Cough 04/10/2019 Mold Cough 04/10/2019 Unlisted Allergen (Include Detail In Cough 03/29 Certain perfumes Comments) Medications Medication Sig Dispensed Refills Start Date End Date Status lidocaine 5 % [The details of 0 04/30/2022 Active topical the medication patchIndications: are not pain available because there are pending changes by a home health clinician.] mupirocin [The details of 0 04/26/2022 Act joseph (BACTROBAN the medication OINTMENT) are not ointmentIndicatio available ns: to prevent because there infection are pending changes by a home health clinician.] silver Apply topically 0 Acti ve (SilvaSorb) to affected topical gel area(s). As directed omeprazole Take 1 Capsule 30 Capsule 0 05/18/2022 Ac tive (PRILOSEC) 20 mg (20 mg) by Delayed-Release mouth once capsuleIndication daily s: Chronic GERD aspirin chewable Chew 1 Tablet 30 Tablet 0 05/19/2022 Active 81 mg chewable (81 mg) by tabletIndications mouth once : PAD (peripheral daily with a artery disease) meal. (HC) clopidogreL Take 1 Tablet 30 Tablet 0 05/19/2022 Act joseph (PLAVIX) 75 mg (75 mg) by tabletIndications mouth every : PAD (peripheral morning. artery disease) (HC) atorvastatin Take 1 Tablet 30 Tablet 0 05/18/2022 Ac tive (LIPITOR) 40 mg (40 mg) by tabletIndications mouth at : Stenosis of bedtime. carotid artery, unspecified laterality amLODIPine Take 1 Tablet 30 Tablet 0 05/19/2022 Acti ve (NORVASC) 5 mg (5 mg) by mouth tabletIndications once daily. : Hypertension Omeprazole 20 mg Take 1 tablet 0 07/08/2016 05/17/20 Discontinued tablet by mouth once 22 (Pharm acist daily. change per medication history (E-cancel not sent)) atorvastatin Take 1 tablet 30 tablet 0 04/21/2020 05/17/20 Di scontinued (LIPITOR) 80 mg by mouth at 22 (P harmacist tabletIndications bedtime. ch juve per : Stenosis of medica tion carotid artery, hist ory unspecified (E-cance l not laterality sent)) trospium Take 1 tablet 0 04/21/2020 05/17/20 Disco ntinued (SANCTURA) 20 mg by mouth 2 22 (P harmacist tablet times daily change p er before meals. medica tion From [place] history provider on (E-cance l not 04/16/20 sent)) Active Problems Problem Noted Date Right lower lobe lung mass 05/19/2022 Overview: Presumed adenocarcinoma of the RLL lung , CTA 05/17/2022 2.3x1.8cm. Followed at the [facility]. Mononeuropathy of left posterior interosseous nerve Stenosis of peripheral vascular stent 05/17/2022 Overview: Right carotid Overactive bladder 05/17/2022 PAD (peripheral artery disease) 05/17/2022 Foot amputee 05/17/2022 Overview: Due to peripheral arterial disease and i nfections. Separate incidents with similar mid-foot amputations on each foot. 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 Residual memory problems. [facility] Bobbi Quevedo, [facility], at the [place] CARSON Galaviz ([phone]) at e [place] [facility] is his go to person with any questions/issues/needs along with Meng Zuniga CNP who patient sees monthly and will continue to manage prescriptions Last Assessment & Plan: Tobacco abuse 04/11/2016 Carotid artery stenosis 03/04/2016 Overview: S/p R carotid stent placement 09/2016 Resolved Problems Problem Noted Date Resolved Date Carpal tunnel syndrome of right wrist 07/09/2016 Overview: Numbness and pain in R hand, wakes him u p at night. Positive Phalen. Referred to ortho on 07/09/16 History of musculoskeletal system surgery 04/11/2016 05/17/2022 Overview: L4 to sacrum posterior lumbar decompress ion and instrumented fusion in 1995 Discussed having posterior lumbar decomp ression and instrumented fusion of the adjacent segment C3-4 w/ Dr. Hickey on 12/30/15 MRI lumbar spine 12/20/15 1) Previous fusion from L4 to S1 w/ dre d bony bridging across both operated disc spaces 2) Advanced disc and facet degenerative changes at L3-4 w/ resultant high-grade central spinal canal stenosis 3) Scattered changes of spondylosis else where MRI cervical spine 12/20/15 1) Multilevel bony foraminal narrowing, high-grade on the L at C4-5 and on the R at C6-7, w/ some progression from 08/05/08 2) Prominence of the posterior disc radha ins at several levels, w/ slight indentation along the ventral sufrace of the cord at C5-6 and C6-7. No high- grade cord compression. No spinal cord edema or myelomalacia is identified. 3) Degenerative fusion across the L C5-6 facet aticulation, new from 2007 study Healthcare maintenance 04/11/2016 05/17/2022 Overview: Immunizations: Pneu PCV13 on 11/24/15 Pneumovac 01/12/05 TD 01/12/05 TDaP 11/24/15 Lung Cancer Screening 01/23/16 - suspicious RLL nodule 14mm in diameter, new since 03/23/06, recommend 3mo f/u - also mildly enlarged R hilar and borde rline enlarged R paratracheal lymph nodes U/s retroperitoneal screening for AAA 12/04/15 - Maximal AP diameter of the infr arenal ab aorta is 2.7cm (WNL) Tobacco user 04/11/2016 04/11/2016 Overview: 60pkyr hx of smoking Throat cancer 03/26/2016 05/17/2022 Overview: 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 Excised 10/11/2005 w/o complication Been scoped several times since (as rece ntly as 2015). No further issues. Cleared by ENT for follow-up prn Depression, major, single episode, moderate 03/26/2016 05/17/2022 Overview: Depressed since and mother wit hin 2 months of each other (summer) Started Wellbutrin on 07/09/2016 Referred to Psychology as well, care merchandising coordinator rdinator to assist him in getting an appt (06/2016) Chronic GERD 03/26/2016 05/17/2022 Overview: Had for years 03/04/16 Takes 4 Tums per day Declined omeprazole Reports feeling of food getting stuck lo w in esophagus Had EGD on 05/19/16, not seen record of i t Chronic GERD 03/04/2016 03/26/2016 Encounters Date Type Specialty Care Team Description 05/28/2022 Home Care Visit Cm Espino, SN - OASIS FINANCIAL AID MANAGER 05/28/2022 Home Care Visit Allyson Wilkes, CARE COORDINATION PT 05/25/2022 Home Care Visit Tess Nix, PT PT - SUNNY E VISIT 05/24/2022 Home Care Visit Tess Nix, PT CARE SEED CLEANER RDINATION 05/23/2022 Home Care Visit Niya Owen, RN CAR E COORDINATION 05/20/2022 Home Care Visit Tess Nix, PT PT - OAS IS START OF CARE 05/20/2022 Travel 05/19/2022 Telephone Erick Dahl Surgic al Followup PA 05/19/2022 Telephone Yolis Lim RN Referr al (Liaison Referral) 05/17/2022 - Hospital Encounter [facility], w Hospitalists Chronic GERD (Primary Dx); 05/18/2022 Of PAD (peripheral artery disease) (HC); Todd Lara Stenos is of carotid artery, unspecified laterality; Hypertension; Chantell Casas Mononeur opathy of left posterior interosseous nerve; Delayed surgica l wound healing of foot amputation stump (HC) Discharge Summary - Chantell Casas MD - 05/18/2022 6:13 PM CDT Images from the original not e were not included. HOSPITALIST DISCHARGE SUMMAR Y ? ? [facility] Admission Date: 05/17/2022 Discharge Date: 05/18/2022 Discharge Plan: Driss jeffrey was discharged to home Principal Diagnosis Mononeuropathy of left post erior interosseous nerve, R carotid artery stent stenosis Hospital Problem List Principal Problem: Mononeuropathy of left post erior interosseous nerve Active Problems: Carotid artery stenosis Tobacco abuse Chronic GERD Stenosis of peripheral vasc ular stent (HC) Overactive bladder PAD (peripheral artery dise ase) (HC) Foot amputee (HC) Delayed surgical wound heal ing of foot amputation stump (HC) ADDITIONAL COMMENTS REGARDIN G DIAGNOSIS SPECIFICITY Additional Diagnosis Informa tion ?? Hospital Course Mr. Driss Waters is a 77 y.o. male with peripheral arterial disease who [facility] with left hand dysfunction. He noted about 3 episodes of difficulty moving the fingers in hi s left hand; no arm/leg/face weakness or dysarthria. The symptoms on 05/15 lasted for about 3 hours then gradulally resolved and have not recurred. Pt reported he had been off all home medications since discharge from the [place] as he didn't get [facility] set up and did not set up his own pillbox. In the OSH ED, CT stroke protocol showed Interval right common carotid artery stenting with a large amount of plaque /intimal hyperplasia in the mid segment of the stent causing a critical (>99%) in-stent stenosis by NASCET criteria with a hairline residual lumen. Interval left internal carotid artery origin stenti ng with a moderate amount of plaque/intimal hyperplasia in the proximal segment of the stent causing a severe (77%) in-stent stenosis by NASCET criteria with a 0.9mm residual lumen. Mild (<50%) steno sis at the origin of the rig ht internal carotid artery by NASCET criteria caused by an ulcerated, non-calcified plaque with a >2mm residual lumen. Mild left common carotid artery stenosis. Pt was tra nsferred to [facility] and neurolog y was consulted. ASA and statin restarted. MRI brain: No acute infarction, mass effect, or recent intracranial hemorrhage. Chronic lacunar infarctions in the right thalamus a nd left cerebellar hemispher e. Mild chronic microvascular ischemic changes and diffuse cerebral volume loss. Moderately severe mucosal thickening and small air-fluid level in the left maxillary sinus ra ise the possibility of acute sinusitis. Neurology felt that his carotid artery stenosis was an incidental finding and that pt's hand weakness was likely a compressive posterior interosseous neuropathy r ather than TIA. Per vascular surgery: Unfortunately the patient does not have any good options from an endovascular perspective to treat the common carotid artery stent stenosis as I think attempting to stent the lesion is associa lloyd with a high risk of distal embolization and stroke. Should the patient need an intervention based on symptomatology of the lesion would be likely best served with an enda rterectomy which again will be quite difficult given the patient's history of radiation therapy to the neck, proximal extent of the common carotid stent and the likelihood the need for an interposition bypass graft. At this point I would only offer the patient optimal medical therapy with dual antiplatelet therapy and high-dose statin. Pt will discharge on ASA, plavix, statin as well as amlodipine for hypertension. Compliance wi medications stressed and smoking cessation was encouraged. He should f/u with [place] the [place] and vascular surgery at the [place]. ?? Of note, pt had a prolonged [place] at the [place] over the [place] for RLE infection, ultimately underwent R partial foot amputation. He has a small open area on his R foot. Previously he had undergo ne partial foot amputation o n the left. Podiatry was consulted, recommended continued local wound care, WBAT with postop shoe when up. Xray R foot without evidence of osteomyelitis. Culture of open area pending but NGTD. ABIs redu jes (R 0.41, L 0.81). CTA with runoffs as below. Vascular surgery recommended no intervention at this time except medical management. He will likely need a right leg angiogra m to improve flow to the mazin t and attempt to revascularize his SFA. Plan for f/u at the [place] wound clinic/podiatry and with vascular surgery. Attempted to set up HHC but pt left prior to this being confirmed. Filled one month of meds here at discharge and encouraged him to fill his own pillbox in the meantime. ?? Recommendations for Outpatie nt Provider ? ? PCP: [facility] (Inactive) Recommendations for outpati ent provider Specific recommendations to be addressed at the follow up visit: PVD with nonhealed surgical site R foot, occluded carotid stent Mononeuropathy of hand vs TI A Non-adherence to medications Medication regimen changes: see Hospital Course above. Functional evaluations: Fall Risk: Total Score (If 5 or > is High Risk): 2 (05/18/22 0900) NuDESC (>/=2 abnormal): 0 ( 05/17/22 2100) MOCA: // SLUMS: 23 ( 2 0854) Discharge Medications Your Home Medicines START taking these medicines Instructions amLODIPine 5 mg tablet For diagnoses: Hypertension Start taking on: April 302021 Commonly known as: NORVASC Take 1 Tablet (5 mg) by sarah th once daily. aspirin chewable 81 mg chewa ble tablet For diagnoses: PAD (peripher al artery disease) Start taking on: April 302021 Chew 1 Tablet (81 mg) by mo uth once daily with a meal. clopidogreL 75 mg tablet For diagnoses: PAD (peripher al artery disease) Start taking on: April 302021 Commonly known as: PLAVIX Take 1 Tablet (75 mg) by mo uth every morning. omeprazole 20 mg Delayed-Rel ease capsule For diagnoses: Chronic GERD Commonly known as: PRILOSEC Replaces: omeprazole 20 mg t ablet Take 1 Capsule (20 mg) by m outh once daily CHANGE how you take these me dicines Instructions atorvastatin 40 mg tablet For diagnoses: Stenosis of c arotid artery, unspecified laterality What changed: ?? medication strength ?? how much to take Commonly known as: LIPITOR Take 1 Tablet (40 mg) by mo uth at bedtime. CONTINUE taking these medici sharmila Instructions lidocaine 5 % topical patch Apply 1 Patch on dry, clean , hairless skin once daily. Wear for only 12 hours, then remove for 12 hours mupirocin ointment Commonly known as: BACTROBAN OINTMENT Apply topically to affected area(s) two times daily. SilvaSorb topical gel Generic drug: silver Apply topically to affected area(s). As directed STOP taking these medicines omeprazole 20 mg tablet Replaced by: omeprazole 20 m g Delayed-Release capsule Where to get your medicines These medications were sent to [facility] [address] [place], [place] [address] [id number] Hours: Open 24 Hours ?? amLODIPine 5 mg tablet ?? aspirin chewable 81 mg ch ewable tablet ?? atorvastatin 40 mg tablet ?? clopidogreL 75 mg tablet ?? omeprazole 20 mg Delayed- Release capsule Pertinent Findings / Procedu res First weight: 78.7 kg (173 l b 9.6 oz) (05/17/22 0038) Last weight: 77 kg (169 lb 12.1 oz) (05/17/22 0600) Vitals: BP (!) 187/124 (Cuff Size: Adult Regular) Pulse 89 Temp 97.3 ??F (36.3 ??C) Resp 16 Wt 77 kg (169 lb 12.1 oz) SpO2 96% BMI 24.36 kg/m?? Patient was seen and examine d today. Consultants Encounter Notes Consults from Darnell Damon MD (Physical Medicine and Rehabilitation) Consults from Torri Romero MD (Neurology) Consults from Stefany Rice DPM (Podiatry Handoff) Consults from Melody Singer PA (Vascular surgery) Diet / Activity / Follow-Up After Discharge Orders and I nstructions AMB CONSULT TO HOME custodial Health Certification/F brandan to Face Attestation: I certify that this patient is confined to his/her home and needs intermittent alf care, physical therapy and/or speech therapy or continues to need occupational therapy. A plan of care has been established and will be reviewed periodically by a physician or allowed practitioner. Services will be furnished while the patient is under the care of a physician or allowed practitioner. The mainor ent had a dzxa-us-mkyz encou nter with a physician or an allowed non-physician practitioner and the encounter was related to the primary reason for home health. Date of the Face to Face Enc ounter: 05/18/2022 Based on my findings, review of the medical records, and/or collaboration with the other providers, the following services are medically necessary home health services: Residential and Physical Therapy This patient is confined to his/her home because: The patient requires assistance to leave the home for safety due to foot wound Patient requires the assista nce of another individual in order to leave the home. Provider following for home care services: [facility] (Inactive) Electronically signed, Braulio Casas MD 05/18/2022 After Hospital Follow Up Ap pointment(s) Vascular surgery, neurology , podiatry at the [place] When to follow up: 2 to 4 w eeks When is patient being disch arged?: Today Caring for your wound or in cision Your wound or incision is l ocated on your foot. Change dressing daily. Occupational Therapy Eval a nd Treat Physical Therapy Heide and T remariama Primary Care Provider jose w up appointment(s) We have received an order f rom your discharging physician; unfortunately we are unable to schedule the appointment before you are discharged. Please contact the [facility] office at [phone] on the first business day foll owing your discharge. When to follow up: 1 to 5 d ays Recommendations for outpati ent provider Specific recommendations to be addressed at the follow up visit: PVD with nonhealed surgical site R foot, occluded carotid stent Mononeuropathy of hand vs TI A Non-adherence to medications Medication regimen changes: see Hospital Course above. Functional evaluations: Fall Risk: Total Score (If 5 or > is High Risk): 2 (05/18/22 0900) NuDESC (>/=2 abnormal): 0 ( 05/17/22 2100) MOCA: // SLUMS: 23 ( 2 0854) Regular diet: - eat a wide variety of mazin ds, including fruits and vegetable, dairy, grains and meats - limit the amount of solid fat such as butter, margarine and shortening - get most of your fat sourc es from fish, nuts and vegetable oils Rehab Potential: Excellent Residential Eval and Tr eat Treatment Options: Full Res uscitation Up as tolerated Get regular activity and tr y to walk for a total of 30 minutes per day. Start by walking for 5 to 10 minutes at one time and slowly build to walking for 30 minutes one time. Rest is also an important pa rt of healing. Slowly return to your regular level of activity. Save your energy by spreading out activities that make you tired. Rest as needed. When should you be concerne d? Your health care provider i s: [facility] (Inactive) Please call your health care provider if: - you feel you are getting w orse or having an increase in problems - fever greater than 101 deg cindy - increasing shortness of br eath - any signs of infection (in creasing redness, swelling, tenderness, warmth, change in appearance, or increased drainage) - blood in your urine or sto ol - coughing or vomiting blood - nausea (upset stomach) and vomiting and/or diarrhea that will not stop - severe pain that is not re lieved by medicine, rest or ice Call 911 if you feel you are having a medical emergency. Why were you at the [facility]? You were in the hospital fo r changes in your hand, the neurologist thinks due to a nerve issue and not a stroke. After Discharge Orders and I nstructions AMB CONSULT TO HOME custodial Health Certification/F brandan to Face Attestation: I certify that this patient is confined to his/her home and needs intermittent alf care, physical therapy and/or speech therapy or continues to need occupational therapy. A plan of care has been established and will be reviewed periodically by a physician or allowed practitioner. Services will be furnished while the patient is under the care of a physician or allowed practitioner. The mainor ent had a trfy-ha-pvby encou nter with a physician or an allowed non-physician practitioner and the encounter was related to the primary reason for home health. Date of the Face to Face Enc ounter: 05/18/2022 Based on my findings, review of the medical records, and/or collaboration with the other providers, the following services are medically necessary home health services: Residential and Physical Therapy This patient is confined to his/her home because: The patient requires assistance to leave the home for safety due to foot wound Patient requires the assista nce of another individual in order to leave the home. Provider following for home care services: [facility] (Inactive) Electronically signed, Braulio Casas MD 05/18/2022 After Hospital Follow Up Ap pointment(s) Vascular surgery, neurology , podiatry at the [place] When to follow up: 2 to 4 w eeks When is patient being disch arged?: Today Caring for your wound or in cision Your wound or incision is l ocated on your foot. Change dressing daily. Occupational Therapy Eval a nd Treat Physical Therapy Eval and T reat Primary Care Provider rodolfoo w up appointment(s) We have received an order f rom your discharging physician; unfortunately we are unable to schedule the appointment before you are discharged. Please contact the [facility] office at [phone] on the first business day foll owing your discharge. When to follow up: 1 to 5 d ays Regular diet: - eat a wide variety of mazin ds, including fruits and vegetable, dairy, grains and meats - limit the amount of solid fat such as butter, margarine and shortening - get most of your fat sourc es from fish, nuts and vegetable oils Rehab Potential: Excellent Residential Eval and Tr eat Treatment Options: Full Res uscitation Up as tolerated Get regular activity and tr y to walk for a total of 30 minutes per day. Start by walking for 5 to 10 minutes at one time and slowly build to walking for 30 minutes one time. Rest is also an important pa rt of healing. Slowly return to your regular level of activity. Save your energy by spreading out activities that make you tired. Rest as needed. When should you be concerne d? Your health care provider i s: [facility] (Inactive) Please call your health care provider if: - you feel you are getting w orse or having an increase in problems - fever greater than 101 deg cindy - increasing shortness of br eath - any signs of infection (in creasing redness, swelling, tenderness, warmth, change in appearance, or increased drainage) - blood in your urine or sto ol - coughing or vomiting blood - nausea (upset stomach) and vomiting and/or diarrhea that will not stop - severe pain that is not re lieved by medicine, rest or ice Call 911 if you feel you are having a medical emergency. Why were you at the [facility]? You were in the hospital fo r changes in your hand, the neurologist thinks due to a nerve issue and not a stroke. Pending Studies Lab results that may not be resulted at time of discharge: (From admission through now) Start Ordered 05/17/22 1215 AEROBIC BACTE RIAL CULTURE, STAIN ONE TIME, TODAY Question Answer Comment Enter specific specimen site or source. R foot wound Call Gram Stain Stat? no 05/17/22 1205 05/17/22 1215 ANAEROBIC CUL TURE ONE TIME, TODAY Question: Enter specific spe cimen site or source. Answer: R foot wound 05/17/22 1205 Total time spent on discharg e coordination: 35 minutes. Chantell Casas MD Internal Medicine // [facility] 05/15/2022 - Emergency Marquise Sneed, Left hand weakness (Primary Dx); 05/16/2022 Stenosis of carotid artery, unspecified laterality Kelsi Brewer RN Katzung, Katherine Graham, MD Carlone, Cassandra Elizabeth, MD 05/15/2022 Travel 04/06/2022 Lab Requisition Kelsea Sarmiento NP from Last 3 Months Immunizations Name Administration Dates Next Due Pneumococcal Poly,23-Valent (Pneumovax) 01/12/2005 Pneumococcal conj 13-Valent (Prevnar 13) 11/24/2015 Td (Age >=7 Years) 01/12/2005 Tdap 11/24/2015 Family History Medical History Relation Name Comments Heart Disease Brother Unknown Mother d.94. Sudden det erioration, might have been a stroke. Relation Name Status Comments Brother Mother Social History Tobacco Use Types Packs/Day Years Used Date Current Every Day Smoker Cigarettes 1 62 Smokeless Tobacco: Never Used Comments: currently ~5 cigs/day Alcohol Use Standard Drinks/Week Comments Yes 0 (1 standard drink = 0.6 oz pure alcoho l) Maybe 6pk of beer per year Sex Assigned at Date Recorded Not on file COVID-19 Exposure Response Date Recorded In the last 10 days, have you been in contact with No / Unsu re 05/20/2022 2:56 PM CDT someone who was confirmed or suspected to have Coronavirus/COVID-19? Obstetrics History Last Filed Vital Signs Vital Sign Reading Time Taken Comments Blood Pressure 156/90 05/28/2022 1:08 PM CDT Pulse 84 05/28/2022 1:08 PM CDT Temperature 36.8 ??C (98.2 ??F) 05/28/2022 1:08 PM CDT Respiratory Rate 18 05/28/2022 1:08 PM CDT Oxygen Saturation 98% 05/28/2022 1:08 PM CDT Inhaled Oxygen Concentration - - Weight 77 kg (169 lb 12.1 oz) 05/17/2022 6:00 AM CDT Height 177.8 cm (5' 10) 05/15/2022 2:47 PM CDT Body Mass Index 24.36 05/15/2022 2:47 PM CDT Plan of Treatment Health Maintenance Due Date Last Done Comments COVID-19 vaccine series (#1) 1945 Hepatitis C screening for age 0804/13/1963 18-79 Zoster (shingles) series for age 0804/13/1995 50+ (1 of 2) Medicare Wellness for age 65+ 2010 Pneumococcal series for age 65+ (3 11/23/2016 11/24/2015, 0 01/12/2005 - PPSV23 or PCV20) BMI (ht and wt on same day) for 03/25/2018 03/25/2017, 0702/2016, age 18+ 01/07/2016 Depression screening for age 12+ 03/21/2021 03/21/2020, , 03/19/2020, Additional history exists Influenza for age 65+ 04/29/2022 Tetanus booster 11/23/2025 11/24/2015, 01/12/2005 Tdap Completed 11/24/2015 Medical Devices Implanted Type Area Ammonia Solution Preparer Device Shelf Model / Identifier Expiration Serial / Lot Date Implnt Finger Joint Sz [id number] [facility] - [id number] Right: [facility] [id number] / Implanted: Qty: 1 on 02/19/2010 at [facility] [employer] / [id number] Procedures Procedure Name Priority Date/Time Associated Diagnosis Comme nts SCAN-CARDIAC STRIP 05/18/2022 10:18 AM CDT MR HEAD BRAIN WO Routine 05/17/2022 7:44 Results for this PM CDT procedure are i n the results section. US ANKLE BRACHIAL Routine 05/17/2022 6:31 Results for this INDEX BILATERAL PM CDT procedure ar e in the results section. CTA CHEST ABD PELVIS Routine 05/17/2022 2:20 Resu lts for this RUNOFF PM CDT procedure are i n the results section. XR FOOT 3 VIEWS RIGHT Routine 05/17/2022 12:36 Re sults for this PORTABLE PM CDT procedure are i n the results section. ANAEROBIC CULTURE Today 05/17/2022 12:15 Result s for this PM CDT procedure are i n the results section. AEROBIC BACTERIAL Today 05/17/2022 12:15 Result s for this CULTURE, STAIN PM CDT procedure are in the results section. SCAN-CARDIAC STRIP 05/17/2022 9:57 AM CDT CBC W PLT NO DIFF Early AM 05/17/2022 9:49 Results for this AM CDT procedure are i n the results section. BASIC METABOLIC PANEL Early AM 05/17/2022 9:49 Res ults for this AM CDT procedure are i n the results section. LIPID PANEL Early AM 05/17/2022 9:49 Results for this AM CDT procedure are i n the results section. SCAN-CARDIAC STRIP 05/17/2022 3:22 AM CDT GLUCOSE METER Timed 05/17/2022 1:47 Results for this AM CDT procedure are i n the results section. HEMOGLOBIN A1C CASSIDY 05/17/2022 1:40 Results fo r this SCREENING AM CDT procedure are i n the results section. COVID 19 STAT 05/15/2022 4:37 Results for this PM CDT procedure are i n the results section. COVID 19 COLLECTION STAT 05/15/2022 4:37 Resul ts for this PM CDT procedure are i n the results section. CT ANGIO HEAD AND NECK STAT 05/15/2022 3:41 Re sults for this CAROTID PM CDT procedure are i n the results section. CT HEAD BRAIN WO STAT 05/15/2022 3:39 Results for this PM CDT procedure are i n the results section. BASIC METABOLIC PANEL STAT 05/15/2022 3:17 Res ults for this PM CDT procedure are i n the results section. CBC W PLT NO DIFF STAT 05/15/2022 3:17 Results for this PM CDT procedure are i n the results section. CBC WITH AUTO Routine 04/07/2022 8:28 Unspecified Results for this DIFFERENTIAL AM CDT bacterial pneumo cody procedure are in Unspecified severe the resul ts protein-calorie section. malnutrition (HC) CBC WITH AUTO Routine 04/07/2022 8:28 Unspecified Results for this DIFFERENTIAL AM CDT bacterial pneumo cody procedure are in Unspecified severe the resul ts protein-calorie section. malnutrition (HC) COMP METABOLIC PANEL Routine 04/07/2022 8:28 Unspecified Resu lts for this AM CDT bacterial pneumo cody procedure are in Unspecified severe the resul ts protein-calorie section. malnutrition (HC) SEDIMENTATION RATE Routine 04/07/2022 8:28 Unspecified Result s for this AM CDT bacterial pneumo cody procedure are in Unspecified severe the resul ts protein-calorie section. malnutrition (HC) C-REACTIVE PROTEIN Routine 04/07/2022 8:28 Unspecified Result s for this AM CDT bacterial pneumo cody procedure are in Unspecified severe the resul ts protein-calorie section. malnutrition (HC) from Last 3 Months Results SCAN-CARDIAC STRIP (05/18/2022 10:18 AM CDT) Narrative This result has an attachment that is no t available. Scanner OTHER MR HEAD BRAIN WO (05/17/2022 7:44 PM CDT) Anatomical Region Laterality Modality BRAIN, HEAD Magnetic Resonance Specimen (Source) Anatomical Collection Method Collection Time Re ceived Time Location / / Volume Laterality 05/17/2022 8:30 PM CDT Impressions 05/17/2022 8:30 PM CDT 1. No acute infarction, mass effect, or recent intracranial hemorrhage. 2. Chronic lacunar infarctions in the ri ght thalamus and left cerebellar hemisphere. 3. Mild chronic microvascular ischemic c hanges and diffuse cerebral volume loss. 4. Moderately severe mucosal thickening and small air-fluid level in the left maxillary sinus raise the possibility of acute sinusitis. Dictated by Max Lott MD @ 8:30:53 PM (Electronically Signed) Narrative 05/17/2022 8:30 PM CDT For Patients: ??As a result of the Cures Act, medical imaging exams and procedure report s are released immediately into your [facility] medical record. ??You may view this report before your referring provider. ??If you have questions, please contact your health care provider. INDICATION: Stroke. TECHNIQUE: Multiplanar multisequence noncontrast MR images acquired through the brain. COMPARISON: CT brain 05/15/2022. FINDINGS: Prominence of the ventricles and sulci c ompatible with mild diffuse cerebral volume loss. No mass effect or midline shift. Scattered T2 FLAIR hyperintensities in the supratentorial white matter and carlyle , typical for mild chronic microvascular ischemic changes. Chronic lacunar infarctions right thalamus and left cerebellar hemisphere. No diffusion restriction to suggest acut e infarction. Punctate foci of susceptibility within the right internal capsule posterior limb and medial left parietal lobe, favored to represent chronic microhe morrhages. No recent intracranial hemorr virginie or pathologic extra-axial fluid collection. The major arterial flow voids of the sku llbase are preserved. The globes are symmetric. Moderately severe mucosal thickening and small air-fluid level in the left maxillary sinus. [id number] right maxillary sinus mucosal thickening. The mastoid air cells are clear. Procedure Note Max Lott MD - 05/17/2022F ormatting of this note might be different from the original. For Patients: As a result of the Cures Act, medical imaging exams and procedure reports are released immediately into your electronic medical record. You may view this report before your referring provider. If you have questions, please contact yo health care provider. INDICATION: Stroke. TECHNIQUE: Multiplanar multisequence noncontrast MR images acquired through the brain. COMPARISON: CT brain 05/15/2022. FINDINGS: Prominence of the ventricles and sulci c ompatible with mild diffuse cerebral volume loss. No mass effect or midline shift. Scattered T2 FLAIR hyperintensities in the supratentorial white matter and carlyle, typical for mild chronic microvascular ischemic castillo ges. Chronic lacunar infarctions right thalamus and left cerebellar hemisphere. No diffusion restriction to suggest acut e infarction. Punctate foci of susceptibility within the right internal capsule posterior limb and medial left parietal lobe, favored to represent chronic microhemorrhages. No recent intracranial hemorrhage or pathol ogic extra-axial fluid collection. The major arterial flow voids of the sku llbase are preserved. The globes are symmetric. Moderately severe mucosal thickening and small air-fluid level in the left maxillary sinus. [id number]-hm-[id number] right maxillary sinus mucosal thickening. The mastoid air cell s are clear. IMPRESSION: 1. No acute infarction, mass effect, or recent intracranial hemorrhage. 2. Chronic lacunar infarctions in the ri ght thalamus and left cerebellar hemisphere. 3. Mild chronic microvascular ischemic c hanges and diffuse cerebral volume loss. 4. Moderately severe mucosal thickening and small air-fluid level in the left maxillary sinus raise the possibility of acute sinusitis. Dictated by Max Lott MD @ 8:30:53 PM (Electronically Signed) Marky Romero MD MR US ANKLE BRACHIAL INDEX BILATERAL (05/17/2022 6:31 PM CDT) Anatomical Region Laterality Modality ANKLES, ANKLE L, ANKLE R Ultrasound Specimen (Source) Anatomical Location Collection Method / Collectio n Time Received Time / Laterality Volume Impressions 05/18/2022 10:04 AM CDT ?? 1. RIGHT lower extremity: - Resting CHRISTOPHER is severely reduced at 0.4 1. - Monophasic waveforms of the DP and PT, the latter of which was not consistently detected; therefore, CHRISTOPHER co uld not be performed. 2. LEFT lower extremity: - Resting CHRISTOPHER is mildly reduced at 0.81. - Monophasic waveforms of the DP and PT, the latter of which was not consistently detected; therefore, CHRISTOPHER co uld not be performed. Rosalina Rae M.D. Vascular and Interventional Radiology [employer] [email or web address] TARA/brandon Narrative 05/18/2022 10:04 AM CDT For Patients: As a result of the Century Cures Act, medical imaging exams and procedure reports are released immediately into your electronic medical record. ??You may view this repo rt before your referring provider. ?? If you have questions, please contact [facility] care provider. ULTRASOUND ANKLE-BRACHIAL INDICES BILATE RAL 05/17/2022 CLINICAL HISTORY: ??PAD. ?? TECHNIQUE: ??The pedal arteries (posteri or tibial, dorsalis pedis, and peroneal) were evaluated with chaney-scale ultrasound, color flow and Doppler spectral analysis (continuous-wa ve Doppler recordings may be substituted). ??Peak systolic velocities (PSV) and/or Doppler waveform quality were documented at each vessel. Ankle-brachial indices were measured and calculated by placing appro priately sized BP cuffs at ankles and upper arms bilaterally. ??Resting pr essures were documented per exam protocol. ?? COMPARISON: ??None. ?? FINDINGS: ?? Velocity (cm/s)/Phasicity Velocity (cm/ s)/Phasicity Right ??Left ?? Ankle (PT) 6/monophasic 9/monophasic Ankle (DP) 13/monophasic 39/monophasic ANKLE BRACHIAL INDEX: RIGHT - Brachial 140 mmHg - DT 59 mmHg(RI 0.41) - distal PATTERN GRADER not detected LEFT - Brachial 143 mmHg - DP 116 mmHg (RI 0.81) - distal PATTERN GRADER not detected There are bilateral TMAs; therefore, toe brachial indices could not be performed. Susan NEAL US CTA CHEST ABD PELVIS RUNOFF (05/17/2022 2:20 PM CDT) Anatomical Region Laterality Modality CHEST, Abdomen, Pelvis Computed Tomograp hy Specimen (Source) Anatomical Location Collection Method / Collectio n Time Received Time / Laterality Volume Impressions 05/18/2022 8:57 AM CDT ?? 1. ??Severe atherosclerosis of distal ab dominal aorta with multiple atheromatous projections. 2. 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 3. ??Left common femoral has severe plaq ue burden and an aneurysm distally measuring 15 x 17 mm 4. ??Left SFA shows multiple moderate st enosis proximally with two distal stents. There is mild/moderate in stent stenosis of the distal stent. Left popliteal with moderate/severe stenosis 5. ??The left anterior tibial is severel y stenosis proximally, the PT trunk is occluded with collateral distal flow with one vessel runoff on the left. 6. ??Right SFA occluded proximally with multiple occluded stents 7. ??Rigth popliteal severely disease wi th 3 vessel runoff on the right. Driss Alva MD, FACC, FSCCT [facility] OVER-READ ??OVER-READ ??OVER-READ OVER-READ: DETAILED RADIOLOGY EXTRACARDI AC OVER-READ OF CARDIAC CT 05/17/2022 For Patients: As a result of the ntury Cures Act, medical imaging exams and procedure reports are released immediately into your electronic medical record. ??You may view this repo rt before your referring provider. ?? If you have questions, please contact [facility] health care provider. OVER-READ ??OVER-READ ??OVER-READ OVER-READ: DETAILED RADIOLOGY EXTRACARDI AC OVER-READ OF CARDIAC CT, 05/17/2022 COMPARISON: ??CT angiogram chest, abdome n, and pelvis 04/10/2019. CLINICAL HISTORY: ??77-year-old male wit h peripheral arterial disease. ?? Femoral access is necessary for right ca rotid artery stenting. TECHNIQUE: ??Please see separately dicta lloyd report for discussion of technique. ??120 mL Omnipaque-350 intrav enous contrast. This exam is being performed in conjunct ion with the services provided by the [facility] ([facility]). FINDINGS: ??This report discusses non-ca rdiovascular findings. ?? Cardiovasculature is reviewed independen tly. ??Please see separately dictated report for details. CHEST: ??The thyroid gland enhances symm etrically. ??There is a small low attenuating cyst in the inferior cyst in the inferior left lobe measuring 4 mm. ??There is no axillary lymphadenop athy. ??No mediastinal lymphadenopathy. ??No hilar lymphadenopa thy. ??There is an area of right hilar consolidation/ill-defined mass whi ch extends into the right lower lobe. ??At its widest (image 164 of seri es 4) it measures 2.3 x 1.8 cm. ?? There is mild interstitial thickening of the posterior aspect of the left lower lobe. ??Mild bronchiectasis bilate ral lower lobes. ??No other pulmonary nodules identified. ??There is scattered ill-defined irregular opacities in the periphery of the right lower lobe. ??No acute bony lytic or blastic lesions. ?? ABDOMEN: ??Round area of low attenuation in segment IV of the liver measures 9 mm, likely hemangioma or simp le cyst. ??A similar-appearing lesion is seen in segment II and measure s 5 mm. ??No concerning liver lesions. ??The gallbladder is distended but the wall does not appear thickened. ??The adrenal glands, pancrea s, kidneys and spleen appear normal. ?? No free fluid or free air. ??No lymphade nopathy. ??No acute bony lytic or blastic lesions. ??There are changes rel ated to posterior spinal fusion of L4-S1. ?? PELVIS: ??The urinary bladder is unremar kable in a moderately-distended state. ??Prostate and seminal vesicles a ppear symmetric. ??No free fluid. ?? No lymphadenopathy. ??There is a bladder diverticulum or cystocele on the right posterolateral urinary bladder. ?? No acute bony lytic or blastic lesions. ?? LOWER EXTREMITIES: ??No soft tissue mass identified. ??No acute bony lytic or blastic lesions. ?? IMPRESSION: ?? 1. ??Please see separately dictated repo rt regarding cardiovascular findings. 2. ??2.3 x 1.8 cm irregular shaped right hilar/right lower lobe pulmonary nodule which is centered near the hilum and extends peripherally. ??While this could be an infectious process, it is concerning for malignancy. ?? Correlation with clinical history recomm ended. ??If appropriate, it may be amenable to an endobronchial biopsy. ??A t a minimum, follow-up CT in six weeks is recommended. Please note that all CT scans at this [facility] use dose modulation, iterative reconstruction and/or weight-b ased dosing when appropriate to reduce radiation dose to as low as reaso nably achievable. Jayce Narayanan M.D. Vascular and Interventional Radiology [employer] [email or web address] SEGUN/dominic Narrative 05/18/2022 8:57 AM CDT STUDY: ??CTA CHEST, ABDOMEN AND PELVIS, 05/17/2022 ?? STUDY PARAMETERS: ??Contrast used: 120 c c Omnipaque-350; no premedications given; scan protocol is FLASH; total DLP 528; Siemens SOMATOM Definition FLASH dual source [address] ?? INDICATIONS: ??Bilateral lower extremity pain. Risk Factors: Diabetes: No. ?? Tobacco use: Current. ?? SCAN QUALITY: Good. ?? FINDINGS: The heart is well visualized. The scan w as not intended for coronary artery assessment. There is coronary art erial calcification seen although it appears to be mild. ?? The ascending aorta is normal caliber 32 x 33 mm without acute pathology although there is atherosclerotic change in the ascending aorta. ?? The arch vessel anatomy is normal. There is mild stenosis of the proximal brachiocephalic. ??There is moderate nidia que with stenosis in the mid left subclavian. ?? The descending thoracic aorta has severe irregular atheromatous change. SUPRARENAL ABDOMINAL AORTA: ??The suprar enal abdominal aorta has normal takeoff and branching pattern of the daniela iac trunk and superior mesenteric axis. There is atherosclerotic calcifica tion but no severe lesion. ? INFRARENAL ABDOMINAL AORTA: The infraren al abdominal aorta has severe irregular atheromatous change. ? INFERIOR MESENTERIC: The LIEN is small ye t patent. The distal abdominal aorta with severe a theromatous disease with multiple projectile areas of atheroma. ?? RENAL ARTERIES: The renal arteries are p atent bilaterally. ?? LEFT SIDE: The left common iliac is patent with a s mall saccular pseudoaneurysm measuring 10 x 5 mm. There is extensive atherosclerotic change. Left internal iliac is occluded with collater alization. Left external iliac is patent. Left common femoral has severe p laque burden and a moderate stenosis at the inferior aspect of the f emoral head. There is an aneurysm distally measuring 15 x 17 mm. Left SFA shows multiple moderate stenosi s proximally with two distal stents. There is mild/moderate in stent stenosis of the distal stent. Popliteal with moderate/severe stenosis The anterior tibial is severely stenosis proximally The PT trunk is occluded with collateral distal flow One vessel runoff on the left ?? RIGHT SIDE: The right common iliac is patent with at herosclerotic change. The right common and external iliac vessels are pa tent although there is severe narrowing of the ostial right internal i liac vessel. Right common femoral patent Right SFA occluded proximally with multi ple occluded stents Rigth popliteal severely disease There is 3 vessel runoff on the right. ?? Susan NEAL CT XR FOOT 3 VIEWS RIGHT PORTABLE (05/17/2022 12:36 PM CDT) Anatomical Region Laterality Modality FEET, FOOT R Digital Radiography Specimen (Source) Anatomical Collection Method Collection Time Re ceived Time Location / / Volume Laterality 05/17/2022 1:48 PM CDT Narrative 05/17/2022 1:48 PM CDT For Patients: ??As a result of the Cures Act, medical imaging exams and procedure report s are released immediately into your [facility] medical record. ??You may view this report before your referring provider. ??If you have questions, please contact your health care provider. INDICATION: Right dorsal foot wound along TMA incisi on site. Evaluate for osteomyelitis. COMPARISON: None. Technique: Right foot three views Impression: Changes from transmetatarsal amputation. Soft tissue swelling and wound dorsal to the amputation site. No osteolysis or other specific radiographic evidence of osteomyelitis. No acute fracture or dislocation. Dictated by Hay Rowan MD @ May 17 2022 ??1:48PM (Electronically Signed) ?? Procedure Note Hay Rowan MD - 05/17/2022Fo rmatting of this note might be different from the original. For Patients: As a result of the Cures Act, medical imaging exams and procedure reports are released immediately into your electronic medical record. You may view this report before your referring provider. If you have questions, please contact [facility] health care provider. INDICATION: Right dorsal foot wound along TMA incisi on site. Evaluate for osteomyelitis. COMPARISON: None. Technique: Right foot three views Impression: Changes from transmetatarsal amputation. Soft tissue swelling and wound dorsal to the amputation site. No osteolysis or other specific radiographic evidence of osteomyelitis. No acute fracture or dislocation. Dictated by Hay Rowan MD @ May 17 2022 1:48PM (Electronically Signed) Kirstie Chaudhry NP GENERAL IMAGING (ABNORMAL) AEROBIC BACTERIAL CULTURE, STAIN (05/17/2022 12:15 PM CDT) Component Value Ref Test Analysis Performed At [facility] Adsame Method Time Signature CULTURE RESULT (A) 05/20/2022 [employer] 9:43 AM CDT LABORATORY-CE NTRAL LABORATORY CULTURE 4+ Corynebacterium 05/20/2022 [facility] striatum 9:43 AM CDT LABORATORY-CE NTRAL LABORATORY GRAM STAIN No PMNs 05/20/2022 [facility] 9:43 AM CDT LABORATORY-CE NTRAL LABORATORY GRAM STAIN 4+ Gram Positive [facility]/20/2022 [facility] Bacilli 9:43 AM CDT LABORATORY-CE NTRAL LABORATORY Specimen Anatomical Collection Method Collection Time Receive d Time (Source) Location / / Volume Laterality Other (Other) Non-Blood / 05/17/2022 12:15 05/17/2022 Unknown PM CDT 12:21 PM CDT Kirstie Chaudhry NP MICROBIOLOGY Performing Organization Address [facility]/ZIP Code Phon e Number [facility] [address] [place], [place] [address] [place] [address] LABORATORY-CENTRAL 1999 LABORATORY ANAEROBIC CULTURE (05/17/2022 12:15 PM CDT) [facility] Method Time Signature CULTURE No anaerobes 05/22/2022 [facility] isolated 3:14 PM CDT LABORATORY-[facility] TRAL LABORATORY Specimen Anatomical Collection Method Collection Time Receive d Time (Source) Location / / Volume Laterality Other (Other) Non-Blood / 05/17/2022 12:15 05/17/2022 Unknown PM CDT 12:21 PM CDT Kirstie Chaudhry NP MICROBIOLOGY Performing Organization Address City/[facility] Phon e Number [facility] [address] [place] [address] [place] [address] LABORATORY-CENTRAL 1999 LABORATORY SCAN-CARDIAC STRIP (05/17/2022 9:57 AM CDT) Narrative This result has an attachment that is no t available. Scanner OTHER (ABNORMAL) CBC W Plt No Diff (05/17/2022 9:49 AM CDT)Only the most recent of2 resultswithin the time period is included. [facility] [employer] Method Time Signature WHITE BLOOD 7.6 4.5 - 11.0 05/17/2022 [facility] COUNT thou/cu mm 10:22 AM CDT LABORATORY-[facility] TRAL LABORATORY RED BLOOD COUNT 4.47 4.30 - 05/17/2022 [facility] 5.90 10:22 AM CDT LABORATORY-[facility] mil/cu mm TRAL LABORATORY HEMOGLOBIN 13.8 13.5 - 05/17/2022 [facility] 17.5 g/dL 10:22 AM CDT LABORATORY-[facility] TRAL LABORATORY HEMATOCRIT 42.6 37.0 - 05/17/2022 [facility] 53.0 % 10:22 AM CDT LABORATORY-[facility] TRAL LABORATORY MCV 95 80 - 100 05/17/2022 [facility] fL 10:22 AM CDT LABORATORY-[facility] TRAL LABORATORY MCH 30.9 26.0 - 05/17/2022 [facility] 34.0 pg 10:22 AM CDT LABORATORY-[facility] TRAL LABORATORY MCHC 32.4 32.0 - 05/17/2022 [facility] 36.0 g/dL 10:22 AM CDT LABORATORY-[facility] TRAL LABORATORY RDW 15.6 (H) 11.5 - 05/17/2022 [facility] 15.5 % 10:22 AM CDT LAB[facility]AT[facility] TRAL LABORATORY PLATELET COUNT 323 140 - 440 05/17/2022 [facility] thou/cu mm 10:22 AM CDT LAB[facility]AT[facility] TRAL LABORATORY MPV 9.7 6.5 - 11.0 05/17/2022 [facility] fL 10:22 AM CDT LABORATORY[facility] TRAL LABORATORY NRBC 0.0 % 05/17/2022 [facility] 10:22 AM CDT LABORATORY-[facility] TRAL LABORATORY ABS NRBC 0.0 thou /cu 05/17/2022 [facility] [employer] mm 10:22 AM CDT LABORATORY-[facility] TRAL LABORATORY Specimen Anatomical Collection Method / Collection Time Recei brittnee Time (Source) Location / Volume Laterality Blood BLOOD SPECIMEN / Venipuncture / 05/17/2022 9:49 2021 Unknown Unknown AM CDT 10:11 AM CDT Todd Lara MD HEMATOLOGY Performing Organization Address City/State/ZIP Code Phon e Number [facility] [employer] [address] [place] [address] LABORATORY-CENTRAL 2000 LABORATORY (ABNORMAL) Lipid Panel (05/17/2022 9:49 AM CDT) [facility] Method Time Signature CHOLESTEROL,TOTAL 128 100 - 199 05/17/2022 [facility] mg/dL 10:38 AM CDT LABORATORY-[facility] LABORATORY TRIGLYCERIDES 100 <150 05/17/2022 [employer] [facility] mg/dL 10:38 AM CDT LABORATORY-[facility] HDL CHOLESTEROL 23 (L) >40 mg/dL 05/17/2022 [facility] 10:38 AM CDT LABORATORY-[facility] NON-HDL 105 <145 05/17/2022 [facility] CHOLESTEROL mg/dl 10:38 AM CDT LABORATORY-[facility] CHOL/HDL RATIO 5.57 (H) <4.50 05/17/2022 [employer] [facility] 10:38 AM CDT LABORATORY-[facility] LDL CHOLESTEROL 85 <=130 05/17/2022 [facility] mg/dL 10:38 AM CDT LAB[facility]AT[facility] VLDL CHOLESTEROL 20 <=30 05/17/2022 [facility] mg/dL 10:38 AM CDT LABORATORY-[facility] PROVIDER ORDERED FASTING 05/17/2022 [facility] STATUS 10:38 AM CDT LABORATORY[facility] Specimen Anatomical Collection Method / Collection Time Recei brittnee Time (Source) Location / Volume Laterality Blood BLOOD SPECIMEN / Venipuncture / 05/17/2022 9:49 2021 Unknown Unknown AM CDT 10:11 AM CDT Todd Lara MD CHEMISTRY Performing Organization Address City/State/ZIP Code Phon e Number [employer] [address] [place] [id number] LABORATORY-CENTRAL 2000 LABORATORY (ABNORMAL) Basic Metabolic Panel (05/17/2022 9:49 AM CDT)Only the most recent of 2 resultswithin the time period is included. Analysis Performed At Patho logist Time Signature SODIUM 140 135 - 145 05/17/2022 [employer] [facility] mmol/L 10:38 AM CDT LABORATORY-[facility] POTASSIUM 4.2 3.5 - 5.0 05/17/2022 [employer] [facility] mmol/L 10:38 AM CDT LABORATORY-[facility] CHLORIDE 110 98 - 110 05/17/2022 [facility] mmol/L 10:38 AM CDT LAB[facility]ATORY-[facility] CO2,TOTAL 20 (L) 21 - 31 05/17/2022 [employer] mmol/L 10:38 AM CDT LAB[facility]AT[facility] ANION GAP 10 5 - 18 05/17/2022 [employer] 10:38 AM CDT LABORATORY-[facility] GLUCOSE 93 65 - 100 05/17/2022 [facility] [employer] mg/dL 10:38 AM CDT LABORATORY-[facility] CALCIUM 8.4 (L) 8.5 - 10.5 05/17/2022 [facility] [employer] mg/dL 10:38 AM CDT LABORATORY[facility] BUN 11 8 - 25 05/17/2022 [facility] [employer] mg/dL 10:38 AM CDT LAB[facility]ATORY-[facility] CREATININE 0.87 0.72 - 05/17/2022 [facility] [employer] 1.25 mg/dL 10:38 AM CDT LABORATORY-[facility] BUN/CREAT RATIO 13 10 - 20 05/17/2022 [facility] [employer] 10:38 AM CDT LABORATORY-[facility] LAB[facility]ORY eGFR 89 (L) >90 05/17/2022 [facility] [employer] mL/min/1.7 10:38 AM CDT LABORATORY-[facility] 3m2 TRAL LABORATORY Comment: As of 2021, eGFR is calcu lated by the CKD-EPI creatinine equation without race adjustment. eGFR can be inf luenced by muscle mass, exercise, and diet. The reported eGFR is an estimation only and is only applicable if the renal function is stable. Specimen Anatomical Collection Method / Collection Time Recei brittnee Time (Source) Location / Volume Laterality Blood BLOOD SPECIMEN / Venipuncture / 05/17/2022 9:49 2021 Unknown Unknown AM CDT 10:11 AM CDT Todd Lara MD CHEMISTRY Performing Organization Address City/State/ZIP Code Phon e Number [employer] [address] [place] [id number] LABORATORY-CENTRAL 2000 LABORATORY SCAN-CARDIAC STRIP (05/17/2022 3:22 AM CDT) Narrative This result has an attachment that is no t available. Scanner OTHER (ABNORMAL) GLUCOSE METER (05/17/2022 1:47 AM CDT) P athologist Signature GLUCOSE METER 109 (H) 65 - 100 05/17/2022 [facility] [employer] mg/dL 1:47 AM CDT LABORATORY-[facility] Specimen Anatomical Collection Method Collection Time Receive d Time (Source) Location / / Volume Laterality Blood BLOOD SPECIMEN / 05/17/2022 1:47 AM 05/17 1:47 Unknown CDT AM CDT Todd Lara MD CHEMISTRY Performing Organization Address City/[facility]/ZIP Code Phon e Number [employer] [address] [place] [address] LABORATORY-CENTRAL 2000 LABORATORY Hemoglobin A1C Screening (05/17/2022 1:40 AM CDT) P athologist Signature HEMOGLOBIN A1C 5.4 <=6.4 % 05/17/2022 [facility] [employer] SCREENING 8:50 AM CDT LABORATORY-[facility] LABORATORY Specimen Anatomical Collection Method / Collection Time Recei brittnee Time (Source) Location / Volume Laterality Blood BLOOD SPECIMEN / Venipuncture / 05/17/2022 1:40 2021 1:52 Unknown Unknown AM CDT AM CDT Narrative [facility] LABORATORY-CENTRAL LABORAT ORY - 05/17/2022 8:50 AM CDT ? (<5.7%) ?Normal ? (5.7% to 6.4%) ? Indicates pr ediabetes ? (>=6.5%) ? Confirms diabetes Falsely low levels may be seen with: Recent Transfusion, Recent Significant B lood Loss, Hemolytic Diseases, or Falsely elevated levels may be seen with : Untreated Anemias, Splenectomy Todd Lara MD CHEMISTRY Performing Organization Address City/[facility]/ZIP Code Phon e Number [facility] [employer] [address] [place] [address] LABORATORY-CENTRAL 2000 LABORATORY COVID 19 (05/15/2022 4:37 PM CDT) Analysis Performed At [facility] logist Time Signature COVID 19 Negative Negative 05/15/2022 [facility] 8:24 PM CDT [facility] Comment: All PCR tests are subject to fa lse negative result due to variability in viral load and collection technique. A n egative result does not rule out a SARS-CoV-2 infection. Clinical correlation required . Specimen Anatomical Location / Collection Method Collection Buck e Received Time (Source) Laterality / Volume Other SPECIMEN FROM Non-Blood / 05/15/2022 4:37 05/15/2022 6:02 NASOPHARYNGEAL Unknown PM CDT PM CDT STRUCTURE / Unknown Narrative [facility] LABORATORY - 8:24 PM CDT This test has been authorized by FDA und er an Emergency Use Authorization (EUA). This test is only authorized for the duration of time the declaration that circumstances exist justifying the authorization of th e emergency use of in vitro diagnostic tests for detection of SARS-CoV-2 virus and/or diagnosis of COVID-19 infection under section 564(b)(1) of the Act, 21 U.S.C. 360bbb-3(b) (1), unless the authorization is terminated or revoked sooner. Marquise Sneed MD MICROBIOLOGY Performing Organization Address [facility] Phon e Number [facility] LABORATORY [address] [place] [address] COVID 19 COLLECTION (05/15/2022 4:37 PM CDT) [facility] Method Time Signature TESTING [facility] 05/15/2022 [facility] Laboratory 6:02 PM CDT [facility] Comment: Specimen submitted to [facility] Laboratory for testing. Specimen Anatomical Location / Collection Method Collection Buck e Received Time (Source) Laterality / Volume Other SPECIMEN FROM Non-Blood / 05/15/2022 4:37 05/15/2022 6:02 NASOPHARYNGEAL Unknown PM CDT PM CDT STRUCTURE / Unknown Marquise Sneed MD SEND OUTS Performing Organization Address [facility] e Number [facility] LABORATORY [address] [place] [address] CT ANGIO HEAD AND NECK CAROTID (05/15/2022 3:41 PM CDT) Anatomical Region Laterality Modality BRAIN, NECK Computed Tomography Specimen (Source) Anatomical Collection Method Collection Time Re ceived Time Location / / Volume Laterality 05/15/2022 5:05 PM CDT Addenda Addendum by Briana Tineo MD on 05/15/2022 5:09 PM CDT For Patients: ??As a result of the Cures Act, medical imaging exams and procedure reports are released immediately into your electronic medical record. ??You may view this repo rt before your referring provider. ?? If you have questions, please contact [facility] care provider. CT ANGIOGRAM HEAD DATE: 05/15/2022 CLINICAL HISTORY: Patient with left hand weakness, in-stent stenoses. TECHNIQUE: Standard helical CT image acq uisition through the intracranial circulation following intravenous admini stration of contrast material with bolus tracking. Multiplanar reconstructe d images were performed and interpreted. COMPARISON: CT same day. FINDINGS: There is no cerebral aneurysm or large v essel occlusion. The right internal carotid artery is nor mal. The right middle cerebral artery and its branches are normal. The right anterior cerebral artery and its branches are normal. The left internal carotid artery is norm al. The left middle cerebral artery and its branches are normal. The left anterior cerebral artery and its branches are normal. The anterior communicating artery is wel l visualized and appears normal. The right vertebral artery and PICA are normal. The left vertebral artery and PICA are normal. The vertebral arter ies are codominant. The basilar artery is patent and appears normal. The right posterior cerebral artery is normal. The left post erior cerebral artery is normal. The visualized venous structures are pat ent. IMPRESSION: Normal CT angiogram of the head without intracranial aneurysm or other neurovascular abnormality. Please note that all CT scans at this [facility] use dose modulation, iterative reconstruction, and/or weight- based dosing when appropriate to reduce radiation dose to as low as reaso nably achievable. Dictated by: Briana Tineo MD @ 022 17:07:46 (Electronically Signed) Impressions 05/15/2022 5:05 PM CDT 1. Interval right common carotid artery stenting with a large amount of plaque/intimal hyperplasia in the mid segment of the stent causing a critical (>99%) in-stent stenosis by NASCET criteria with a hairline residual lumen. 2. Interval left internal carotid artery origin stenting with a moderate amount of plaque/intimal hyperplasia in the proximal segment of the stent causing a severe (77%) in-stent stenosis by NASCET criteria with a 0.9mm residual lumen. 3. Mild (<50%) stenosis at the origin of the right internal carotid artery by NASCET criteria caused by an ulcerated, non-calcified plaque with a >2mm residual lumen. 4. Mild left common carotid artery steno sis. Findings were discussed with Dr. Cerda on at 5:05 PM. Please note that [facility] use dose modulation, iterative reconstruction, and/or weight-based dosing when appropriate to reduce radiation dose to as low as reasonably achievable. Dictated by: Briana Tineo MD @ 022 17:05:54 (Electronically Signed) Narrative 05/15/2022 5:05 PM CDT For Patients: ??As a result of the Cures Act, medical imaging exams and procedure report s are released immediately into your [facility] medical record. ??You may view this report before your referring provider. ??If you have questions, please contact your health care provider. CT ANGIOGRAM NECK DATE: 05/15/2022 CLINICAL HISTORY: Patient with left hand weakness. TECHNIQUE: Standard helical CT image acq uisition of the neck up to the skull base after bolus intravenous contrast enhancement. ??Multiplanar reconstructed images performed on a separate workstation. COMPARISON: CT same day, CTA 01/07/2016. FINDINGS: There has been interval right common car otid artery stenting. There is a large amount of plaque/intimal hyperplasia in the mid segment of the stent causing a critical (>99%) in-stent stenosis by NASCET criteria with a hairline residual lumen. There has been interval left internal ca rotid artery origin stenting. There is a moderate amount of plaque/intimal hyperplasia in the proximal segment of the stent causing a severe (77%) in-stent stenos is by NASCET criteria with a 0.9mm resid ual lumen. There is a mild (<50%) stenosis at the o rigin of the right internal carotid artery by NASCET criteria. This is caused by an ulcerated, non-calcified plaque with a >2mm residual lumen. The left common carotid artery demonstra bryon mild narrowing in its mid segment. The origins of the great vessels from th e aortic arch are patent. The origin of the right vertebral artery demonstraates mild narrowing. The origin of the left vertebral artery is patent. The rest of the cervical segments of the internal carotid arteries are patent up to the skull base. The vertebral arteries are codominant. T he cervical segments of the vertebral arteries are patent up to the skull base. The visualized lung apices are unremarka ble. The thyroid gland is unremarkable. The soft tissues of the neck are unremar kable. There are degenerative changes in the ce rvical spine. Procedure Note Briana Tineo MD - 05/15/2022 For Patients: As a result of the ntury Cures Act, medical imaging exams and procedure reports are released immediately into your electronic medical record. You may view this report before your referring provider. If you have questions, please contact [facility] health care provider. CT ANGIOGRAM NECK DATE: 05/15/2022 CLINICAL HISTORY: Patient with left hand weakness. TECHNIQUE: Standard helical CT image acq uisition of the neck up to the skull base after bolus intravenous contrast enhancement. Multiplanar reconstructed images performed on a separate workstation. COMPARISON: CT same day, CTA 01/07/2016. FINDINGS: There has been interval right common car otid artery stenting. There is a large amount of plaque/intimal hyperplasia in the mid segment of the stent causing a critical (>99%) in-stent stenosis by NASCET criteria with a hairline residual lumen. There has been interval left internal ca rotid artery origin stenting. There is a moderate amount of plaque/intimal hyperplasia in the proximal segment of the stent causing a severe (77%) in-stent stenosis by NASCET criteria with a 0.9mm residual lumen. There is a mild (<50%) stenosis at the o rigin of the right internal carotid artery by NASCET criteria. This is caused by an ulcerated, non-calcified plaque with a >2mm residual lumen. The left common carotid artery demonstra bryon mild narrowing in its mid segment. The origins of the great vessels from th e aortic arch are patent. The origin of the right vertebral artery demonstraates mild narrowing. The origin of the left vertebral artery is patent. The rest of the cervical segments of the internal carotid arteries are patent up to the skull base. The vertebral arteries are codominant. T he cervical segments of the vertebral arteries are patent up to the skull base. The visualized lung apices are unremarka ble. The thyroid gland is unremarkable. The soft tissues of the neck are unremar kable. There are degenerative changes in the ce rvical spine. IMPRESSION: 1. Interval right common carotid artery stenting with a large amount of plaque/intimal hyperplasia in the mid segment of the stent causing a critical (>99%) in-stent stenosis by NASCET criteria with a hairline residual lumen. 2. Interval left internal carotid artery origin stenting with a moderate amount of plaque/intimal hyperplasia in the proximal segment of the stent causing a severe (77%) in-stent stenosis by NASCET criteria with a 0.9mm residual lumen. 3. Mild (<50%) stenosis at the origin of the right internal carotid artery by NASCET criteria caused by an ulcerated, non-calcified plaque with a >2mm residual lumen. 4. Mild left common carotid artery steno sis. Findings were discussed with Dr. Cerda on at 5:05 PM. Please note that all CT scans at this [facility] use dose modulation, iterative reconstruction, and/or weight-based dosing when appropriate to reduce radiation dose to as low as reasonably achievable. Dictated by: Briana Tineo MD @ 022 17:05:54 (Electronically Signed) Marquise Sneed MD CT CT HEAD BRAIN WO (05/15/2022 3:39 PM CDT) Anatomical Region Laterality Modality HEAD, BRAIN Computed Tomography Specimen (Source) Anatomical Collection Method Collection Time Re ceived Time Location / / Volume Laterality 05/15/2022 4:11 PM CDT Impressions 05/15/2022 4:11 PM CDT No acute intracranial findings. Dictated by Ramsey Clark MD @ 05/15/2022 4:11:46 PM Please note that all CT scans at this [facility] use dose modulation, iterative reconstruction, and/or weight-based dosing when appropriate to reduce radiation dose to as low as reasonably achievable. Dictated by: Ramsey Clark MD @ 05/15/20 22 16:11:52 (Electronically Signed) Narrative 05/15/2022 4:11 PM CDT For Patients: ??As a result of the 21st Century Cures Act, medical imaging exams and procedure report s are released immediately into your [facility] medical record. ??You may view this report before your referring provider. ??If you have questions, please contact your health care provider. INDICATION: Left hand weakness. TECHNIQUE: Head CT without intravenous contrast. Co sana and sagittal reformats. COMPARISON: CTA 01/07/2016. FINDINGS: No intracranial hemorrhage, extra-axial collection, or evidence of acute cortical infarct. Small chronic lacunar infarct involving the right thalamus (series 3, image 26). Age-appropriate ventricles and sulci. No mass effect or midline shift. The cranium is intact. Leftward of the right maxillary sinus mucosal thickening. Similar left ethmoid 2 cm partially sclerotic osseous lesion (series 4, image 13 ), likely an osteoma. The mastoid air ce lls are clear. Procedure Note Ramsey Clark MD - 05/15/2022For matting of this note might be different from the original. For Patients: As a result of the ntury Cures Act, medical imaging exams and procedure reports are released immediately into your electronic medical record. You may view this report before your referring provider. If you have questions, please contact [facility] care provider. INDICATION: Left hand weakness. TECHNIQUE: Head CT without intravenous contrast. Co sana and sagittal reformats. COMPARISON: CTA 01/07/2016. FINDINGS: No intracranial hemorrhage, extra-axial collection, or evidence of acute cortical infarct. Small chronic lacunar infarct involving the right thalamus (series 3, image 26). Age-appropriate ventricles and sulci. No mass effect or midline shift. The craniu m is intact. Leftward of the right maxillary sinus mucosal thickening. Similar left ethmoid 2 cm partially sclerotic osseous lesion (series 4, image 13), likely an osteoma. The mastoid air cells are clear. IMPRESSION: No acute intracranial findings. Dictated by Ramsey Clark MD @ 05/15/2022 4:11:46 PM Please note that all CT scans at this [facility] use dose modulation, iterative reconstruction, and/or weight-based dosing when appropriate to reduce radiation dose to as low as reasonably achievable. Dictated by: Ramsey Clark MD @ 05/15/20 16:11:52 (Electronically Signed) Marquise Sneed MD CT (ABNORMAL) SEDIMENTATION RATE (04/07/2022 8:28 AM CDT) [facility] gist Method Time Signature SEDIMENTATION RATE 80 (H) <20 mm/hr 04/07/2022 [place] 9:46 AM CDT [facility] Specimen Anatomical Collection Method / Collection Time Recei brittnee Time (Source) Location / Volume Laterality Blood BLOOD SPECIMEN / Venipuncture / 04/07/2022 8:28 2021 9:05 Unknown Unknown AM CDT AM CDT Kelsea Youngblood Guillermina ROMERO HEMATOLOGY Performing Organization Address City/State/ZIP Code Phon e Number [facility] LABORATORY [address] [facility] [address] (ABNORMAL) CBC WITH AUTO DIFFERENTIAL (04/07/2022 8:28 AM CDT) [facility] Method Time Signature WHITE BLOOD 10.8 4.5 - 04/07/2022 [place] COUNT 11.0 9:12 AM T [facility] thou/cu LABORATORY mm RED BLOOD COUNT 4.07 (L) 4.30 - 04/07/2022 [place] 5.90 9:12 AM CDT [facility] mil/cu mm LABORATORY HEMOGLOBIN 12.6 (L) 13.5 - 04/07/2022 [place] 17.5 g/dL 9:12 AM [facility] LABORATORY HEMATOCRIT 40.8 37.0 - 04/07/2022 [place] 53.0 % 9:12 AM [facility] LABORATORY MCV 100 80 - 100 04/07/2022 [place] fL 9:12 AM [facility] LABORATORY MCH 31.0 26.0 - 04/07/2022 [place] 34.0 pg 9:12 AM [facility] LABORATORY MCHC 30.9 (L) 32.0 - 04/07/2022 [place] 36.0 g/dL 9:12 AM [facility] LABORATORY RDW 15.5 11.5 - 04/07/2022 [place] 15.5 % 9:12 AM [facility] LABORATORY PLATELET COUNT 545 (H) 140 - 440 04/07/2022 [place] thou/cu 9:12 AM CDT [facility] mm LABORATORY MPV 9.7 6.5 - 04/07/2022 [place] 11.0 fL 9:12 AM T [facility] LABORATORY % NEUT 45.1 % 04/07/2022 [place] 9:12 AM T [facility] LABORATORY % LYMPH 33.5 % 04/07/2022 [place] 9:12 AM T [facility] LABORATORY % MONO 13.9 % 04/07/2022 [place] 9:12 AM T [facility] LABORATORY % EOS 7.2 % 04/07/2022 [place] 9:12 AM [facility] LABORATORY % BASO 0.3 % 04/07/2022 [place] 9:12 AM [facility] LABORATORY ABSOLUTE 4.9 1.7 - 7.0 04/07/2022 [place] NEUTROPHILS thou/cu 9:12 AM [facility] mm LABORATORY ABSOLUTE 3.6 (H) 0.9 - 2.9 04/07/2022 [place] LYMPHOCYTES thou/cu 9:12 AM [facility] mm LABORATORY ABSOLUTE 1.5 (H) <0.9 04/07/2022 [place] MONOCYTES thou/cu 9:12 AM [facility] mm LABORATORY ABSOLUTE 0.8 (H) <0.5 04/07/2022 [place] EOSINOPHILS thou/cu 9:12 AM [facility] mm LABORATORY ABSOLUTE 0.0 <0.3 04/07/2022 [place] BASOPHILS thou/cu 9:12 AM [facility] mm LABORATORY Specimen Anatomical Collection Method / Collection Time Recei brittnee Time (Source) Location / Volume Laterality Blood BLOOD SPECIMEN / Venipuncture / 04/07/2022 8:28 2021 9:05 Unknown Unknown AM CDT AM CDT Kelsea Sarmiento NP HEMATOLOGY Performing Organization Address City/[facility] Phon [facility] LABORATORY [address] [place] [address] (ABNORMAL) C-REACTIVE PROTEIN (04/07/2022 8:28 AM CDT) Analysis Performed At Patho logist Time Signature C-REACTIVE 1.28 (H) <0.50 04/07/2022 [place] [facility] mg/dL 9:47 AM [facility] LABORATORY Specimen Anatomical Collection Method / Collection Time Recei brittnee Time (Source) Location / Volume Laterality Blood BLOOD SPECIMEN / Venipuncture / 04/07/2022 8:28 2021 9:05 Unknown Unknown AM CDT AM CDT Kelsea Sarmiento NP CHEMISTRY Performing Organization Address City/[facility] Phon e Number [facility] LABORATORY [address] [place] [address] (ABNORMAL) COMP METABOLIC PANEL (04/07/2022 8:28 AM [facility]) [facility] Method Time Signature SODIUM 144 135 - 145 04/07/2022 [place] mmol/L 9:51 AM [facility] LABORATORY POTASSIUM 3.5 3.5 - 5.0 04/07/2022 [place] mmol/L 9:51 AM [facility] LABORATORY CHLORIDE 110 98 - 110 04/07/2022 [place] mmol/L 9:51 AM [facility] LABORATORY CO2,TOTAL 24 21 - 31 04/07/2022 [place] mmol/L 9:51 AM [facility] LABORATORY ANION GAP 10 5 - 18 04/07/2022 [place] 9:51 AM [facility] LABORATORY GLUCOSE 100 65 - 100 04/07/2022 [place] mg/dL 9:51 AM [facility] LABORATORY CALCIUM 9.4 8.5 - 10.5 04/07/2022 [place] mg/dL 9:51 AM [facility] LABORATORY BUN 17 8 - 25 04/07/2022 [place] mg/dL 9:51 AM [facility] LABORATORY CREATININE 0.89 0.72 - 04/07/2022 [place] 1.25 mg/dL 9:51 AM [facility] LABORATORY BUN/CREAT RATIO 19 10 - 20 04/07/2022 [place] 9:51 AM [facility] ALBUMIN 3.9 3.2 - 4.6 04/07/2022 [place] g/dL 9:51 AM [facility] PROTEIN,TOTAL 7.9 6.0 - 8.0 04/07/2022 [place] g/dL 9:51 AM [facility] GLOBULIN 4.0 (H) 2.0 - 3.7 04/07/2022 [place] g/dL 9:51 AM [facility] A/G RATIO 1.0 1.0 - 2.0 04/07/2022 [place] 9:51 AM [facility] BILIRUBIN,TOTAL 0.3 0.2 - 1.2 04/07/2022 [place] mg/dL 9:51 AM [facility] ALK PHOSPHATASE 140 (H) 50 - 136 04/07/2022 [place] IU/L 9:51 AM [facility] ALT (SGPT) 31 8 - 45 04/07/2022 [place] IU/L 9:51 AM [facility] AST (SGOT) 17 2 - 40 04/07/2022 [place] IU/L 9:51 AM [facility] eGFR 89 (L) >90 04/07/2022 [place] mL/min/1.7 9:51 AM [facility] 3m2 [facility] Comment: As of 2021, eGFR is calcu lated by the CKD-EPI creatinine equation without race adjustment. eGFR can be inf luenced by muscle mass, exercise, and diet. The reported eGFR is an estimation only and is only applicable if the renal function is stable. Specimen Anatomical Collection Method / Collection Time Recei brittnee Time (Source) Location / Volume Laterality Blood BLOOD SPECIMEN / Venipuncture / 04/07/2022 8:28 2021 9:05 Unknown Unknown AM [facility] Kelsea Sarmiento NP CHEMISTRY Performing Organization Address City/State/ZIP Code Phon e Number [facility] [address] [place] [address] from Last 3 Months Insurance Payer Benefit Plan / Subscriber ID Effective Phone Address T ype Group Dates [employer] PPS [facility] [id number] 2019-Prese [address] MEDICARE nt [place], [facility] [phone] UCARE MR [employer] MEDICARE [id number] 2019-Prese [address] [place] [address] [employer] [id number] 2019-Prese [place] [employer] nt [address] [place] [address] MEDICARE PART B - [place] MEDICARE PART [id number] 1996-Prese ATTN: CLAIMS USE ONLY B HB ONLY nt [address] [facility] [place] [phone] (Home) [place] [id number] [place] Personal/Family Self [id number] (Home) [place] [id number] Advance Directives Latest Code Status on File Code Status Date Activated Date Inactivated Comments Full Code 05/17/2022 1:08 AM 05/18/2022 11:14 PM Code Status Discussion: Per Existing Order Full Code 02/19/2010 5:47 AM 02/19/2010 1:38 PM Full Code 10/14/2009 10:34 AM 10/14/2009 10:35 AM Care Teams 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 [facility] [address] Internal zip: [address] [place] [address] Eric Hickey Consulting Physician Surgery - Orthopedics 07/12/16 MD Yareli Antonio Vitale Specialist 09/22/18 Emergency Contact - 09/20/16 Riley Waters [address] [place] [address] [facility] 06/30/17 [place] [facility] [facility] 06/30/17 [facility] Jim - Jord[place] [employer] Rep 07/28/17 - [facility] [address] [place] [address] [employer] 11/28/17 Program Theresa Lopez 04/29/19 [facility] [address] [place] [place] [address]
--- NOTE | 2022-06-10 00:59 | ED.NURSE ---
please see MD greer r/t to description/care of right foot.
[2022-06-10 01:47] LABS: Appearance Urine Clear (Clear); Bilirubin Urine Negative (Negative); Blood Urine Negative (Negative); Color Urine Yellow (Yellow); Glucose Urine Negative (Negative); Ketones Urine Negative (Negative); Leukocyte Esterase Urine Negative (Negative); Nitrite Urine Negative (Negative); Protein Urine Negative (Negative); pH Urine 6.5 (5.0-8.5)
[2022-06-10 02:00] VITALS: BP 116/67; PULSE 76; RESP 16; TEMP 37; O2SAT 99
[2022-06-10 02:12] LABS: RBC Urine 0-2 (0-2); WBC Urine 0-2 (0-5)
--- NOTE | 2022-06-10 02:14 | ED.NURSE ---
dressing changed, wet to dry with kerlix wrap per MD.
[2022-06-10 03:40] VITALS: BP 116/67; PULSE 76; RESP 16; TEMP 37
== END 2022-06-10 03:41 | disposition home or self-care (01) ==
PROVIDERS: Emergency Provider Family Medicine
DX: T81.89XA Other complications of procedures, not elsewhere classified, initial encounter (principal); L03.115 Cellulitis of right lower limb
CPT/HCPCS: 81001; 87070; 99283; 99284